=== PATIENT | male | born 1970 | race Caucasian/White ===

== ENCOUNTER 2024-10-14 13:11 | Day surgery (SDC) | payer BC, SELFPAY ==
--- NOTE | 2024-10-11 16:28 | PAT.ANESEVAL ---
Pre-Assessment Diagnosis/Proposed Procedure Planned Operative Procedure(s): RIGHT ORCHIECTOMY RADICAL Anesthesia History Anesthesia History - obstetrician gynecologist: Anesthesia History - obstetrician gynecologist Hx Hospitalization No 10/07/24 13:54 Any Problems With Anesthesia No 10/07/24 13:54 Cholinesterase deficiency No 10/07/24 13:54 You/Your Family Experience No 10/07/24 13:54 fever (hyperthermia) with Relationship Recent Exposure to Contagious Disease Does patient have nerve No 10/07/24 13:54 stimulator Patient instructed to have device shut off --Does patient have Pacemaker or ICD? When Was Last Pacemaker Check QUESTION #4 FULL TEXT: You/Your Family Experience fever (hyperthermia) with Anesthesia Last Oral Intake Last Oral intake: Last Oral Intake NPO since Meds taken in AM with sips of water? Meds patient instructed to take am of surgery PONV PONV - obstetrician gynecologist: PONV - obstetrician gynecologist Female No 10/07/24 13:54 HX of Motion Sickness No 10/07/24 13:54 HX of N/V After Surgery No 10/07/24 13:54 Non-Smoker No 10/07/24 13:54 Duration of Surgery greater Yes 10/07/24 13:54 than 60 minutes Number of Risk Factors 1 10/07/24 13:54 PONV Score Low Risk 10/07/24 13:54 Height & Weight Height & Weight: Anesthesia: Height & Weight Height 5 ft 10 in 11/04/23 10:03 Respiratory Assessment Respiratory Assessment - obstetrician gynecologist: Respiratory Tract Infection Hx - obstetrician gynecologist Hx Respiratory Tract Infection No 10/07/24 13:54 STOP Sleep Apnea STOP Sleep Apnea - obstetrician gynecologist: STOP Sleep Apnea - obstetrician gynecologist Hx Hypertension No 10/07/24 13:54 Hx Sleep Apnea No 10/07/24 13:54 CPAP BIPAP Do you snore loudly (louder Yes 10/07/24 13:54 than talking or can be heard Do you often feel tired/ No 10/07/24 13:54 fatigued/ sleepy during daytime? Has anyone observed you stop No 10/07/24 13:54 breathing during sleep? STOP Results Negative 10/07/24 13:54 QUESTION #5 FULL TEXT : Do you snore loudly (louder than talking or can be heard through closed doors)? 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 Specify any problems Hx of Preganancy in last 3 N/A 10/07/24 13:54 Months Nurse Filling Out Transfusion DSCHRIBER 10/07/24 13:54 & Questions: Date: 10/07/24 10/07/24 13:54 Time: 13:56 10/07/24 13:54 Patient unable to answer at this time (ie. confused, unrespo /Reproduction History /Reproductive History - obstetrician gynecologist: /Reproductive Hx- obstetrician gynecologist Hx Now No 10/07/24 13:54 Gestational Age (in weeks): EDC: Hx Hx Para Hx Section SAB No 10/07/24 13:54 PFSH Medical History (Updated 10/07/24 @ 14:03 by Enedina Angeles) Loss of hearing Wears glasses Cancer Marijuana use Alcohol use Arthritis Back pain Migraine headache Smoker Leg cramps History of pain when walking CINV (chemotherapy-induced nausea and vomiting) Encounter for chemotherapy management Encounter for education Adenocarcinoma, colon Iron deficiency anemia GERD (gastroesophageal reflux disease) Hyperlipidemia Home Medications ?Medication ?Instructions ?Recorded ?Last Taken ?Type acetaminophen 500 mg tablet 1,000 mg PO Q6H PRN pain 10/07/24 Unknown History wevuqqs-kdxtxhukklpjl-ckgwzusx 250 1 tab PO Q6H PRN pain 10/07/24 Unknown History mg-250 mg-65 mg tablet (Excedrin Extra Strength) ibuprofen 800 mg tablet (IBU) 800 mg PO Q8H PRN pain 10/07/24 Unknown History Allergy/AdvReac Type Severity Reaction Status Date / Time No Known Allergies Allergy Verified 10/07/24 13:50 Family History Grandmother No problems noted. Mother Cancer lung Father Myocardial infarction Heart disease Surgical History (Updated 10/07/24 @ 14:03 by Enedina Angeles) Hx of colonoscopy Hx of right hemicolectomy Social History Smoking Status: Current every day smoker tobacco type: cigarettes and smokeless tobacco alcohol intake: current alcohol intake frequency: a few times a month Audit: Pertinent Findings Pertinent Findings EKG Perinent findings: October 09, 2024. Normal sinus rhythm. Left axis deviation. Incomplete right bundle branch block. No significant change compared to EKG of June 30, 2023. Recommendation Anesthesia Recommendation Anesthesia recommendation: OPTIMIZED for anesthesia
[2024-10-14] VITALS (10 sets, daily range): BP systolic 144–163; BP diastolic 85–99; PULSE 79–93; RESP 16–22; TEMP 36.3–37.3; O2SAT 98–100; BMI 32.1
--- NOTE | 2024-10-14 | IMM_PTH ---
PATIENT: RONALD MELO LOC: [facility] [place] U#:[id number] AGE/SX: 54/M ROOM: RE10/14/[address]: Dr. Viet Rea MD : 1970 BED: DIS: 10/14/2024 SPEC #: [id number] RECD: 10/18/24 11:29 STATUS: VIC REQ #: [id number] CL: 10/14/24 00:[address]: Viet Rea DEPT: IMMUNOHISTOCHEMISTRY RECD BY: Venancio Dorado ENTERED: 10/18/24 11:30 SP TYPE: IMMUNO OTHR DR: Dr. Anca Samuel, DO Tissues: A - Testis, NOS Procedures: RCC (add) NAPSIN A (add) CK20 (add) CK5-6 (add) CK7 (add) CK8 (add) HEP PAR (add) KI-67 (add) P53 (add) CT (add) TTF1 (add) Pankeratin (add) P40 (add) CDX2 (add) MOC-31 (add) ER (initial) PHYSICIAN & INSTITUTION [place] [phone] SPECIMEN INFORMATION: Tissue Source: A- Right testicle Clinical Info: Right paratesticular mass Specimen Number: [id number] CPT code: 63392,03200y32 METHODOLOGY: Deparaffinized sections of prefer/formalin-fixed tissue or PAP/DQ stained slides are incubated with monoclonal/polyclonal antibodies/oligonucleotide probes. Localization is made via biotin free immunoperoxidase method. Appropriate controls are performed and reacted as expected. Results on target cell population are indicated in the following table: RESULTS: ANTIBODY / CLONE RESULT Block A 7 AE1-3 (AE1/AE3/PCK26) positive CK7 (OV-TL12/30) negative CK8 (16sxgrG20) positive CK20 (KS20.8) positive CDX2 (JDR7170B) positive MOC-31 (4561) positive TTF-1 (8G7G3/1) positive Napsin A (Rabbit Polyclonal) negative HepPar (OCh1E5) negative RCC (PN-15) negative CK5-6 (D5 & 1684) negative P40 (BC28) negative P53 (DO-7) positive (indeterminate pattern) Ki-67 (30-9) positive, high PSAP (PASE/4LJ) negative These tests were developed and their performance characteristics determined by [facility]. They may not have been cleared or approved by the U.S. Food and Drug Administration. The FDA has determined that such clearance or approval is not necessary. The above immunohistochemical/dualISH markers are ordered and reviewed by the Pathologist. INTERPRETATION: A. Right testicular, radical orchiectomy: Metastatic mucinous adenocarcinoma. See comment. 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 SJ.mr 10/19/2024
[2024-10-14] MEDS: 0.9% Normal Saline (1000mL) 1,000 ML 15 ML IV (14:33)
--- NOTE | 2024-10-14 15:15 | TEST_PTH ---
PATIENT: RONALD MELO LOC: [facility] [place] U#:[id number] AGE/SX: 54/M ROOM: RE10/14/[address]: Dr. Viet Rea MD : 1970 BED: DIS: 10/14/2024 SPEC #: [id number] RECD: 10/17/24 09:55 STATUS: VIC REGeoffrey #: [id number] CL: 10/14/24 15:[address]: Viet Rea DEPT: SURGICAL PATHOLOGY RECD BY: Dania Abraham ENTERED: 10/17/24 11:19 SP TYPE: TESTICLE OTHR DR: Dr. Anca Samuel, DO Tissues: A - Testis, NOS B - Spermatic cord, NOS Procedures: Surgery Specimen Level III Surgery Specimen Level HEADER OPERATION: Orchiectomy PRE-OP DIAGNOSIS: Right paratesticular mass TISSUE SUBMITTED: A- Right testicle, B- Tail of spermatic cord MICROSCOPIC DIAGNOSIS A. Right testicle, radical orchiectomy: Metastatic mucinous adenocarcinoma. See note and comment. NOTE: Immunohistochemistry ([id number]) supports the above diagnosis and consistent with colonic primary. . B. Tail of spermatic cord, biopsy: Negative for carcinoma. 10/18/2024 COMMENT A. The tumor is present in the paratesticular, periepididymal and spermatic cord adiopse tissue. Involvement of the epididymis, testicle or vas deference is not seen. Please make reference to previous specimen from [facility] ([id number]) right colon, hemicolectomy specimen with diagnosis of invasive moderately differentiated adenocarcinoma, colonic type, invading into but not through the muscularis propria, 1 out of 20 regional lymph nodes is positive for metastasis. Margins are free. Immunohistochemistry for microsatellite instability (mismatch repair of protein) can be performed, please notify the laboratory if needed. This case has been reviewed in consultation with Dr. Nunes who concurs with the above diagnosis. IDC:PW MICROSCOPIC DESCRIPTION Slides are reviewed. GROSS DESCRIPTION A. Received in fixative is one container labeled with the patient's name and designated Right testicle. The specimen consists of a radical orchiectomy specimen consisting of testicle with spermatic cord weighing 76.5gm and measuring 10 x 6 x 4cm. Sections reveal a rodriguez solid, mucoidy and focally cystic mass adjacent to the testis and spermatic cord measuring 9 x 3.5 x 2.5cm. Testis measures 4.5 x 3 x 2.5cm. No direct involvement of the testis is noted. Obvious epididymis is identified. Mass does not appear to involve testicular parenchyma. Basin Operator sections are submitted in twelve cassettes as follows: 1- spermatic cord resection margin, 2-6- tumor present in spermatic cord, 7-11- tumor adjacent to testicle, 12- uninvolved portion of testicle parenchyma. B. Received in fixative is one container labeled with the patient's name and designated Tail of spermatic cord. The specimen consists of an irregular piece of adipose tissue measuring 3 x 2 x 1cm. A suture is noted at one edge. The entire specimen is submitted in two cassettes. Cassette 1 contains the area close to the suture. SJIlsa 10/17/2024 TC:[id number] ADDENDUM ADDENDUM ADDENDUM ADDENDUM ADDENDUM ADDENDUM ADDENDUM ADDENDUM ADDENDUM ADDENDUM ADDENDUM ADDENDUM ADDENDUM ADDENDUM ADDENDUM ADDENDUM ADDENDUM ADDENDUM ADDENDUM ADDENDUM ADDENDUM ADDENDUM ADDENDUM ADDENDUM ADDENDUM ADDENDUM ADDENDUM ADDENDUM ADDENDUM ADDENDUM ADDENDUM ADDENDUM ADDENDUM ADDENDUM ADDENDUM ADDENDUM ADDENDUM ADDENDUM ADDENDUM ADDENDUM 12/05/2024 09:53 ADDENDUM 12/07/2024 08:58 ADDENDUM 12/05/2024 09:53 ADDENDUM 12/05/2024 09:53 ADDENDUM 12/05/2024 09:53 ADDENDUM 12/05/2024 09:53 This addendum is added to incorporate an outside pathology consultation report. The case was examined at [facility] by Dr. Klein (#[id number]) and the following diagnosis was rendered. A. Right testicle, radical orchiectomy: - PD-L1 IHC 22C3 pharmDx* expression level: Combined positive score (CPS): 0.9; negative for PD-L1 expression (CPS <1). - Mismatch repair protein (MMR) nuclear expression by IHC: No MMR loss, consistent with microsatellite stable phenotype. - Colon cancer mutation panel: KRAS mutation among other changes consistent with colorectal cancer. - MSI by PCR: Microsatellite stable. - MLH1: Intact - PMS2: Intact - MSH6: Intact - MSH6: Intact - HER2 FISH: negative for amplification. Colon Cancer Mutation Panel: INTERPRETATION: KRAS mutation and dual inactivating APC mutations detected. Comment: Low variant level due to low proportion of tumor cells in sample. HER2 FISH SCORE: Negative INTERPRETATION: Tumor demonstrated no HER2 amplification with HER2/CEP17 ratio less than 2 and HER2 copy number less than 4 by FISH. This case is scored as non-amplified (negative). Internal and external controls show expected signal pattern. HER2/CEP RATIO: 1.1 HER2 COPY NUMBER/CELL: 2.5 MSI BY PCR RESULT: MARY. Tumor is microsatellite stable. Please see complete above mentioned consultation report in EMR MISMATCH REPAIR (MMR) BY IHC WITH INTERPRETATION REPORT FROM [employer] INTERPRETATION: No loss of nuclear expression of MMR proteins: Low probability of MSI-H. Antibody Clone Description Results MLH1 M1 Mismatch repair protein Intact nuclear expression MSH2 [id number] Mismatch repair protein Intact nuclear expression MSH6 44 Mismatch repair protein Intact nuclear expression PMS2 [id number] Mismatch repair protein Intact nuclear expression COMMENT: Background non-neoplastic tissue and/or internal control with intact nuclear expression. Please see complete report in e-chart or EMR
--- NOTE | 2024-10-14 15:54 | PRE.ANES_ITS ---
ASA Classification* ASA Classification ASA Classification: 3 Assessment & Plan Anesthesia* Anesthesia Assessment Anesthesia Assessment: Discussed sedation and/or anesthesia options, risks, benefits, and alternatives with patient/parents/legal guardian/POA. Questions invited. The patient/parents/legal guardian/POA seems to understand and agrees to proceed with anesthesia plan. Reviewed the physical assessment, medical history, allergy history and patient home medications list prior to surgery/procedure/anesthetic and documented any changes. Performed airway and anesthesia risk assessments. Anesthesia Type Anesthesia Type: General History Source History Obtained from:: Patient and Chart Anesthesia Focused Assessment* Temperature: 99.2 F Pulse Rate: 79 Blood Pressure: 163/99 Respiratory Rate: 16 Pulse Ox: 100 Oxygen Delivery Method: Room Air Airway Assessment Mouth opens: >3 cm Mallampati Score: IV Teeth Condition: Intact Neck Range of motion (ROM): Limited ROM (Somewhat decreased extension) Focused Labs Anesthesia Preop lab: CBC WBC 5.8 K/mm3 (4.4-11.0) 11/04/23 09:20 11/04/23 RBC 4.86 M/mm3 (4.6-6.2) 11/04/23 09:20 11/04/23 Hgb 13.2 g/dL (13.0-16.5) 11/04/23 09:20 11/04/23 Hct 39.6 % (40-54) L 11/04/23 09:20 11/04/23 Plt Count 113 K/mm3 (150-450) L 11/04/23 09:20 11/04/23 CHEMISTRY Potassium 4.3 mmol/L (3.5-5.1) 11/04/23 09:20 11/04/23 Sodium 136 mmol/L (136-145) 11/04/23 09:20 11/04/23 Magnesium 2.0 mg/dL (1.6-2.6) 10/21/23 08:15 10/21/23 Phosphorus 2.5 mg/dL (2.5-4.9) 10/21/23 08:15 10/21/23 BUN 11 mg/dL (7-18) 11/04/23 09:20 11/04/23 Creatinine 0.86 mg/dL (0.70-1.30) 11/04/23 09:20 11/04/23 Glucose 204 mg/dL (74-106) H 11/04/23 09:20 11/04/23 COAG Pre-Assessment Diagnosis/Proposed Procedure Planned Operative Procedure(s): RIGHT ORCHIECTOMY RADICAL Anesthesia History Anesthesia History - host/hostess head: Anesthesia History - host/hostess head Hx Hospitalization No 10/07/24 13:54 Any Problems With Anesthesia No 10/07/24 13:54 Cholinesterase deficiency No 10/07/24 13:54 You/Your Family Experience No 10/07/24 13:54 fever (hyperthermia) with Relationship Recent Exposure to Contagious No 10/14/24 14:28 Disease Does patient have nerve No 10/07/24 13:54 stimulator Patient instructed to have device shut off --Does patient have Pacemaker No 10/14/24 14:28 or ICD? When Was Last Pacemaker Check QUESTION #4 FULL TEXT: You/Your Family Experience fever (hyperthermia) with Anesthesia Last Oral Intake Last Oral intake: Last Oral Intake NPO since 00:00 10/14/24 14:28 Meds taken in AM with sips of No 10/14/24 14:28 water? Meds patient instructed to take am of surgery PONV PONV - host/hostess head: PONV - host/hostess head Female No 10/07/24 13:54 HX of Motion Sickness No 10/07/24 13:54 HX of N/V After Surgery No 10/07/24 13:54 Non-Smoker No 10/07/24 13:54 Duration of Surgery greater Yes 10/07/24 13:54 than 60 minutes Number of Risk Factors 1 10/07/24 13:54 PONV Score Low Risk 10/07/24 13:54 Height & Weight Height & Weight: Anesthesia: Height & Weight Height 5 ft 10 in 10/14/24 14:28 Weight: 101.605 kg 10/14/24 14:28 Body Mass Index (BMI) 32.1 10/14/24 14:28 Respiratory Assessment Respiratory Assessment - host/hostess head: Respiratory Tract Infection Hx - host/hostess head Hx Respiratory Tract Infection No 10/07/24 13:54 STOP Sleep Apnea STOP Sleep Apnea - host/hostess head: STOP Sleep Apnea - host/hostess head Hx Hypertension No 10/07/24 13:54 Hx Sleep Apnea No 10/07/24 13:54 CPAP BIPAP Do you snore loudly (louder Yes 10/07/24 13:54 than talking or can be heard Do you often feel tired/ No 10/07/24 13:54 fatigued/ sleepy during daytime? Has anyone observed you stop No 10/07/24 13:54 breathing during sleep? STOP Results Negative 10/07/24 13:54 QUESTION #5 FULL TEXT : Do you snore loudly (louder than talking or can be heard through closed doors)? 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 Specify any problems Hx of Preganancy in last 3 N/A 10/07/24 13:54 Months Nurse Filling Out Transfusion DSCHRIBER 10/07/24 13:54 & Questions: Date: 10/07/24 10/07/24 13:54 Time: 13:56 10/07/24 13:54 Patient unable to answer at this time (ie. confused, unrespo /Reproduction History /Reproductive History - host/hostess head: /Reproductive Hx- host/hostess head Hx Now No 10/07/24 13:54 Gestational Age (in weeks): EDC: Hx Hx Para Hx Section SAB No 10/07/24 13:54 Active Medications Active Medications: Current Medications Generic Name Dose Route Start Last Admin Trade Name Freq PRN Reason Stop Dose Admin Sodium Chloride 1,000 mls @ 15 mls/hr 10/14/24 13:20 10/14/24 14:33 IV 10/20/24 02:39 15 mls/hr .Q48H JUAN ANTONIO Administration Protocol PFSH Medical History Loss of hearing Wears glasses Cancer Marijuana use Alcohol use Arthritis Back pain Migraine headache Smoker Leg cramps History of pain when walking CINV (chemotherapy-induced nausea and vomiting) Encounter for chemotherapy management Encounter for education Adenocarcinoma, colon Iron deficiency anemia GERD (gastroesophageal reflux disease) Hyperlipidemia Home Medications ?Medication ?Instructions ?Recorded ?Last Taken ?Type acetaminophen 500 mg tablet 1,000 mg PO Q6H PRN pain 0 10/07/24 Unknown History mirheyz-zrajfqzzevdom-qnipyfou 250 1 tab PO Q6H PRN pa in 10/07/24 Unknown History mg-250 mg-65 mg tablet (Excedrin Extra Strength) ibuprofen 800 mg tablet (IBU) 800 mg PO Q8H PRN pain 0 10/07/24 Unknown History Allergy/AdvReac Type Severity Reaction Status Date / Time No Known Allergies Allergy Verified 10/14/24 14:28 Family History Grandmother No problems noted. Mother Cancer lung Father Myocardial infarction Heart disease Surgical History Hx of colonoscopy Hx of right hemicolectomy Social History Smoking Status: Current every day smoker tobacco type: cigarettes and smokeless tobacco alcohol intake: current alcohol intake frequency: a few times a month Review of Systems (Anesthesia) ROS Narrative System reviewed and no additional complaints, except as documented.
[2024-10-14] MEDS: Cefazolin 2 GM in Syringe IV (17:36)
[2024-10-14] MEDS: Bupivacaine Mpf 0.5% 30 ML VIAL (17:50)
--- NOTE | 2024-10-14 18:36 | HP.PCM_ITS ---
[facility] - General General Date of Service: 10/14/24 Chief Complaint: Right paratesticular mass HPI Narrative RONALD MELO, is a 54 M who presents to my office with a right paratesticular mass he has a history of colon cancer supposedly this mass was biopsied and came back with adenocarcinoma undergoing procedure removal of this right paratesticular mass that is bothering him he did a PET scan that was negative otherwise and the rest of the body but I think given this fact that he is got a mass here that could be metastatic we can go ahead and remove it he understands it is possible this may not be curative but he also wants to have the testicle removed since it is bothering him. [facility] Medical History Loss of hearing Wears glasses Cancer Marijuana use Alcohol use Arthritis Back pain Migraine headache Smoker Leg cramps History of pain when walking CINV (chemotherapy-induced nausea and vomiting) Encounter for chemotherapy management Encounter for education Adenocarcinoma, colon Iron deficiency anemia GERD (gastroesophageal reflux disease) Hyperlipidemia Home Medications ?Medication ?Instructions ?Recorded ?Last Taken ?Type acetaminophen 500 mg tablet 1,000 mg PO Q6H PRN pain 0 10/07/24 Unknown History fknqray-dtmtdzvfniely-dwmrmosw 250 1 tab PO Q6H PRN pa in 10/07/24 Unknown Histor y mg-250 mg-65 mg tablet (Excedrin Extra Strength) ibuprofen 800 mg tablet (IBU) 800 mg PO Q8H PRN pain 0 10/07/24 Unknown History oxycodone 5 mg tablet 5 mg PO Q6H PRN pain 3 days #14 10/14/24 Unknown Rx tabs Allergy/AdvReac Type Severity Reaction Status Date / Time No Known Allergies Allergy Verified 10/14/24 14:28 Family History Grandmother No problems noted. Mother Cancer lung Father Myocardial infarction Heart disease Surgical History Hx of colonoscopy Hx of right hemicolectomy Social History Smoking Status: Current every day smoker (patient did not smoke today.) tobacco type: cigarettes and smokeless tobacco alcohol intake: current alcohol intake frequency: a few times a month Vital Signs Vital Signs Vital Signs: 10/14/24 14:28 10/14/24 14:28 10/14/24 16:02 Temperature 99.2 F H 99.2 F H Temperature Source Temporal Pulse Rate 79 79 Respiratory Rate 16 16 Respiratory Pattern Normal Blood Pressure 163/99 H 163/99 H Blood Pressure Mean 120 Blood Pressure Source Monitor Blood Pressure Position Semi-Fowlers Blood Pressure Location Right Arm Pulse Ox 100 100 Oxygen Delivery Method Room Air Room Air Weight Weight: 101.605 kg Body Mass Index (BMI) 32.1
--- NOTE | 2024-10-14 18:37 | PCM.DC ---
Discharge Instructions Diet Discharge Diet: No restrictions, Light diet - advance as tolerated and Soft diet DC O2, CPAP, BIPAP needs Home O2 Discharge instructions: No Dressing / Incision Discharge Activity: May Not Drive Return to work on:: 11/04/24 Follow Up Care Please Follow Up With: Viet Rea MD When: next for check up Test Results: Test results from this visit will be discussed in further detail at your follow-up appointment, if applicable. Discharge Plan Admission Primary Reason for Your Visit: Right paratesticular mass Attending Provider: Viet Rea Primary Care Provider: Anca Samuel Instructions Print Language: Romanian Discharge Orders/Prescriptions Prescriptions: New oxycodone 5 mg tablet 5 mg PO Q6H PRN (Reason: pain) 3 Days Qty: 14 0RF Continued acetaminophen 500 mg tablet 1,000 mg PO Q6H PRN (Reason: pain) ibuprofen [IBU] 800 mg tablet 800 mg PO Q8H PRN (Reason: pain) Excedrin Extra Strength 250-250-65 mg tablet 1 tab PO Q6H PRN (Reason: pain) Referrals / Follow Up: Anca Samuel DO [Primary Care Provider] - Viet Rea MD [Med Staff - Active Staff] - Disposition Disposition (needs filled in before D/C Order can be placed): Home, Self Care
--- NOTE | 2024-10-14 18:39 | OP.PCM_ITS ---
Operative Report (Standard) Operative Information Date of Procedure: 10/14/24 Pre-Operative Diagnosis: Right paratesticular mass Post-Operative Diagnosis: The same Surgery/Procedure Performed: Right radical orchiectomy wheel worker: No Type of Anesthesia: General RN Documented Start/Stop Times: Operation Date: 10/14/24 15:15 Case Time Into Pre-Op 10/14/24 13:16 Anesthesia Start 10/14/24 17:36 Into Room 10/14/24 17:36 Procedure Start 10/14/24 17:50 Procedure End 10/14/24 18:33 Procedure Start Time: 17:50 Procedure Stop Time: 18:39 Select all DRAINS/GRAFTS/IMPLANTS that apply: None Estimated Blood Loss: 10cc Specimen collected: Yes Description of specimen(s) removed: Right testicular mass and tail of spermatic cord right Description of surgery: Indication this is a 54-year-old male who does have 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 He was then sent to oncology to get a PET scan the PET scan was negative but he then came to me for second opinion and wishes to have the testicle removed I think it is reasonable to remove this testicle and its masses. Tissues were mass even though it might be metastatic it was bothering him. I did tell the patient it is possible removing this mass may not be curative that he still may have metastatic disease but he wishes to remove the mass. We talked about the risk and benefits of the orchiectomy I plan to do a right radical orchiectomy through an inguinal approach Patient was taken back to the operating room after smooth induction of anesthesia he was placed in dorsolithotomy position and then flat on the table the right inguinal area was shaved prepped and draped in usual sterile fashion I made a fairly large generous incision over the right inguinal area dissected down through Sheeba's fascia above to the cord I then opened up the anterior fascia of the cord and then early high ligation of the spermatic cord was ac complished I then dissected the testicle and the peritesticular mass out from the scrotum up into the field it was fairly fixed to the scrotal wall at the very carefully dissect the mass off the scrotal wall probably from the prior surgery that caused a lot of adhesions after dissecting the mass off the scrotal wall without many taken any violations of the skin then I was able to deliver the entire mass into the field we then suture-ligated the spermatic cord I then palpated the cord I can feel some firmness in the cord so I went a little higher and took a higher off the cord and then suture-ligated the cord again and then sent off the 2 specimens the right testicular mass and then a segment of the distal segment spermatic cord separately. We then irrigated we checked for bleeding and cauterize generously to control bleeding we then closed Sheeba's fascia we then closed the skin layer patient's anesthetic reversed and he is taken back to PACU in good condition and he will follow-up in 1 week for a postop check and that after this I will have him see oncology and will review the tissue report.. Surgical Findings: Right testicle mass and talus Singh cord removed Complications Complications: No Admit VTE Documentation VTE Present on Admission: No VTE Mechan Device Prophylaxis: SCD's VTE Pharm Prophylaxis ordered?: No
--- NOTE | 2024-10-14 18:43 | PCM.POST.ANE ---
Anesthesia: Postop Eval I Current Vital Signs Temperature: 97.3 F Pulse Rate: 90 Blood Pressure: 152/92 Respiratory Rate: 22 Pulse Ox: 98 Assessment Airway patent: Yes Spontaneous unlabored respirations: Yes nausea: No Vomiting: No Anesthesia Complication: No Fluid Hydration Crystalloid volume administer (ml): 1,500 Total IV fluid infused: 1,500 Progress Note Anesthesia document: Postop Eval 1 completed: Yes
[2024-10-14] MEDS: Ketorolac 15 MG/ML Vial IV (18:46)
--- NOTE | 2024-10-14 22:25 | POSTOPAN2_ITS ---
Anesthesia Postop Eval I Sum Postop Eval Completion status Anesthesia document: Postop Eval 1 completed: Yes Anesthesia Postop Eval I Summary Anesthesia Postop Eval I Summary: Anesthesia Postop Eval I: Assessment Summary Airway patent Yes 10/14/24 18:43 NURSE [email or web address] Spontaneous unlabored Yes 10/14/24 18:43 NURSE [email or web address].CSIR respirations Mental status nausea No 10/14/24 18:43 NURSE [email or web address].CSIR Vomiting No 10/14/24 18:43 NURSE [email or web address].CSIR Anesthesia Postop Eval I: Fluid Summary Crystalloid volume administer 1,500 10/14/24 18:43 NURSE [email or web address].CSIR (ml) Colloids volume administered ( ml) Blood Product volume administered (ml) Total IV fluid infused 1,500 10/14/24 18:43 NURSE [email or web address].CSIR Anesthesia Postop Eval I: Summary Notes Anesthesia Complication No 10/14/24 18:43 NURSE [email or web address].CSIR Anesthesia Complication Comment: Post-operative progress note Anesthesia: Postop Eval II Evaluation Mental status: Awake and Calm Pain Level: 1 nausea: No Vomiting: No Complications Anesthesia Complication: No
--- NOTE | 2024-10-14 22:25 | PCM.POSTANE2 ---
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.[email or web address] Spontaneous unlabored Yes 10/14/24 18:43 ROPE COILING MACHINE OPERATOR.CSIR respirations Mental status nausea No 10/14/24 18:43 ROPE COILING MACHINE OPERATOR.CSIR Vomiting No 10/14/24 18:43 ROPE COILING MACHINE OPERATOR.CSIR Anesthesia Postop Eval I: Fluid Summary Crystalloid volume administer 1,500 10/14/24 18:43 ROPE COILING MACHINE OPERATOR.CSIR (ml) Colloids volume administered ( ml) Blood Product volume administered (ml) Total IV fluid infused 1,500 10/14/24 18:43 ROPE COILING MACHINE OPERATOR.CSIR Anesthesia Postop Eval I: Summary Notes Anesthesia Complication No 10/14/24 18:43 ROPE COILING MACHINE OPERATOR.CSIR Anesthesia Complication Comment: Post-operative progress note Anesthesia: Postop Eval II Evaluation Mental status: Awake and Calm Pain Level: 1 nausea: No Vomiting: No Complications Anesthesia Complication: No
== END 2024-10-14 19:38 | disposition home or self-care (01) ==
LOC: SDC 13:13 → AC 13:15
PROVIDERS: PCP Student in an Organized Health Care Education/Training Program; Referring Provider Urology; Visit Provider Urology
PROC: (CPT 54530; principal; 2024-10-14 15:00)
DX: C62.91 Malignant neoplasm of right testis, unspecified whether descended or undescended (principal); F17.210 Nicotine dependence, cigarettes, uncomplicated; F17.290 Nicotine dependence, other tobacco product, uncomplicated; Z90.49 Acquired absence of other specified parts of digestive tract; Z85.038 Personal history of other malignant neoplasm of large intestine
CPT/HCPCS: 54530; 00926; 81002; 88304; 88309; 88341; 88342; J2405

== ENCOUNTER → 2025-03-27 | Outpatient (CLI) | payer BC, SELFPAY ==
--- NOTE | 2025-03-27 15:40 | CT_ITS ---
PROCEDURE: CT CHEST, ABD, PEL W/CONTRAST 03/27/2025 REASON FOR EXAM: COLON [id number] History of partial colon resection and right orchiectomy. TECHNIQUE: Chest, abdomen and pelvis CT with intravenous contrast. Coronal and Sagittal reconstruction series were provided. One or more dose reduction techniques were used (e.g., Automated exposure control, adjustment of the mA and/or kV according to patient size, use of iterative reconstruction technique. PATIENT PREPARATION: Per protocol ORAL CONTRAST TYPE: None. CONTRAST: Isovue-300 VOLUME: 100mL RADIATION DOSE SUMMARY: CTDlvol: 20.2 mGy DLP: 2070.18 mGycm COMPARISON: Prior PET scan dated December 14, 2024. FINDINGS: CT CHEST: Hardware: None Lymph nodes: Small bilateral fat containing axillary lymph nodes. Heart and Vasculature: Minimal coronary artery calcification. Lungs and Airways: The lungs are clear. Pleura: No evidence of pleural effusion. Bones: Degenerative changes of the thoracic spine. CT ABDOMEN/PELVIS: Liver: Diffuse fatty infiltration. There is a 2.1 cm by 1.5 cm by 2.7 cm hypodense nodule in the inferior aspect of the right lobe of the liver. This is not a typical cyst. A focal metastatic deposit should be ruled out. Gallbladder: Unremarkable Spleen: Normal size. Pancreas: Normal size without evidence of mass surrounding inflammation or ductal dilation. Adrenals: Unremarkable Kidneys: Normal renal sizes. No hydronephrosis. Bladder: The urinary bladder is unremarkable although it is not completely distended. Focal calcific plaques are seen in the penis. Bowel: The patient is status post right hemicolectomy. Surgical anastomosis is seen in the proximal aspect of the transverse colon. The sigmoid colon is not completely distended. There appears to be thickening of the wall. Inflammatory process should be ruled out. Multiple tiny linear density are seen within the sigmoid fat. Increased markings are seen in the region of the right groin. This corresponds to the abnormal uptake in the PET scan. This may represent postoperative changes. Clinical correlation is recommended. Lymph nodes: Unremarkable. Vasculature: Unremarkable Peritoneum / Retroperitoneum: No retroperitoneal lymph nodes. Bones: Degenerative changes of the spine. CT/CT Chest, Abd, Pel w/Contrast IMPRESSION: Status post right hemicolectomy. 2.1 cm x 1.5 cm 2.7 cm hypodense nodule in the inferior aspect of the right lob e of the liver. Findings suggestive of mild inflammatory changes in the rectosigmoid colon. Increased markings are seen in the right groin in keeping with the findings on the PET scan. This may represent postoperative changes. Clinical correlation recommended. Reading Location: [id number]
== END | disposition home or self-care (01) ==
LOC: CT 15:23
PROVIDERS: PCP Student in an Organized Health Care Education/Training Program; Referring Provider Internal Medicine Medical Oncology; Visit Provider Internal Medicine Medical Oncology
DX: C18.2 Malignant neoplasm of ascending colon (principal)
CPT/HCPCS: 71260; 74177; Q9967

== ENCOUNTER → 2025-04-08 | Outpatient (CLI) | payer BC, SELFPAY ==
--- OUTSIDE RECORDS SUMMARY | 2025-04-08 10:11 | XMS RPT_ITS | CCD ---
Author Organization [facility] Care Team Providers Care Marker Assembler Name Role Phone ANCA RAMIREZ Primary Care Unavailable SYSTEM, PROVIDER NOT IN Attending Unavaila ble SYSTEM, PROVIDER NOT IN Referring Unavaila ble JAMES, ANCA AMY Primary Care Unavailable SYSTEM, PROVIDER NOT IN Attending Unavaila ble SYSTEM, PROVIDER NOT IN Referring Unavaila ble SYSTEM, PROVIDER NOT IN Attending Unavaila ble SYSTEM, PROVIDER NOT IN Referring Unavaila ble JAMES, ANCA AMY Primary Care Unavailable MELANY QUIJANO Admitting Unavailable MELANY QUIJANO Attending Unavailable [facility], [facility] Primary Care Unavailable RAMIREZ, [facility] Primary Care Unavailable MELANY QUIJANO Attending Unavailable MELANY QUIJANO Admitting Unavailable NAVARRO ORTA Referring Unavailvipin Orta MD, Navarro Loyd Attending Unavailabl e RAMIREZ, ANCA Primary Care Unavailable RAMIREZ, ANCA Primary Care Unavailable Chano Chicas MD Attending Unavailable RAMIREZ, ANCA Referring Unavailable RAMIREZ, ANCA Primary Care Unavailable RAMIREZ, ANCA Attending Unavailable RAMIREZ, ANCA Referring Unavailable RAMIREZ, ANCA Primary Care Unavailable LEYLA BOLAND Attending Unavailable RAMIREZ, ANCA Primary Care Unavailable NAVARRO ORTA Attending Unavailable RAMIREZ, ANCA Primary Care Unavailable RAMIREZ, ANCA Attending Unavailable RAMIREZ, ANCA Referring Unavailable NAVARRO ORTA Attending Unavailable RAMIREZ, ANCA Referring Unavailable RAMIREZ, ANCA Primary Care Unavailable VIGNESH PRUETT Attending Unavailable DAVID RAMIREZ Admitting Unavailable DAVID RAMIREZ Attending Unavailable DAVID RAMIREZ Primary Care Unavailable YOANDY CABRAL MD Consulting Unavailable YOANDY CABRAL MD Referring Unavailable PROVIDER, UNKNOWN Consulting Unavailable PROVIDER, UNKNOWN Consulting Unavailable PROVIDER, UNKNOWN Consulting Unavailable GAYLE MEHTA Admitting Unavailable GAYLE MEHTA Attending Unavailable GAYLE MEHTA Primary Care Unavailable YOANDY CABRAL MD Consulting Unavailable PROVIDER, UNKNOWN Consulting Unavailable PROVIDER, UNKNOWN Consulting Unavailable PROVIDER, UNKNOWN Consulting Unavailable FAVIAN HILTON MD Admitting Unavailable FAVIAN HILTON MD Attending Unavailable FAVIAN HILTON MD Primary Care Unavailable YOANDY CABRAL MD Consulting Unavailable PROVIDER, UNKNOWN Consulting Unavailable PROVIDER, UNKNOWN Consulting Unavailable PROVIDER, UNKNOWN Consulting Unavailable James NOLAND, Dr. Anca Thomson Primary Care Provider James NOLAND, Dr. Anca Thomson Referring Provider [phone] Dr. George Avila MD Attending Provider [phone] Margarita HORN, Dr. Vazquez Referring Provider George Avila Attending Unavailable James, Anca Thomson Primary Care Unavailable James, Anca Thomson Referring Unavailable Prah, George Attending Unavailable James, Anca Thomson Primary Care Unavailable Ramirez, Anca Thomson Referring Unavailable Ramirez, Anca Thomson Primary Care Unavailable James, Anca Thomson Referring Unavailable Prajim, George Attending Unavailable James, Anca Thomson Primary Care Unavailable Anca Ramirez Referring Unavailable PraGeorge fernandez Attending Unavailable Prah, George Attending Unavailable Anca Ramirez Primary Care Unavailable George Avila Referring Unavailable RonaViet Referring Unavailable Rona, Viet Bowles Attending Unavailable James, Anca Thomson Primary Care Unavailable James, Anca Thomson Primary Care Unavailable PraGeorge fernandez Referring Unavailable Margarita, George Attending Unavailable Medications Current Medications Medication Drug Class(es) Dates Sig (Normalized) Sig (Original) acetaminophen 500 mg oral tablet (2 sources) Start: 10-07-2024 take 2 tablets by mouth every six hours as needed for pain Acetaminophen 500 mg tablet Active 1000 mg PO EVERY 6 HOURS as needed for pain October 07, 2024 1:00am acetaminophen 250 mg / aspirin 250 mg / caffeine 65 mg oral tablet (2 sources) Platelet Aggregation Inhibitor, Nonsteroidal Anti-inflammatory Drug, Central Nervous System Stimulant, Methylxanthine Start: 10-07-2024 Aspirin-Acetaminoph en-Caffeine (Excedrin Extra Strength) 250-250-65 mg tablet Active 1 {tbl} PO EVERY 6 HOURS as needed for pain October 07, 2024 1:00am ibuprofen 800 mg oral tablet (2 sources) Nonsteroidal Anti-inflammatory Drug Start: 10-07-2024 take 1 tablet by mouth every eight hours as needed for pain Ibuprofen (Ibu) 800 mg tablet Active 800 mg PO Q8H as needed for pain October 07, 2024 1:00am oxyCODONE hydrochloride 5 mg oral tablet (2 sources) Opioid Agonist Start: 10-14-2024 take 1 tablet by mouth every six hours as needed for pain Oxycodone 5 mg tablet Active 5 mg PO EVERY 6 HOURS as needed for pain 14 3 0 October 14, 2024 Sarcoma of right paratesticular region Turmeric extract (2 sources) Start: 11-21-2024 take 1 mg by mouth once daily Turmeric 400 mg capsule Active mg PO DAILY November 21, 2024 12:00am Completed/Discontinued Medications Medication Drug Class(es) Dates Sig (Normalized) Sig (Original) atorvastatin 20 mg oral tablet (2 sources) HMG-CoA Reductase Inhibitor Start: 07-22-2023 End: 10-07-2024 take 1 tablet by mouth at bedtime Atorvastatin 20 mg tablet Discontinued 20 mg PO AT BEDTIME July 22, 2023 1:00am October 07, 2024 2:51pm cholecalciferol 0.05 mg oral capsule (2 sources) Vitamin D Start: 07-29-2023 End: 10-07-2024 take 1 capsule by mouth once daily Cholecalciferol (Vitamin D3) 50 mcg (2,000 unit) capsule Discontinued 50 ug PO DAILY July 29, 2023 1:00am October 07, 2024 2:51pm Diclofenac (4 sources) Nonsteroidal Anti-inflammatory Drug Start: 09-29-2023 End: 10-07-2024 Diclofenac Sodium (Arthritis Pain (Diclofenac)) 1 % gel Discontinued 0 .ROUTE .COMPLEX 100 0 September 29, 2023 8:56am October 07, 2024 2:51pm Malignant neoplasm of colon Malignant neoplasm of colon, unspecified APPLY ONE INCH TOPICALLY TWICE DAILY TO PALMS OF HANDS AND SOLES OF FEET. Start: 07-30-2023 End: 09-29-2023 Diclofenac Sodium (Arthritis Pain (Diclofenac)) 1 % gel Discontinued 1 [in_us] TOPICAL .COMPLEX 100 1 July 30, 2023 1:00am September 29, 2023 8:56am Malignant neoplasm of colon Malignant neoplasm of colon, unspecified 1 inch topically twice daily to palms of hands and soles of feet ferrous sulfate 325 mg delayed release oral tablet (2 sources) Start: 07-29-2023 End: 10-07-2024 take 1 tablet by mouth once daily Ferrous Sulfate 325 mg (65 mg iron) tablet,delayed release (DR/EC) Discontinued 325 mg PO DAILY July 29, 2023 1:00am October 07, 2024 2:51pm glipiZIDE 10 mg oral tablet (2 sources) Sulfonylurea Start: 07-22-2023 End: 07-29-2023 take 1 tablet by mouth once daily Glipizide 10 mg tablet Discontinued 10 mg PO DAILY July 22, 2023 1:00am July 29, 2023 4:56pm lidocaine 25 mg/ml / prilocaine 25 mg/ml topical cream (4 sources) Antiarrhythmic, Amide Local Anesthetic Start: 11-03-2023 End: 10-07-2024 Lidocaine-Prilocaine 2.5-2.5 % cream Discontinued 0 .ROUTE .COMPLEX 30 0 November 03, 2023 9:51am October 07, 2024 2:51pm Malignant neoplasm of colon Malignant neoplasm of colon, unspecified APPLY TOPICALLY ONCE NEEDED FOR PORT ACCESS FOR 30 DAYS Start: 07-30-2023 End: 11-03-2023 Lidocaine-Prilocaine 2.5-2.5 % cream Discontinued 1 NMA TOPICAL ONCE as needed for port access July 30, 2023 1:00am November 03, 2023 9:51am Malignant neoplasm of colon Malignant neoplasm of colon, unspecified Ik-Zom-Cqsfn-W6-Fqfbkzm-Jrgz in (Centrum Silver Men) [phone] mcg tablet (2 sources) Start: 07-22-2023 End: 10-07-2024 We-Zdw-Niuuz-B1-Vkysobm-Vdgi in (Centrum Silver Men) [phone] mcg tablet Discontinued 1 {tbl} PO DAILY July 22, 2023 1:00am October 07, 2024 2:51pm ondansetron 8 mg disintegrat ing oral tablet (2 sources) Seroto mendez-3 Recept or Antago nist Start: 07-30-2023 End: 10-07-2024 take 1 tablet by mouth every eight hours as needed for nausea and vomiti ng Ondansetron 8 mg tablet,disintegrating Discontinued 8 mg PO Q8H as needed for nausea and vomiting 30 2 July 30, 2023 1:00am October 07, 2024 2:51pm Malignant neoplasm of colon Malignant neoplasm of colon, unspecified pantoprazole 40 mg delayed release oral tablet (2 sources) Proton Pump Inhibi tor Start: 07-22-2023 End: 10-07-2024 take 1 tablet by mouth once daily Pantoprazole 40 mg tablet,delayed release (DR/EC) Discontinued 40 mg PO DAILY July 22, 2023 1:00am October 07, 2024 2:51pm potassium chloride 20 meq extended release oral tablet (2 sources) Start: 07-29-2023 End: 10-07-2024 take 1 tablet by mouth once daily Potassium Chloride 20 mEq tablet extended release Discontinued 20 meq PO DAILY July 29, 2023 1:00am October 07, 2024 2:51pm monobasic potassium phosphat e 0.0408 meq/ml oral solution (2 sources) Start: 09-30-2023 End: 10-07-2024 Potassium Phosphate, Monobas ic 500 mg tablet,soluble Discontinued 1000 mg PO TWICE A DAY 10 September 30, 2023 1:00am October 07, 2024 2:51pm Problems Active Problems Problem Classification Problem Date Documented Date Episodic/Chronic Administrative/social admission (2 sources) Patient encounter status; Translations: [Counseling, unspecified] 07-30-2023 Episodic Cancer of colon (10 sources) Malignant neoplasm of cecum; Translations: [Malignant neoplasm of colon, unspecified] Onset: 02-24-2024 12-20-2024 Chronic Comment on above: Cecal colon cancer, S/P R hemicolectomy, Pathology showed Mucinous adenocarcinoma, tumor invades Muscularis propria, Lymph nodes 09/19 positive. pT2 pN1a.Stage IIIA Colon cancer. Low risk disease.Got adjuvant XELOX x 4 cycles from 08/19/23 to 11/04/2023.Metastatic disease to the right scrotal area paratesticular area status post right radical orchiectomy.Comes for F/u.PET/CT 12/13/2024 showed Hypermetabolic activity in the R groin with no mass. CEA 3.7 on 11/21/2024. ctDNA was 0.23 on 11/21/2024.Discussed findings, treatment with chemotherapy, observation since there is no mass in the groin. Pt wants short term observation with CT scan. Cecal colon cancer, S/P R hemicolectomy, Pathology showed Mucinous adenocarcinoma, tumor invades Muscularis propria, Lymph nodes 1/20 positive. pT2 pN1a.Stage IIIA Colon cancer. Low risk disease.Got adjuvant XELOX x 4 cycles from 08/19/23 to 11/04/2023.Metastatic disease to the right scrotal area paratesticular area status post right radical orchiectomy.PET/CT 12/13/2024 showed Hypermetabolic activity in the R groin with no mass. CEA 3.7 on 11/21/2024. ctDNA was 0.23 on 11/21/2024.Comes for follow up.CT on 03/27/2025 shows new Liver lesion. 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 Malignant neoplasm without specification of site (4 sources) Malignant (primary) neoplasm, unspecified; Translations: [Malignant (primary) neoplasm, unspecified] Onset: 03-22-2024 Chronic Nausea and vomiting (2 sources) Chemotherapy-induced nausea and vomiting; Translations: [Nausea with vomiting, unspecified] 10-07-2024 Episodic Comment on above: 2022 Other aftercare (2 sources) Follow-up status; Translations: [Encounter for follow-up examination after completed treatment for conditions other than malignant neoplasm] 10-14-2023 Episodic Comment on above: Counts OK. Other aftercare (1 source) Other rodent exterminator (current) drug therapy; Translations: [Other rodent exterminator (current) drug therapy] Onset: 04-03-2025 Episodic Other nutritional; endocrine; and metabolic disorders (2 sources) Hypophosphatemia; Translations: [Other disorders of phosphorus metabolism] 09-30-2023 Chronic Secondary malignancies (1 source) Secondary and unspecified malignant neoplasm of lymph node, unspecified; Translations: [SECONDARY AND UNSP MALIGNANT NEOPLASM OF LYMPH NODE, UNSP] Onset: 02-24-2024 Chronic Secondary malignancies (1 source) Secondary malignant neoplasm of genital organs; Translations: [SECONDARY MALIGNANT NEOPLASM OF GENITAL ORGANS] Onset: 02-24-2024 Chronic Secondary malignancies (6 sources) Secondary malignant neoplasm of unspecified site; Translations: [Metastatic adenocarcinoma] Onset: 11-30-2024 12-20-2024 Chronic Comment on above: Involves right para testicular tissue s/p right radical cystectomy orchiectomy.Metastatic colon cancer and treatment with chemotherapy/monoclonal antibodies/immunotherapy depending on molecular markers. Patient agrees to proceed.CEA on 11/21/2024 was 3.7.PT wants observation for now. Involves right para testicular tissue s/p right radical cystectomy orchiectomy.Metastatic colon cancer and treatment with chemotherapy/monoclonal antibodies/immunotherapy depending on molecular markers. Patient agrees to proceed.CEA on 11/21/2024 was 3.7.CEA on 03/27/2025 was 6.1PT wants observation for now.CT shows new Liver lesion. Unclassified (1 source) Cough, unspecified; Translations: [Cough, unspecified] Onset: 04-03-2025 Viral infection (2 sources) Viral disease; Translations: [Viral infection, unspecified] 10-14-2023 Episodic Past or Other Problems Problem Classification Problem Date Documented Da te Episodic/Chronic Other male genital disorders (1 source) Other specified disorders of the male genital organs; Translations: [Other specified disorders of the male genital organs] Onset: 10-26-2024 Episodic Results Test Name Value Interpretation Reference Range Facility Oncology Visit Reporton Oncology Visit Report [facility] [address] [place] [address] OFFICE VISIT Date of Service: 04/03/25 1550 MR#: [id number] Acct: [id number] Name: RONALD MELO Rep #: [id number] : 1970 From: George Avila MD Age/Sex: 55/M Location: [facility] Status: Signed HPI Subjective Date of Service 04/03/25 Chief Complaint F/u for R paratesticular mass-adenocarcinoma/Colon cancer. History of Present Illness 55y.o.man presented with Blood in the stools. Colonoscopy on 06/08/2023 showed large mass filling in his cecal vault. 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 CEA on 06/19/[address] chest abdomen and pelvis on 06/26/2023 showed 4.6 cm mass at the ileocecal valve, no evidence of metastatic disease. He underwent right hemicolectomy on 07/08/2023. Pathology showed mucinous adeno carcinoma, moderately differentiated, grade 2, tumor invades muscularis propria, margins negative, lymph nodes 1 out of 20 positive, pathologic staging pT2 pN1a. Stage IIIA. He was referred for further management. Port was placed on 08/12/2023. Began adjuvant CapeOx on 08/19/23, cycle 2 given 09/09/2023. C3 given on 09/30/2023. Finished C4 Xeloda on 11/04/2023. He developed right testicular swelling , presented to Dr. Rea with right paratesticular mass. Biopsy done at [facility] showed adenocarcinoma. He had a PET CT scan which was reported as negative. He underwent right radical orchiectomy on 10/14/2024, pathology showed metastatic mucinous adenocarcinoma present in the paratesticular, jerry- epididymal and spermatic cord adipose tissue. He had a PET/CT done on 12/13/2024 which showed R groin activity-post op changes with normal CEA. He elected observation. Comes for follow up, had CT done. He feels well. [facility] Medical History Loss of hearing Wears glasses Cancer Marijuana use Alcohol use Arthritis Back pain Migraine headache Smoker Leg cramps History of pain when walking CINV (chemotherapy-induced nausea and vomiting) Encounter for chemotherapy management Encounter for education Adenocarcinoma, colon Iron deficiency anemia GERD (gastroesophageal reflux disease) Hyperlipidemia Surgical History Hx of colonoscopy Hx of right hemicolectomy Family History Grandmother No problems noted. Mother Cancer lung Father Myocardial infarction Heart disease Social History Smoking Status: Current some day smoker (patient did not smoke today.) alcohol intake: current alcohol intake frequency: a few times a month ROS Constitutional Constitutional: Reports systems reviewed and no addt'l complaints, except as documented Eyes Eyes: Reports systems reviewed and no addt'l complaints, except as documented ENT HEENT: Reports systems reviewed and no addt'l complaints, except as documented Cardiovascular Cardiovascular: Reports systems reviewed and no addt'l complaints, except as documented Respiratory/Chest Respiratory/Chest: Reports systems reviewed and no addt'l complaints, except as documented Gastrointestinal Gastrointestinal: Reports systems reviewed and no addt'l complaints, except as documented Genitourinary Genitourinary: Reports systems reviewed and no addt'l complaints, except as documented Musculoskeletal Musculoskeletal: Reports systems reviewed and no addt'l complaints, except as documented Integumentary Integumentary: Reports systems reviewed and no addt'l complaints, except as documented Neurologic Neurologic: Reports systems reviewed and no addt'l complaints, except as documented Psychiatric Psychiatric: Reports systems reviewed and no addt'l complaints, except as documented Endocrine Endocrinology: Reports systems reviewed and no addt'l complaints, except as documented Hematologic/Lymphatic Hematologic/Lymphatic: Reports systems reviewed and no addt'l complaints, except as documented Allergic/Immunologic Allergic/Immunologic: Reports systems reviewed and no addt'l complaints, except as documented Intake Vital Signs 12/20/24 15:55 04/03/25 15:53 Height 5 ft 10 in 5 ft 10 in Weight: 100.442 kg BMI 31.7 BP 131/79 H Blood Pressure Location Rt brachial Position Sitting Respiration 18 Pulse 90 Pulse Source Monitor Temp 97 F L Temperature Source Temporal Artery Pulse Oximetry (%) 97 Oxygen Delivery Method room air Intake Accompanied by: Is patient in pain?: No Allergies No Known Allergies Allergy (Verified 04/03/25 15:53) Medications ???Medication ???Instructions ???Recorded ???Confirmed ???Type (more content not included)... Normal [facility] Carcinoembryonic Antigenon 0 03-29-2025 CEA 6.1 ng/mL High 0.0-4.7 [facility] Comment on above: Result Comment: Nons mokers <3.9 Smokers <5.6 [facility] Electrochemiluminescence Immunoassay (ECLIA) Values obtained with different assay methods or kits cannot be used interchangeably. Results cannot be interpreted as absolute evidence of the presence or absence of malignant disease. Performed at: - [facility] [id number] Wh[address] Attendant: Jonny Aj PhD, Phone: [phone] Performed By: #### L 3100.2300 #### [facility] [address] [place] [address]. [place], [address] CT Chest, Abd, Pel w/Contras ton 03-27-2025 CT Chest, Abd, Pel w/Contrast [facility] [address] [place] [address] [id number] [address] Chest, Abd, Pel w/Contrast MR#: [id number] Acct: [id number] Name: RONALD MELO Rep #: [id number] : 1970 M 55 From: Kenton pulido MD PCP: Dr. nAca Ramirez, DO Status: REG CLI Study: CT Chest, Abd, Pel w/Contrast Date of Exam: Exam# [id number] Ordering Dr: George Avila MD PROCEDURE: CT CHEST, ABD, PEL W/CONTRAST 03/27/2025 REASON FOR EXAM: COLON [id number] History of partial colon resection and right orchiectomy. TECHNIQUE: Chest, abdomen and pelvis CT with intravenous contrast. Coronal and Sagittal reconstruction series were provided. One or more dose reduction techniques were used (e.g., Automated exposure control, adjustment of the mA and/or kV according to patient size, use of iterative reconstruction technique. PATIENT PREPARATION: Per protocol ORAL CONTRAST TYPE: None. CONTRAST: Isovue-300 VOLUME: 100mL RADIATION DOSE SUMMARY: CTDlvol: 20.2 mGy DLP: 2070.18 mGycm COMPARISON: Prior PET scan dated December 14, 2024. FINDINGS: CT CHEST: Hardware: None Lymph nodes: Small bilateral fat containing axillary lymph nodes. Heart and Vasculature: Minimal coronary artery calcification. Lungs and Airways: The lungs are clear. Pleura: No evidence of pleural effusion. Bones: Degenerative changes of the thoracic spine. CT ABDOMEN/PELVIS: Liver: Diffuse fatty infiltration. There is a 2.1 cm by 1.5 cm by 2.7 cm hypodense nodule in the inferior aspect of the right lobe of the liver. This is not a typical cyst. A focal metastatic deposit should be ruled out. Gallbladder: Unremarkable Spleen: Normal size. Pancreas: Normal size without evidence of mass surrounding inflammation or ductal dilation. Adrenals: Unremarkable Kidneys: Normal renal sizes. No hydronephrosis. Bladder: The urinary bladder is unremarkable although it is not completely distended. Focal calcific plaques are seen in the penis. Bowel: The patient is status post right hemicolectomy. Surgical anastomosis is seen in the proximal aspect of the transverse colon. The sigmoid colon is not completely distended. There appears to be thickening of the wall. Inflammatory process should be ruled out. Multiple tiny linear density are seen within the sigmoid fat. Increased markings are seen in the region of the right groin. This corresponds to the abnormal uptake in the PET scan. This may represent postoperative changes. Clinical correlation is recommended. Lymph nodes: Unremarkable. Vasculature: Unremarkable Peritoneum / Retroperitoneum: No retroperitoneal lymph nodes. Bones: Degenerative changes of the spine. CT/CT Chest, Abd, Pel w/Contrast IMPRESSION: Status post right hemicolectomy. 2.1 cm x 1.5 cm 2.7 cm hypodense nodule in the inferior aspect of the right lobe of the liver. Findings suggestive of mild inflammatory changes in the rectosigmoid colon. Increased markings are seen in the right groin in keeping with the findings on the PET scan. This may represent postoperative changes. Clinical correlation recommended. Reading Location: [id number] CC: Dr. Anca Ramirez DO; Dr. George Avila MD Table Games Floor Supervisor: Signed Normal [facility] NATERAon 03-27-2025 SHIRIN SEE SCANNED REPORT Normal [facility] Comment on above: Performed By: #### L 900.0098 #### [facility] [address] [place], [address] Serum or plasma carcinoembry onic antigen measurement (mass/volume)Ordered By: George Avila on 03-27-2025 Carcinoembryonic Ag [Mass/Vol] 6.1 ng/mL High 0.0-4.7 [facility] Comment on above: Nonsmokers <3.9 Smok ers <5.6[facility] Electrochemiluminescence Immunoassay(ECLIA)Values obtained with different assay methods or kitscannot be used interchangeably. Results cannot beinterpreted as absolute evidence of the presence orabsence of malignant disease.Performed at: [facility] [id number] Director: Jonny Aj PhD, Phone: [phone] Oncology Visit Reporton 11-30 Oncology Visit Report [facility] [address] [place] [address] OFFICE VISIT Date of Service: 12/20/24 1553 MR#: [id number] Acct: [id number] Name: RONALD MELO Rep #: [id number] : 1970 From: George Avila MD Age/Sex: 54/M Location: [facility] Status: Signed HPI Subjective Date of Service 12/20/24 Chief Complaint F/u for R paratesticular mass-adenocarcinoma. History of Present Illness 54y.o.man presented with Blood in the stools. Colonoscopy on 06/08/2023 showed large mass filling in his cecal vault. 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 CEA on 06/19/[address] chest abdomen and pelvis on 06/26/2023 showed 4.6 cm mass at the ileocecal valve, no evidence of metastatic disease. He underwent right hemicolectomy on 07/08/2023. Pathology showed mucinous adeno carcinoma, moderately differentiated, grade 2, tumor invades muscularis propria, margins negative, lymph nodes 1 out of 20 positive, pathologic staging pT2 pN1a. Stage IIIA. He was referred for further management. Port was placed on 08/12/2023. Began adjuvant CapeOx on 08/19/23, cycle 2 given 09/09/2023. C3 given on 09/30/2023. Finished C4 Xeloda on 11/04/2023. He developed right testicular swelling , presented to Dr. Rea with right paratesticular mass. Biopsy done at [facility] showed adenocarcinoma. He had a PET CT scan which was reported as negative. 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 He had a PET/CT done with ctDNA. Comes for follow up, to discuss further management. He feels well. [facility] Medical History Loss of hearing Wears glasses Cancer Marijuana use Alcohol use Arthritis Back pain Migraine headache Smoker Leg cramps History of pain when walking CINV (chemotherapy-induced nausea and vomiting) Encounter for chemotherapy management Encounter for education Adenocarcinoma, colon Iron deficiency anemia GERD (gastroesophageal reflux disease) Hyperlipidemia Surgical History Hx of colonoscopy Hx of right hemicolectomy Family History Grandmother No problems noted. Mother Cancer lung Father Myocardial infarction Heart disease Social History Smoking Status: Current some day smoker (patient did not smoke today.) alcohol intake: current alcohol intake frequency: a few times a month Intake Vital Signs 11/30/24 15:59 12/20/24 15:55 Height 5 ft 10 in 5 ft 10 in Weight: 99.535 kg 100.386 kg BMI 31.4 31.7 BP 157/88 H 127/80 H Blood Pressure Location Rt brachial Rt brachial Position Sitting Sitting Respiration 18 18 Pulse 80 70 Pulse Source Monitor Monitor Temp 98.5 F 98.5 F Temperature Source Temporal Artery Temporal Artery Pulse Oximetry (%) 99 99 Oxygen Delivery Method room air room air Intake Is patient in pain?: No Allergies No Known Allergies Allergy (Verified 12/20/24 15:58) Medications ???Medication ???Instructions ???Recorded ???Confirmed ???Type acetaminophen 500 mg tablet 1,000 mg PO Q6H PRN pain 10/07/24 12/20/24 History rlcquru-vseogytljxptu-wgme eine 250 1 tab PO Q6H PRN pain 10/07/24 0 12/20/24 History mg-250 mg-65 mg tablet (Excedrin Extra Strength) ibuprofen 800 mg tablet (IBU) 800 mg PO Q8H PRN pain 10/07/24 History oxycodone 5 mg tablet 5 mg PO Q6H PRN pain 3 days #14 12/20/24 Rx tabs turmeric 400 mg capsule mg PO DAILY 11/21/24 12/20/24 Hist ory Central Venous Access Central Venous Access: No 12/13/2024 PET/CT reviewed. PET/PET/CT Tumor Base -Thigh Subs IMPRESSION: FDG avid- In the right groin area, increased uptake is seen within the subcutaneous tissues, with SUV max of 7.1 This most probably represents postsurgical or posttraumatic change; recommend clinical and historical correlation. Suspicious- No significant suspicious abnormalities are otherwise noted. Other: No additional comments. Please note the low-dose CT scan was performed to facilitate PET image reconstruction and anatomic localization and does not replace a diagnostic CT. Any diagnostic CT requested and performed at the time of the PET will be reported separately. Coding Level of Care Code Off vis,est,level 4 Exam Problem Focused Diagnoses Malignant neoplasm of ascending colon C18.2 Colon location: ascending Metastatic adenocarcinoma C79.9 Assessme (more content not included)... Normal [facility] PET/CT Tumor Base -Thigh Sub son 12-13-2024 PET/CT Tumor Base -Thigh Subs [facility] [address] [place] [address] PET/CT Tumor Base -Thigh Subs MR#: [id number] Acct: [id number] Name: KAMERONRONALD Duncan Rep #: [id number] : 1970 M 54 From: Melany Wooten PCP: Dr. Anca Ramirez, DO Status: REG RCR Study: PET/CT Tumor Base -Thigh Subs Date of Exam: Exam# [id number] Ordering Dr: George Avila MD PROCEDURE: PET/CT TUMOR BASE -THIGH SUBS 12/13/2024 REASON FOR EXAM: 54 y/o M with RESTAGING COLORECTAL CANCER. History of malignant neoplasm of the ascending colon. TECHNIQUE: Following the intravenous administration of radionucleotide, image acquisition on a dedicated PET/CT unit was performed at one hour post injection. A preliminary CT study encompassing the Skull base, neck, chest, abdomen, pelvis, and proximal thighs was performed for purposes of attenuation correction and anatomic localization. The proximal thighs were also included. The patient's blood glucose level was 132 mg/dL (allowable range: 50-180 mg/dL). RADIOPHARMACEUTICAL: 14.537 mCi 18F-FDG (Fluorodeoxyglucose F18) IV was injected into he patient. RADIATION DOSE SUMMARY: Effective Dose: Approximately 7 mSv for a standard whole-body PET scan Organ Doses: Varies by organ, with higher doses typically to the bladder, liver, and brain COMPARISON: COMPARISON FROM CT, PET OR OTHER PERTINENT EXAMS: No priors available. FINDINGS: Physiologic uptake: There may be expected metabolic uptake within the brain, tongue and floor of the mouth and larynx/vocal cords, heart, kriss (many normal individuals have hilar uptake in less than 3 nodes with mildly avid hilar nodes less than 2.7 SUV), liver and spleen, system, and GI tract and symmetric muscle uptake. FDG AVID AND NON-AVID LESIONS. Reported avid SUV values (g/mL*) are maximum SUV. NECK: There are no significant neck abnormalities. CHEST: Chest wall- There are no significant chest wall abnormalities. Axilla- There are no significant axillary abnormalities. Lung parenchyma- There are no significant lung parenchyma abnormalities. Mediastinum- There are no significant hilar or mediastinal adenopathy. Pleura- There are no significant pleural abnormalities. ABDOMEN: Stomach- No significant abnormalities. Liver- No significant abnormalities. Spleen- No significant abnormalities. Pancrease- No significant abnormalities. Kidneys- No significant abnormalities. Bowel- Normal bowel activity. Spine- No significant abnormalities. PELVIS: In the right groin area, increased uptake is seen within the subcutaneous tissues, with SUV max of 7.1 This most probably represents postsurgical or posttraumatic change; recommend clinical and historical correlation. Bowel- Normal physiologic bowel activity is identified. Masses- There are no pelvic masses. LOWER EXTREMITIES: Bones- With the use of bone window settings, there are no osteolytic or osteoblastic lesions. There are no FDG avid lesions within the visualized portion of the axial skeleton. PET/PET/CT Tumor Base -Thigh Subs IMPRESSION: FDG avid- In the right groin area, increased uptake is seen within the subcutaneous tissues, with SUV max of 7.1 This most probably represents postsurgical or posttraumatic change; recommend clinical and historical correlation. Suspicious- No significant suspicious abnormalities are otherwise noted. Other: No additional comments. Please note the low-dose CT scan was performed to facilitate PET image reconstruction and anatomic localization and does not replace a diagnostic CT. Any diagnostic CT requested and performed at the time of the PET will be reported separately. Reading Location: [address] CC: Dr. Anca Ramirez DO; Dr. George Avila MD Table Games Floor Supervisor: Signed Normal [facility] Oncology Visit Reporton Oncology Visit Report [facility] [address] [place] [address] OFFICE VISIT Date of Service: 11/30/24 1557 MR#: [id number] Acct: [id number] Name: RONALD MELO Rep #: [id number] : 1970 From: George Avila MD Age/Sex: 54/M Location: [facility] Status: Signed HPI Subjective Date of Service 11/30/24 Chief Complaint F/u for R paratesticular mass-adenocarcinoma. History of Present Illness 54y.o.man presented with Blood in the stools. Colonoscopy on 06/08/2023 showed large mass filling in his cecal vault. 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 CEA on 06/19/[address] chest abdomen and pelvis on 06/26/2023 showed 4.6 cm mass at the ileocecal valve, no evidence of metastatic disease. He underwent right hemicolectomy on 07/08/2023. Pathology showed mucinous adeno carcinoma, moderately differentiated, grade 2, tumor invades muscularis propria, margins negative, lymph nodes 1 out of 20 positive, pathologic staging pT2 pN1a. Stage IIIA. He was referred for further management. Port was placed on 08/12/2023. Began adjuvant CapeOx on 08/19/23, cycle 2 given 09/09/2023. C3 given on 09/30/2023. Finished C4 Xeloda on 11/04/2023. He developed right testicular swelling , presented to Dr. Rea with right paratesticular mass. Biopsy done at [facility] showed adenocarcinoma. He had a PET CT scan which was reported as negative. 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 Comes for follow up, to discuss further management. He feels well. [facility] Medical History Loss of hearing Wears glasses Cancer Marijuana use Alcohol use Arthritis Back pain Migraine headache Smoker Leg cramps History of pain when walking CINV (chemotherapy-induced nausea and vomiting) Encounter for chemotherapy management Encounter for education Adenocarcinoma, colon Iron deficiency anemia GERD (gastroesophageal reflux disease) Hyperlipidemia Surgical History Hx of colonoscopy Hx of right hemicolectomy Family History Grandmother No problems noted. Mother Cancer lung Father Myocardial infarction Heart disease Social History Smoking Status: Current some day smoker (patient did not smoke today.) alcohol intake: current alcohol intake frequency: a few times a month Intake Vital Signs 11/21/24 14:52 11/30/24 15:59 Height 5 ft 10 in 5 ft 10 in Weight: 99.535 kg BMI 31.4 BP 157/88 H Blood Pressure Location Rt brachial Position Sitting Respiration 18 Pulse 80 Pulse Source Monitor Temp 98.5 F Temperature Source Temporal Artery Pulse Oximetry (%) 99 Oxygen Delivery Method room air Intake Is patient in pain?: No Allergies No Known Allergies Allergy (Verified 11/30/24 16:01) Medications ???Medication ???Instructions ???Recorded ???Confirmed ???Type acetaminophen 500 mg tablet 1,000 mg PO Q6H PRN pain 10/07/24 11/30/24 History bcrndas-fqubpdrffnpck-eoio eine 250 1 tab PO Q6H PRN pain 10/07/24 0 11/30/24 History mg-250 mg-65 mg tablet (Excedrin Extra Strength) ibuprofen 800 mg tablet (IBU) 800 mg PO Q8H PRN pain 10/07/24 History oxycodone 5 mg tablet 5 mg PO Q6H PRN pain 3 days #14 11/30/24 Rx tabs turmeric 400 mg capsule mg PO DAILY 11/21/24 11/30/24 Hist ory Central Venous Access Central Venous Access: No Laboratory Tests 10/21/23 11/21/24 08:15 15:27 WBC 4.3 L Hgb 12.4 L Hct 36.3 L Plt Count 122 L Absolute Neuts (auto) 1.8 L Sodium 137 Potassium 3.5 Chloride 105 Carbon Dioxide 24.0 BUN 5 L Creatinine 1.06 Glucose 219 H Calcium 8.5 Phosphorus 2.5 Magnesium 2.0 Total Bilirubin 0.80 AST 34 ALT 34 Alkaline Phosphatase 70 Lactate Dehydrogenase 284 H Total Protein 7.0 Albumin 3.6 Globulin 3.4 Carcinoembryonic Ag 3.7 Exam Physical Exam Const alert, oriented x3 and no apparent distress Coding Level of Care Code Off vis,est,level 3 Exam Problem Focused Diagnoses Metastatic adenocarcinoma C79.9 Malignant neoplasm of ascending colon C18.2 Colon location: ascending Assessment and Plan Assessment and Plan (1) Metastatic adenocarcinoma: Status: Chronic Comment: Involves right para testicular tissue s/p right radical cystectomy orchiectomy. Metastatic colon cancer and treatment with chemotherapy/monoclonal antibodies/immunoth (more content not included)... Normal [facility] MICROSATELLITE INSTABILITY ( MSI) ANALYSIS, TUMOR, FINALon 11-24-2024 Block/ A1 Normal [facility] Comment on above: Performed By: #### M SI #### [facility] (DEFAULT) [address] [place] [address] Method/Limitations: [facility] Comment on above: Result Comment: The IdExam18 MSI Test, for use on the [employer] System, uses formalin-fixed, paraffin embedded (FFPE) tissue sections of tumor, from which nucleic acids are liberated, then analyzed using PCR amplification of seven monomorphic biomarkers (ACVR2A, BTBD7, DIDO1, MRE11, RYR3, SEC31A and SULF2) and subsequent melt-curve analysis. The Idylla? MSI Test reports results as either microsatellite stable (MARY), or microsatellite instability high (MSI-H) or invalid. Idylla? MSI Test is indicated for the qualitative identification of microsatellite instability (MSI), indicative of mismatch repair deficiency. The clinical performance of this device to guide treatment decision for MSI high patients has not been established. This test was developed and its performance determined by the [facility] of the [facility] at [address] [place] [address] under the medical direction of Fred Hernández MD, PhD. It has not been cleared or approved by the U.S. Food and Drug Administrations. Since FDA (U.S. Food and Drug Administration) is not required for clinical use of this test, this laboratory has established and validated the test's accuracy and precision, pursuant to the requirement of CLIA '88. Performed By: #### M SI #### [facility] (DEFAULT) [address] [address] MSI by PCR result MARY. Tumor is microsatellite stable Normal [facility] Comment on above: Performed By: #### M SI #### [facility] (DEFAULT) [address] [address] MSI Interpretation A microsatellite sta ble (MARY) pattern result is obtained by profiling of 7 monomorphic homopolymer loci on the Idylla platform. This is consistent with a proficient mismatch repair (MMR) phenotype. Run and sample controls meet acceptable criteria. Normal [facility] Comment on above: Performed By: #### M SI #### [facility] (DEFAULT) [address] [place] [id number] Reviewed by Angelito Madsen MD, PhD [facility] Comment on above: Performed By: #### M SI #### [facility] (DEFAULT) [address] [place] [address] Tissue Source Right testicle, radi dimple orchiectomy Normal [facility] Comment on above: Performed By: #### M SI #### [facility] (DEFAULT) [address] [place] [address] SURG PATH REQUESTon 11-25-19 Case Report [facility] Comment on above: Result Comment: Surg ical Pathology Report Case: [id number] Authorizing Provider: George Avila MD Collected: 11/24/2024 02:47 PM Ordering Location[facility] Received: 11/24/2024 02:47 PM GARCIA Pathologist: Polo Klein MD, PhD Specimen: SURG PATH, [place] block; Right testicle; Molecular testing Performed By: #### S URGP #### [facility] (DEFAULT) [address] [place] [address] Clinical History [facility] Comment on above: Result Comment: Rece ived is a request from Dr. George Avila at [facility] [address], [address] [place] [address] for molecular testing on block S25690. Performed By: #### S URGP #### [facility] (DEFAULT) [address] [place] [address] Diagnosis Comments HER2/FISH, PD-L1, MM R IHC, COLMOL and STPNGS were requested by George Avila on 11/24/24. Block K41-616-N3 was submitted to histology laboratory for recutting and staining. [facility] Comment on above: Performed By: #### S URGP #### [facility] (DEFAULT) [address] [place] [address] Gross Description [facility] Comment on above: Result Comment: The following material(s) are received from [facility], [address] [place] [address] with an identifying Surgical Pathology Report: One 1 paraffin block (A7) labeled [id number]. Outside materials are returned in 60 days under separate cover with our number recorded on them. Grosser for this case was: Sol Adams Performed By: #### S URGP #### [facility] (DEFAULT) [address] [place] [address] Microscopic Description Normal [facility] Comment on above: Result Comment: A mi croscopic examination was performed. MLH1: Intact PMS2: Intact MSH2: Intact MSH6: Intact *PD-L1 IHC 22C3 pharmDx is a FDA-approved cvir tech diagnostic for pembrolizumab performed on [employer] Link 48. PD-L1 expression in gastric or GEJ adenocarcinoma is determined by manual quantification using Combined Positive Score (CPS), which is the number of PD-L1 staining cells (tumor cells, lymphocytes, macrophages) divided by the total viable tumor cells, multiplied by 100. Positivity is scored in viable tumor cells (partial or complete linear membrane staining at any intensity) and tumor-associated lymphocytes and macrophages (membrane and/or cytoplasmic staining at any intensity). Certain tissue processing factors such as decalcification, formalin fixation time outside an acceptable range (4 to 168 hrs), and prolonged time to fixation can affect PD-L1 staining/expression levels and results should be interpreted with caution in such instances. Additionally, tissue from older (greater than 5 yrs) formalin-fixed paraffin-embedded blocks may lose PD-L1 immunoreactivity. This assay is not validated for decalcified specimens. NOTE: If PD-L1 expression is not detected in an archival (> 42 days old) gastric or GEJ adenocarcinoma specimen, evaluate the feasibility of obtaining an additional tumor biopsy for PD-L1 testing. In the context of clinical trial KN059, a newly obtained biopsy was defined as a specimen obtained up to 6 weeks (42 days) prior to initiation of treatment on Day 1 (Cycle 1) with KEYTRUDA and with no additional anti-cancer treatment having been given after the specimen was obtained. The mismatch repair proteins are evaluated by immunohistochemistry on formalin-fixed, paraffin-embedded tissue, using clone [id number] for MLH1, clone EP51 for PMS2, clone RED2 for MSH2, and clone EP49 for MSH6, and Tissue Kam Genie? Pro Detection Kit, DAB on the [employer] Tissue Kam Genie Advanced Staining System. Convincing nuclear staining in > 1% of tumor cells that is as strong as internal control is considered present/intact. Complete absence of nuclear staining in tumor cells in the presence of nuclear expression in internal control cells is considered absent/lost. Rarely a discrete area of a tumor can show loss of staining with retained nuclear expression in the adjacent tumor cells and internal control cells, which is regarded as subclonal loss and can also be of clinical significance. All immunohistochemistry, in situ hybridization, and histochemical tests were developed by and are performed at the [facility], Clinical Laboratory, [address], [address], [place] [address].. All tests reported here, except those addressing HER2/hakan overexpression as a predictive marker, have not been cleared by or approved by the US Food and Drug Administration (FDA). The laboratory is regulated under CLIA as qualified to perform high-complexity testing. The tests are used for clinical purposes. They should not be regarded as investigational or for research. Performed By: #### S URGP #### [facility] (DEFAULT) [address] [address] Pathologic Diagnosis [facility] Comment on above: Result Comment: Outs akosua Block S25-690 (10/14/24) A. Right testicle, radical orchiectomy: PD-L1 IHC 22C3 pharmDx* expression level: Combined Positive Score (CPS): 0.9; Negative for PD-L1 expression (CPS < 1) Mismatch Repair Protein (MMR) Nuclear Expression by IHC: No MMR loss, consistent with microsatellite stable phenotype Colon cancer mutation panel: KRAS mutation among other changes consistent with colorectal cancer (see NGS report) MSI by PCR: Microsatellite stable HER2 FISH: negative for amplification at 1103 EDT Performed By: #### S URGP #### [facility] (DEFAULT) [address] [address] Professional Interpretation Performed at: [facility] Comment on above: Result Comment: [facility] For Immediate Release to Patient's [facility]? Yes [address] [facility] [address] [place], [place] [address] Performed By: #### S URGP #### [facility] (DEFAULT) [address] [place] [address] Carcinoembryonic Antigenon 0 11-23-2024 CEA 3.7 ng/mL Normal 0.0-4.7 [facility] Comment on above: Result Comment: Nons mokers <3.9 Smokers <5.6 [employer] [employer] Electrochemiluminescence Immunoassay (ECLIA) Values obtained with different assay methods or kits cannot be used interchangeably. Results cannot be interpreted as absolute evidence of the presence or absence of malignant disease. Performed at: [address] [id number] Wharf Attendant: Jonny Aj PhD, Phone: [phone] Performed By: #### L [id number] #### [facility] [address] [place], [place], [address] NATERAon 11-21-2024 NATURA SEE SCANNED REPORT Normal [facility] Comment on above: Performed By: #### L 900.0098 ####[facility] [address] [place], [place], [address] Oncology Visit Reporton 10-30 Oncology Visit Report [facility] [place] [facility] [address] [facility] [place] [address] OFFICE VISIT Date of Service: 11/21/24 1448 MR#: [id number] Acct: [id number] Name: RONALD MELO Rep #: [id number] : 1970 From: George Avila MD Age/Sex: 54/M Location: [facility] Status: Signed HPI Subjective Date of Service 11/21/24 Chief Complaint F/u for R paratesticular mass,adenocarcinoma. History of Present Illness 54y.o.man presented with Blood in the stools. Colonoscopy on 06/08/2023 showed large mass filling in his cecal vault. 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 CEA on 06/19/[address] chest abdomen and pelvis on 06/26/2023 showed 4.6 cm mass at the ileocecal valve, no evidence of metastatic disease. He underwent right hemicolectomy on 07/08/2023. Pathology showed mucinous adeno carcinoma, moderately differentiated, grade 2, tumor invades muscularis propria, margins negative, lymph nodes 1 out of 20 positive, pathologic staging pT2 pN1a. Stage IIIA. He was referred for further management. Port was placed on 08/12/2023. Began adjuvant CapeOx on 08/19/23, cycle 2 given 09/09/2023. C3 given on 09/30/2023. Finished C4 Xeloda on 11/04/2023. He developed right testicular swelling , presented to Dr. Rea with right paratesticular mass. Biopsy done at [facility] showed adenocarcinoma. He had a PET CT scan which was reported as negative. 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 Comes for follow up, to discuss further management. He feels well. [facility] Medical History Loss of hearing Wears glasses Cancer Marijuana use Alcohol use Arthritis Back pain Migraine headache Smoker Leg cramps History of pain when walking CINV (chemotherapy-induced nausea and vomiting) Encounter for chemotherapy management Encounter for education Adenocarcinoma, colon Iron deficiency anemia GERD (gastroesophageal reflux disease) Hyperlipidemia Surgical History Hx of colonoscopy Hx of right hemicolectomy Family History Grandmother No problems noted. Mother Cancer lung Father Myocardial infarction Heart disease Social History Smoking Status: Current some day smoker (patient did not smoke today.) alcohol intake: current alcohol intake frequency: a few times a month Intake Vital Signs 10/14/24 14:28 11/21/24 14:50 11/21/24 14:52 Height 5 ft 10 in 5 ft 10 in 5 ft 10 in Weight: 100.386 kg BMI 31.7 BP 154/85 H Blood Pressure Location Rt brachial Position Sitting Respiration 18 Pulse 73 Pulse Source Monitor Temp 98.6 F Temperature Source Temporal Artery Pulse Oximetry (%) 99 Oxygen Delivery Method room air Intake Is patient in pain?: No Allergies No Known Allergies Allergy (Verified 11/21/24 14:48) Medications ???Medication ???Instructions ???Recorded ???Confirmed ???Type acetaminophen 500 mg tablet 1,000 mg PO Q6H PRN pain 10/07/24 11/21/24 History grqaaes-xeemkegjazmhx-pzhe eine 250 1 tab PO Q6H PRN pain 10/07/24 0 11/21/24 History mg-250 mg-65 mg tablet (Excedrin Extra Strength) ibuprofen 800 mg tablet (IBU) 800 mg PO Q8H PRN pain 10/07/24 History oxycodone 5 mg tablet 5 mg PO Q6H PRN pain 3 days #14 11/21/24 Rx tabs turmeric 400 mg capsule mg PO DAILY 11/21/24 11/21/24 Hist ory Central Venous Access Central Venous Access: No Exam Physical Exam Const alert, oriented x3 and no apparent distress HEENT normocephalic Eyes conjunctivae normal and no scleral icterus Neck supple Lymph Lymphatic: no lymphadenopathy noted Resp normal respiratory effort and clear to auscultation bilaterally Cardio regular rate, regular rhythm, S1 normal heart sound, S2 normal heart sound and no murmurs GI soft to palpation Extremity no clubbing, cyanosis or edema Skin no rashes or lesions noted Neuro oriented x3, CN's II-XII intact bilaterally and moves all extremities Psych mental status grossly normal Coding Level of Care Code Off vis,est,level 4 Exam Problem Focused Diagnoses Metastatic adenocarcinoma C79.9 Malignant neoplasm of ascending colon C18.2 Colon location: ascending Assessment and Plan Assessment and Plan (1) Metastatic adenocarcinoma: Status: Chronic Comment: Involves right para testicular tissue s/p right radical cystectomy orchiectomy. Metastatic colon cancer and treatment with chemother (more content not included)... Normal [facility] Discharge Instructionon 10-01 Discharge Instruction [facility] Medical Records Department [address] [place] [address] Instructions for Home/Discharge Instructions 10/14/24 1837 MR#: [id number] Acct: [id number] Name: RONALD MELO Duncan Rep #: [id number] : 1970 54 From: Viet Rea MD PCP: Dr. Anca Ramirez, DO Status:REG SDC Discharge Instructions Diet Discharge Diet: No restrictions, Light diet - advance as tolerated and Soft diet DC O2, CPAP, BIPAP needs Home O2 Discharge instructions: No Dressing / Incision Discharge Activity: May Not Drive Return to work on:: 11/04/24 Follow Up Care Please Follow Up With: Viet Rea MD When: next for check up Test Results: Test results from this visit will be discussed in further detail at your follow-up appointment, if applicable. Discharge Plan Admission Primary Reason for Your Visit: Right paratesticular mass Attending Provider: iVet Rea Primary Care Provider: Anca Ramirez Instructions Print Language: Faroese Discharge Orders/Prescriptions Prescriptions: New oxycodone 5 mg tablet 5 mg PO Q6H PRN (Reason: pain) 3 Days Qty: 14 0RF Continued acetaminophen 500 mg tablet 1,000 mg PO Q6H PRN (Reason: pain) ibuprofen [IBU] 800 mg tablet 800 mg PO Q8H PRN (Reason: pain) Excedrin Extra Strength 250-250-65 mg tablet 1 tab PO Q6H PRN (Reason: pain) Referrals / Follow Up: Anca Ramirez DO [Primary Care Provider] - Viet Rea MD [Med Staff - Active Staff] - Disposition Disposition (needs filled in before D/C Order can be placed): Home, Self Care 10/14/241837 Viet Rea MD CC: Dr. Anca Ramirez DO Signed Normal [facility] ER (initial)on 10-14-2024 ER (initial) ------ Patient Age/Sex Location Account Attending Physician RONALD MELO 54/M [facility] [place] [id number] Dr. Viet Rea MD Specimen: [id number] Received: 10/18/24 Status: VIC [place] Num: [id number] Spec Type: IMMUNO Subm Dr: Dr. Viet Rea MD PHYSICIAN INSTITUTION [place] [address] SPECIMEN INFORMATION: Tissue Source: A- Right testicle Clinical Info: Right paratesticular mass Specimen Number: [id number] CPT code: 07998,17068o35 METHODOLOGY: Deparaffinized sections of prefer/formalin-fixed tissue or PAP/DQ stained slides are incubated with monoclonal/polyclonal antibodies/oligonucleotide probes. Localization is made via biotin free immunoperoxidase method. Appropriate controls are performed and reacted as expected. Results on target cell population are indicated in the following table: RESULTS: ANTIBODY / CLONE RESULT Block A 7 AE1-3 (AE1/AE3/PCK26) positive CK7 (OV-TL12/30) negative CK8 (49fqwdW06) positive CK20 (KS20.8) positive CDX2 (KAZ7800Z) positive MOC-31 (4561) positive TTF-1 (8G7G3/1) positive Napsin A (Rabbit Polyclonal) negative HepPar (OCh1E5) negative RCC (PN-15) negative CK5-6 (D5 1684) negative P40 (BC28) negative P53 (DO-7) positive (indeterminate pattern) Ki-67 (30-9) positive, high PSAP (PASE/4LJ) negative These tests were developed and their performance characteristics determined by [facility]. They may not have been cleared or approved by the U.S. Food and Drug Administration. The FDA has determined that such clearance or approval is not necessary. The above immunohistochemical/dualIS H markers are ordered and reviewed by the Pathologist. Patient Age/Sex Location Account Attending Physician RONALD MELO 54/M [facility] [place] [id number] Dr. Viet Rea MD INTERPRETATION: A. Right testicular, radical orchiectomy: Metastatic mucinous adenocarcinoma. See comment. 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 ELIDA. 10/19/2024 Signed (signature on file) Dr. Stephon Chacon MD 10/19/24 1450 [facility] Comment on above: Performed By: #### P ER #### [facility] [address] [facility] [place], [address] MR/POSTOP.ANEon 10-14-2024 MR/POSTOP.ANE [facility] Medical Records Department [address] [place] [address] Anesthesia Postop Eval I 10/14/24 1843 MR#: [id number] Acct: [id number] Name: KAMERONRONALD PEÑA Duncan Rep #: [id number] : 1970 54 From: Andreina Meléndez PCP: Dr. Anca Ramirez, DO Status:REG [facility] Y Race: C Location: [place] [address] Anesthesia: Postop Eval I Current Vital Signs Temperature: 97.3 F Pulse Rate: 90 Blood Pressure: 152/92 Respiratory Rate: 22 Pulse Ox: 98 Assessment Airway patent: Yes Spontaneous unlabored respirations: Yes nausea: No Vomiting: No Anesthesia Complication: No Fluid Hydration Crystalloid volume administer (ml): 1,500 Total IV fluid infused: 1,500 Progress Note Anesthesia document: Postop Eval 1 completed: Yes 10/14/241842 Date Andreina Liriano Signature: Date CC: Signed Normal [facility] MR/[id number] 10-14-2024 MR/POSTOPAN2 [facility] Medical Records Department [address] [place] [address] Anesthesia Postop Eval II 10/14/245 MR#: [id number] Acct: [id number] Name: RONALD MELO Rep #: [id number] : 1970 54 From: Cj Martinez MD PCP: Dr. Anca Ramirez, DO Status:DEP SDC Y Race: C Location: [facility] Anesthesia Postop Eval I Sum Postop Eval Completion status Anesthesia document: Postop Eval 1 completed: Yes Anesthesia Postop Eval I Summary Anesthesia Postop Eval I Summary: Anesthesia Postop Eval I: Assessment Summary Airway patent Yes 10/14/24 18:43 MENTAL HEALTH CASE MANAGER.CSIR Spontaneous unlabored Yes 10/14/24 18:43 MENTAL HEALTH CASE MANAGER.CSIR respirations Mental status nausea No 10/14/24 18:43 MENTAL HEALTH CASE MANAGER.CSIR Vomiting No 10/14/24 18:43 MENTAL HEALTH CASE MANAGER.CSIR Anesthesia Postop Eval I: Fluid Summary Crystalloid volume administer 1,500 10/14/24 18:43 MENTAL HEALTH CASE MANAGER.CSIR (ml) Colloids volume administered ( ml) Blood Product volume administered (ml) Total IV fluid infused 1,500 10/14/24 18:43 MENTAL HEALTH CASE MANAGER.CSIR Anesthesia Postop Eval I: Summary Notes Anesthesia Complication No 10/14/24 18:43 MENTAL HEALTH CASE MANAGER.CSIR Anesthesia Complication Comment: Post-operative progress note Anesthesia: Postop Eval II Evaluation Mental status: Awake and Calm Pain Level: 1 nausea: No Vomiting: No Complications Anesthesia Complication: No 10/14/246 Date Cj Martinez MD Cosigner Signature: Date CC: Signed Normal [facility] Operative Reporton 5 Operative Report [facility] Medical Records Department [address] [place] [address] Operative Report 10/14/24 1839 MR#: [id number] Acct: [id number] Name: RONALD MELO Duncan Rep #: [id number] : 1970 54 From: Viet Rea MD PCP: Dr. Anca Ramirez, DO Status:REG [facility] Location: [place] [address] Operative Report (Standard) Operative Information Date of Procedure: 10/14/24 Pre-Operative Diagnosis: Right paratesticular mass Post-Operative Diagnosis: The same Surgery/Procedure Performed: Right radical orchiectomy cleaning professional: No Type of Anesthesia: General RN Documented Start/Stop Times: Operation Date: 10/14/24 15:15 Case Time Into Pre-Op 10/14/24 13:16 Anesthesia Start 10/14/24 17:36 Into Room 10/14/24 17:36 Procedure Start 10/14/24 17:50 Procedure End 10/14/24 18:33 Procedure Start Time: 17:50 Procedure Stop Time: 18:39 Select all DRAINS/GRAFTS/IMPLANTS that apply: None Estimated Blood Loss: 10cc Specimen collected: Yes Description of specimen(s) removed: Right testicular mass and tail of spermatic cord right Description of surgery: Indication this is a 54-year-old male who does have 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 He was then sent to oncology to get a PET scan the PET scan was negative but he then came to me for second opinion and wishes to have the testicle removed I think it is reasonable to remove this testicle and its masses. Tissues were mass even though it might be metastatic it was bothering him. I did tell the patient it is possible removing this mass may not be curative that he still may have metastatic disease but he wishes to remove the mass. We talked about the risk and benefits of the orchiectomy I plan to do a right radical orchiectomy through an inguinal approach Patient was taken back to the operating room after smooth induction of anesthesia he was placed in dorsolithotomy position and then flat on the table the right inguinal area was shaved prepped and draped in usual sterile fashion I made a fairly large generous incision over the right inguinal area dissected down through Sheeba's fascia above to the cord I then opened up the anterior fascia of the cord and then early high ligation of the spermatic cord was accomplished I then dissected the testicle and the peritesticular mass out from the scrotum up into the field it was fairly fixed to the scrotal wall at the very carefully dissect the mass off the scrotal wall probably from the prior surgery that caused a lot of adhesions after dissecting the mass off the scrotal wall without many taken any violations of the skin then I was able to deliver the entire mass into the field we then suture-ligated the spermatic cord I then palpated the cord I can feel some firmness in the cord so I went a little higher and took a higher off the cord and then suture-ligated the cord again and then sent off the 2 specimens the right testicular mass and then a segment of the distal segment spermatic cord separately. We then irrigated we checked for bleeding and cauterize generously to control bleeding we then closed Sheeba's fascia we then closed the skin layer patient's anesthetic reversed and he is taken back to PACU in good condition and he will follow-up in 1 week for a postop check and that after this I will have him see oncology and will review the tissue report.. Surgical Findings: Right testicle mass and talus Singh cord removed Complications Complications: No Admit VTE Documentation VTE Present on Admission: No VTE Mechan Device Prophylaxis: SCD's VTE Pharm Prophylaxis ordered?: No 10/14/241842 Cosigner Signature (if applicable): CC: Dr. Anca Ramirez, ; Dr. Viet Rea MD Signed Normal [facility] Surgery Specimen Level IIIon 10-14-2024 Surgery Specimen Level III Patient Age/Sex Location Account Attending Physician RONALD MELO 54/M [facility] [id number] Dr. Viet Rea MD Specimen: [id number] Received: 10/17/24 Status: VIC [place] Num: [id number] Spec Type: TESTICLE Subm Dr: Dr. Viet Rea MD HEADER OPERATION: Orchiectomy PRE-OP DIAGNOSIS: Right paratesticular mass TISSUE SUBMITTED: A- Right testicle, B- Tail of spermatic cord MICROSCOPIC DIAGNOSIS A. Right testicle, radical orchiectomy: Metastatic mucinous adenocarcinoma. See note and comment. NOTE: Immunohistochemistry ([id number]) supports the above diagnosis and consistent with colonic primary. . B. Tail of spermatic cord, biopsy: Negative for carcinoma. SJ.mr 10/18/2024 COMMENT A. The tumor is present in the paratesticular, periepididymal and spermatic cord adiopse tissue. Involvement of the epididymis, testicle or vas deference is not seen. Please make reference to previous specimen from [facility] ([id number]) right colon, hemicolectomy specimen with diagnosis of invasive moderately differentiated adenocarcinoma, colonic type, invading into but not through the muscularis propria, 1 out of 20 regional lymph nodes is positive for metastasis. Margins are free. Immunohistochemistry for microsatellite instability (mismatch repair of protein) can be performed, please notify the laboratory if needed. This case has been reviewed in consultation with Dr. Nunes who concurs with the above diagnosis. IDC:PW MICROSCOPIC DESCRIPTION Slides are reviewed. Patient Age/Sex Location Account Attending Physician RONALD MELO 54/M [facility] [place] [id number] Dr. Viet Rea MD GROSS DESCRIPTION A. Received in fixative is one container labeled with the patient's name and designated Right testicle. The specimen consists of a radical orchiectomy specimen consisting of testicle with spermatic cord weighing 76.5gm and measuring 10 x 6 x 4cm. Sections reveal a rodriguez solid, mucoidy and focally cystic mass adjacent to the testis and spermatic cord measuring 9 x 3.5 x 2.5cm. Testis measures 4.5 x 3 x 2.5cm. No direct involvement of the testis is noted. Obvious epididymis is identified. Mass does not appear to involve testicular parenchyma. Oracle Solutions Architect sections are submitted in twelve cassettes as follows: 1- spermatic cord resection margin, 2-6- tumor present in spermatic cord, 7-11- tumor adjacent to testicle, 12- uninvolved portion of testicle parenchyma. B. Received in fixative is one container labeled with the patient's name and designated Tail of spermatic cord. The specimen consists of an irregular piece of adipose tissue measuring 3 x 2 x 1cm. A suture is noted at one edge. The entire specimen is submitted in two cassettes. Cassette 1 contains the area close to the suture. 10/17/2024 [id number] ADDENDUM Addendum 2 Entered: 12/07/24-0858 MISMATCH REPAIR (MMR) BY IHC WITH INTERPRETATION REPORT FROM [facility]. INTERPRETATION: No loss of nuclear expression of MMR proteins: Low probability of MSI-H. Antibody Clone Description Results MLH1 M1 Mismatch repair protein Intact nuclear expression MSH2 [id number] Mismatch repair protein Intact nuclear expression MSH6 44 Mismatch repair protein Intact nuclear expression PMS2 [id number] Mismatch repair protein Intact nuclear expression COMMENT: Background non-neoplastic tissue and/or internal control with intact nuclear expression. Please see complete report in e-chart or EMR Addendum Signed (signature on file) Dr. Letty Roach MD 12/08/24 0848 Patient Age/Sex Location Account Attending Physician RONALD MELO 54/M [facility] [id number] Dr. Viet Rea MD ADDENDUM (Continued) Addendum 1 Entered: 12/05/24- (more content not included)... Normal [facility] Comment on above: Performed By: #### P SUIII ####[facility] [address] [place], [address] MR/Erinn 10-11-2024 MR/CAROL [facility] Medical Records Department [address] [place] [address] PAT - Anesthesia 10/11/24 1628 MR#: [id number] Acct: [id number] Name: RONALD MELO Rep #: [id number] : 1970 54 From: Cj Martinez MD PCP: Status:PRE [facility] Y Race: C Location: [facility] Pre-Assessment Diagnosis/Proposed Procedure Planned Operative Procedure(s): RIGHT ORCHIECTOMY RADICAL Anesthesia History 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 When Was Last Pacemaker Check QUESTION #4 FULL TEXT: You/Your Family Experience fever (hyperthermia) with Anesthesia Last Oral Intake Last Oral intake: Last Oral Intake NPO since Meds taken in AM with sips of water? Meds patient instructed to take am of surgery PONV PONV - iron caster: PONV - iron caster Female No 10/07/24 13:54 HX of Motion Sickness No 10/07/24 13:54 HX of N/V After Surgery No 10/07/24 13:54 Non-Smoker No 10/07/24 13:54 Duration of Surgery greater Yes 10/07/24 13:54 than 60 minutes Number of Risk Factors 1 10/07/24 13:54 PONV Score Low Risk 10/07/24 13:54 Height Weight Height Weight: Anesthesia: Height Weight Height 5 ft 10 in 11/04/23 10:03 Respiratory Assessment Respiratory Assessment - iron caster: Respiratory Tract Infection Hx - iron caster Hx Respiratory Tract Infection No 10/07/24 13:54 STOP Sleep Apnea STOP Sleep Apnea - iron caster: STOP Sleep Apnea - iron caster Hx Hypertension No 10/07/24 13:54 Hx Sleep Apnea No 10/07/24 13:54 CPAP BIPAP Do you snore loudly (louder Yes 10/07/24 13:54 than talking or can be heard Do you often feel tired/ No 10/07/24 13:54 fatigued/ sleepy during daytime? Has anyone observed you stop No 10/07/24 13:54 breathing during sleep? STOP Results Negative 10/07/24 13:54 QUESTION #5 FULL TEXT : Do you snore loudly (louder than talking or can be heard through closed doors)? 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 Specify any problems Hx of Preganancy in last 3 N/A 10/07/24 13:54 Months Nurse Filling Out Transfusion DSCHRIBER 10/07/24 13:54 Questions: Date: 10/07/24 10/07/24 13:54 Time: 13:56 10/07/24 13:54 Patient unable to answer at this time (ie. confused, unrespo /Reproduction History /Reproductive History - iron caster: /Reproductive Hx- iron caster Hx Now No 10/07/24 13:54 Gestational Age (in weeks): EDC: Hx Hx Para Hx Section SAB No 10/07/24 13:54 PFS Medical History (Updated 10/07/24 @ 14:03 by Enedina Angeles) Loss of hearing Wears glasses Cancer Marijuana use Alcohol use Arthritis Back pain Migraine headache Smoker Leg cramps History of pain when walking CINV (chemotherapy-induced nausea and vomiting) Encounter for chemotherapy management Encounter for education Adenocarcinoma, colon Iron deficiency anemia GERD (gastroesophageal reflux disease) Hyperlipidemia Home Medications ???Medication ???Instructions ???Recorded ???Last Taken ???Type acetaminophen 500 mg tablet 1,000 mg PO Q6H PRN pain 10/07/24 Unknown History ekwvdab-lkxxnfphwhwza-coli eine 250 1 tab PO Q6H PRN pain 10/07/24 U nknown History mg-250 mg-65 mg tablet (Excedrin Extra Strength) ibuprofen 800 mg tablet (IBU) 800 mg PO Q8H PRN pain 10/07/24 Un known History Allergy/AdvReac Type Severity Reaction Status Date / Time No Known Allergies Allergy Verified 10/07/24 13:50 Family History (Reviewed 11/03/ (more content not included)... Normal [facility] CBC + DIFFon 10-09-2024 Baso # 0.03 x10EE3/UL Normal 0.00 - 0.10 [facility] Comment on above: Performed By: #### 2 [id number] #### [facility],[address] [place] [address] Basophils/100 WBC (Bld) 0.5 % Normal 0.0 - 2.0 [facility] Comment on above: Performed By: #### 2 70250 #### [facility],[address] [place] [address] CBC + DIFF Normal [facility] Comment on above: Result Comment: CBC- COMPLETE BLOOD COUNT Performed By: #### 2 72261 #### [facility],[address] [place] [address] EO # 0.10 x10EE3/UL Normal 0.00 - 0.50 [facility] Comment on above: Performed By: #### 2 88268 #### [facility],[address] [place] [address]368 Eosinophils/100 WBC (Bld) 1.3 % Normal 0.0 - 7.0 [facility] Comment on above: Performed By: #### 2 87144 #### [facility],[address] [place] [address] Erythrocyte distribution width (RBC) [Ratio] 14.0 % Normal 12.0 - 15.6 [facility] Comment on above: Performed By: #### 2 15509 #### [facility],[address] [place], [place] [id number] Hematocrit (Bld) [Volume fraction] 48.9 % Normal 40.0 - 52.0 [facility] Comment on above: Performed By: #### 2 50832 #### [facility],[address] [place] [address]687 Hemoglobin (Bld) [Mass/Vol] 16.7 g/dL Normal 13.0 - 17.5 [facility] Comment on above: Performed By: #### 2 25953 #### [facility],[address] [place] [address] 38427 Lymph # 2.91 x10EE3/UL High 0.80 - 2.80 [facility] Comment on above: Performed By: #### 2 08058 #### [facility],[address] [place] [address] 41203 Lymphocytes/100 WBC (Bld) 39.6 % Normal 20.0 - 45.0 [facility] Comment on above: Performed By: #### 2 50687 #### [facility],[address] [place] [address] MANUAL DIFF N/A Normal [facility] Comment on above: Performed By: #### 2 76166 #### [facility],[address] [place] [address] MCH (RBC) [Entitic mass] 28 pg Normal 27 - 33 [facility] Comment on above: Performed By: #### 2 19375 #### [facility],[address] [place] [address] MCHC 34 X10 3 Normal 32 - 36 [facility] Comment on above: Performed By: #### 2 79967 #### [place] [address] MCV (RBC) [Entitic vol] 82 fL Normal 81 - 98 [facility] Comment on above: Performed By: #### 2 57932 #### [facility],[address] [place] [address] Citrus # 0.85 x10EE3/UL Normal 0.20 - 1.00 [facility] Comment on above: Performed By: #### 2 86651 #### [facility],[address] [place] [address] MONOS % 11.5 % High 0.0 - 10.0 [facility] Comment on above: Performed By: #### 2 76869 #### [place] [id number] Morphology Kirill (Bld) [Interp] REVIEWED Normal [facility] Comment on above: Performed By: #### 2 98696 #### [facility],[address] [place] [address] Neut # 3.46 x10EE3/UL Normal 1.50 - 7.10 [facility] Comment on above: Performed By: #### 2 14672 #### [facility],[address] [place] [address] Neutrophils/100 WBC (Bld) 47.1 % Normal 46.0 - 76.0 [facility] Comment on above: Performed By: #### 2 52908 #### [facility],[address] [place] [address] 21666 PLATELET 241 x10EE3/UL Normal 150 - 450 [facility] Comment on above: Performed By: #### 2 [id number] #### [facility],[address] [place] [address] 63679 Platelet mean volume (Bld) [Entitic vol] 6.1 fL Low 6.4 - 10.5 [facility] Comment on above: Result Comment: AUTO MATED DIFFERENTIAL Performed By: #### 2 [id number] #### [facility],[address] [place] [address] 46659 RBC 5.94 x 10EE6/UL Normal 4.50 - 6.00 [facility] Comment on above: Performed By: #### 2 [id number] #### [facility],[address] [place] [address] 24826 WBC 7.3 x 10EE3/UL Normal 4.5 - 10.8 [facility] Comment on above: Performed By: #### 2 [id number] #### [facility],[address] [place] [address] 07919 ONC.NOTEon 02-26-2024 [place] [address] MedOn: Brief Note Signed:[id number] Name: RONALD MELO Duncan MRUN: [id number] : 1970 Loc: ONCMED Age / Sex: 53/ M Adm Status: REG RCR Adm Date:02/24/24 Room/Bed: Oncology Brief Note - Brief Note Previously reviewed PET scan with radiologist, see amended report. Discussed case with Dr. Orta by phone. 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 May be a candidate for surgical excision. Will arrange referral to surgical oncologist at [place] for further evaluation. May need consultation also with urologic surgeon at that facility. Will see him back after consult in [place]. Patient contacted by phone, who agreed with this plan. 02/26/24 1341 CC: You HORN, Navarro R. Normal [facility] CBC WITH AUTO DIFFon 024 BASO, ABSOLUTE (AUTO) 0.0 10 3/uL Normal 0.0-0.2 [facility] Comment on above: Performed By: #### C MP CEA 1, CBC #### [facility] [address] [place] [address] 60921 Basophils/100 WBC (Bld) 0.3 % Normal 0.0-1.0 [facility] Comment on above: Performed By: #### C CHINO CEA 1, CBC #### [facility] [address] [place] [address] 35612 EOSINOPHILS, ABSOLUTE (AUTO) 0.1 10 3/uL Normal 0.0-0.7 [facility] Comment on above: Performed By: #### C HCINO CEA 1, CBC #### [facility] [address] [place] [address] 83620 Eosinophils/100 WBC (Bld) 1.1 % Normal 0.0-5.0 [facility] Comment on above: Performed By: #### C MP CEA 1, CBC #### [facility] [address] [place] [address] 56335 Erythrocyte distribution width (RBC) [Ratio] 13.7 % Normal 11.5-14.0 [facility] Comment on above: Performed By: #### C MP CEA 1, CBC #### [facility] [place], [place] [address] Hematocrit (Bld) [Volume fraction] 43.9 % Normal 38.7-49.8 [facility] Comment on above: Performed By: #### C MP CEA 1, CBC #### [facility] [address] [place] [address] 22672 Hemoglobin (Bld) [Mass/Vol] 15.2 g/dL Normal 12.9-16.6 [facility] Comment on above: Performed By: #### C CHINO CEA 1, CBC #### [facility] [address] [place] [address] 15224 LYMPHOCYTES, ABSOLUTE (AUTO) 2.2 10 3/uL Normal 1.0-3.5 [facility] Comment on above: Performed By: #### C CHINO CEA 1, CBC #### [facility] [address] [place] [address] 25721 Lymphocytes/100 WBC (Bld) 33.7 % Normal 24.0-44.0 [facility] Comment on above: Performed By: #### C CHINO CEA 1, CBC #### [facility] [address] [place] [address] 73242 MCH (RBC) [Entitic mass] 28.4 pg Normal 27.0-31.0 [facility] Comment on above: Performed By: #### C CHINO CEA 1, CBC #### [facility] [address] [place] [address]2011 MCHC (RBC) [Mass/Vol] 34.6 g/dL Normal 32.0-36.0 [facility] Comment on above: Performed By: #### C CHINO CEA 1, CBC #### [facility] [address] [place] [address] 13521 MCV (RBC) [Entitic vol] 82.2 fL Normal 78.0-100.0 [facility] Comment on above: Performed By: #### C CHINO CEA 1, CBC #### [facility] [address] [place] [address] 37740 MONOCYTES, ABSOLUTE (AUTO) 0.7 10 3/uL Normal 0.2-0.8 [facility] Comment on above: Performed By: #### C CHINO CEA 1, CBC #### [facility] [address] [place] [address] 87486 Monocytes/100 WBC (Bld) 10.5 % High 1.7-9.3 [facility] Comment on above: Performed By: #### C CHINO CEA 1, CBC #### [facility] [address] NEUTROPHILS, ABSOLUTE (AUTO) 3.5 10 3/uL Normal 1.5-6.7 [facility] Comment on above: Performed By: #### C MP CEA 1, CBC #### [facility] [address] [place] [address] 37884 Neutrophils/100 WBC (Bld) 54.4 % Normal 36.0-66.0 [facility] Comment on above: Performed By: #### C MP CEA 1, CBC #### [facility] [address] [place] [address] 46566 PLATELET COUNT 218 10 3/uL Normal 150-450 [facility] Comment on above: Performed By: #### C MP CEA 1, CBC #### [facility] [address] [place] [address] 36908 Platelet mean volume (Bld) [Entitic vol] 5.6 fL Low 6.0-9.5 [facility] Comment on above: Performed By: #### C MP CEA 1, CBC #### [facility] [address] [place] [address] 60526 RED BLOOD COUNT 5.34 x10 6/uL Normal 4.38-5.71 [facility] Comment on above: Performed By: #### C MP CEA 1, CBC #### [facility] [address] [place] [address] 13369 WHITE BLOOD COUNT 6.4 10 3/uL Normal 4.0-10.5 [facility] Comment on above: Performed By: #### C MP CEA 1, CBC #### [facility] [address] [place] [address] 10511 COMPREHENSIVE METABOLIC PANE Hany 02-24-2024 Albumin [Mass/Vol] 4.6 g/dL Normal 3.9-5.0 [facility] Comment on above: Performed By: #### C MP, CEA 1, CBC #### [facility] [address] [place] [address] 80490 Albumin/Globulin [Mass ratio] 1.4 {ratio} Normal 1.1-1.8 [facility] Comment on above: Performed By: #### C MP CEA 1, CBC #### [facility] [address] [place] [address] 57193 ALP [Catalytic activity/Vol] 56 U/L Normal 43-122 [facility] Comment on above: Performed By: #### C CHINO CEA 1, CBC #### [facility] [address] [place], [place] [address] ALT [Catalytic activity/Vol] 63 U/L High 7-56 [facility] Comment on above: Performed By: #### C CHINO CEA 1, CBC #### [facility] [address] [place] [address] 32495 Anion gap [Moles/Vol] 16 mmol/L Normal 9-18 [facility] Comment on above: Performed By: #### C CHINO CEA 1, CBC #### [facility] [address] [place] [address] 62532 AST [Catalytic activity/Vol] 46 U/L Normal 14-50 [facility] Comment on above: Performed By: #### C CHINO CEA 1, CBC #### [facility] [address] [place] [address] 87145 Bilirubin [Mass/Vol] 1.0 mg/dL Normal 0.2-1.3 [facility] Comment on above: Performed By: #### C CHINO CEA 1, CBC #### [facility] [address] [place] [address] 74957 BUN/CREATININE RATIO 8.8 Ratio Normal 5.0-42.0 [facility] Comment on above: Performed By: #### C CHINO CEA 1, CBC #### [facility] [address] [place] [address] 29544 Calcium [Mass/Vol] 9.0 mg/dL Normal 8.4-10.2 [facility] Comment on above: Performed By: #### C CHINO CEA 1, CBC #### [facility] [address] [place] [address] 03684 Chloride [Moles/Vol] 98 mmol/L Normal 98-107 [facility] Comment on above: Performed By: #### C CHINO CEA 1, CBC #### [facility] [address] [place] [address] 91378 CO2 [Moles/Vol] 23 mmol/L Normal 22-31 [facility] Comment on above: Performed By: #### C CHINO CEA 1, CBC #### [facility] [address] [place], [place] [address] Creatinine [Mass/Vol] 0.80 mg/dL Normal 0.80-1.30 [facility] Comment on above: Performed By: #### C CHINO CEA 1, CBC #### [facility] [address] [place], [place] [address] ESTIMATED CREAT CLEARANCE 108.99 Normal [facility] Comment on above: Result Comment: COCK CROFT-GAULT FORMULA 1973 Performed By: #### C CHINO CEA 1, CBC #### [facility] [address] [place], [place] [address] ESTIMATED GLOMERULAR FILT RATE 105 mL/min Normal [facility] Comment on above: Performed By: #### C CHINO CEA 1, CBC #### [facility] [address] [place] [address] 86588 Globulin (S) [Mass/Vol] 3.4 g/dL Normal [facility] Comment on above: Performed By: #### C CHINO CEA 1, CBC #### [facility] [address] [place], [place] [address] Glucose [Mass/Vol] 128 mg/dL High 70-99 [facility] Comment on above: Result Comment: The glucose range is based on recommendations from the [place] for fasting blood glucose range. Performed By: #### C CHINO CEA 1, CBC #### [facility] [address] [place], [place] [address] Potassium [Moles/Vol] 3.5 mmol/L Low 3.6-5.0 [facility] Comment on above: Performed By: #### C CHINO CEA 1, CBC #### [facility] [address] [place], [place] [address] Protein [Mass/Vol] 8.0 g/dL Normal 6.3-8.2 [facility] Comment on above: Performed By: #### C CHINO CEA 1, CBC #### [facility] [address] [place], [place] [address] Sodium [Moles/Vol] 133 mmol/L Low 137-145 [facility] Comment on above: Performed By: #### C MP, CEA 1, CBC #### [facility] [address] [place], [place] [address] Urea nitrogen [Mass/Vol] 7 mg/dL Normal 7-21 [facility] Comment on above: Performed By: #### C MP, CEA 1, CBC #### [facility] [address] [place], [place] [address] AGE,PATIENT 53 Years Normal [facility] Comment on above: Performed By: #### C MP, CEA 1, CBC #### [facility] [address] [place], [place] [address] MedOnc/Hematology Consult H& Krish 02-24-2024 MedOnc/Hematology Consult H&P [address] [id number] MedOnc/Hematology Consult H P Signed with Addenda:[id number] Name: RONALD MELO MRUN: [id number] : 1970 Loc: ONCMED Age / Sex: 53/ M Adm Status: REG RCR Adm Date:02/24/24 Room/Bed: ADDENDUM-------- -- Baseline labs obtained today - CBC and CMP normal. CEA 3.8. 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 He presented with rectal bleeding. Colonoscopy showed large mass filling cecal vault, biopsy positive for tubulovillous adenoma with intramucosal carcinoma and suspicion for invasive adenocarcinoma. Preoperative imaging showed 4.6 cm mass at ileocecal valve but no metastatic disease. CEA 3.3. Underwent right hemicolectomy on 07/08/2023 at [facility] in [place]. Final pathology showed mucinous adenocarcinoma, moderately differentiated (grade 2), tumor invading muscularis propria. Margins were negative. 1 out of 22 positive lymph nodes. Pathologic stage T2 N1a, stage IIIa. He was subsequently seen by medical oncologist in [place], and started adjuvant chemotherapy with Cape ox regimen starting 08/19/2023. He completed 4 cycles of chemotherapy, last seen there on 11/04/2023. He subsequently presented to urologist with swelling in his right scrotum/testicle. He was thought to have a hydrocele, for which he underwent surgical excis ion. However, was found to have an intrascrotal mass, biopsy performed showing mucinous adenocarcinoma, consistent with history of colon cancer. He did undergo a PET scan, and was referred here for further evaluation. He has continued to have discomfort in his right inguinal region and scrotum, affecting ability to perform work-related activities. He denied any severe pain. Has been taking frequent doses of ibuprofen, without significant improvement, and has developed abdominal discomfort from this. Denied any cough, shortness of breath, chest or abdominal pain, or change in bowel habits. No urinary difficulties. No rectal bleeding black tarry stools. Past Medical History - Available ancillary/Nurse notes reviewed History reviewed and agreed with:: Yes Past EENT history: Negative Past EENT surgeries/treatments: Negative Past neurological history: Negative Past neurological surgeries/treatments: Negative Past cardiovascular history: Negative Past cardiovascular surgeries/treatments:: Negative Past respiratory history: Negative Past respiratory surgeries/treatments:: Pneumonectomy Past gastrointestinal history: Cancer Type of GI cancer:: Colorectal Past gastrointestinal surgeries/treatments: Colon Resection Additional surgical history details: 08/22 diagnosed with stage 3 colon ca, treated with 4 cycles of Cape/Ox. not has mets to testicle Past musculoskeletal history: Negative Past musculoskeletal surgeries/treatments: Negative Past endocrine history: Negative Past endocrine surgeries/treatments: Negative General Reproductive History: Negative Past male reproductive surgeries/treatments:: Negative Hemotologic: Negative Psychiatric: Negative Psychiatric Treatments: Negative Other medical history:: Negative Other surgeries/treatments: Chemotherapy Other surgeries/treatments details: 11/21 completed 4 cycles of Cape/Ox for colon CA Past Anesthesia Complications: Denies - Social History Alcohol use- current or past use: No Substance use - current or past: No Allergies and Home Medications Allergies Allergy/AdvReac Type Severity Reaction Status Date / Time No Known Allergies Allergy Verified 02/24/24 10:57 Home Medications Medication Instructions Recorded Confirmed Last Taken Azelastine HCl 137 mcg NS BID 02/23/24 02/24/24 Unknown Pantoprazole Sodium [Protonix] 20 mg PO DAILY 02/24/24 02/24/24 Unknown Radiographs PET/CT scan performed on 02/20/2024. Indication for exam was labeled as testicular cancer, and radiologist presumed that he had undergone left orchiectomy. No evidence of metastatic disease to lungs, liver, or retroperitoneal nodes. Reviewed scan with radiologist, and corrected history about cancer. He does have abnormal uptake and mass in right inguinal canal, unable to visualize right testis. This is consistent with palpable mass on physical exam. No evidence of other metastatic disease. Review of Systems Comment: All 10 Systems Reviewed Negative Unless Otherwise Stated in the HPI Constitutional: denies: Fever, Unexpected Weight Loss, Night Sweats Respiratory: (more content not included)... Normal [facility] PET, SKULL BASE TO MID THIGH on 02-22-2024 PET, SKULL BASE TO MID THIGH [facility] [address] [place], [place] [id number] Diagnostic Imaging Report : [id number] Signed with Addenda Name: RONALD MELO MRUN: [id number] : 1970 Loc: PET Age / Sex: 53 / M ADM Status: DEP CLI ADM Date: 02/20/24 Room/Bed: Ordering Physician: Navarro Orta MD Procedure: PET, SKULL BASE TO MID THIGH Order Number(s): [id number] Ordered Date: 02/20/24 Ordered Time: ADDENDUM-------- -- ADDENDUM: Oncologist review this case with me with further clinical information. The patient has biopsy proven malignancy at the right testicle and has not undergone surgery. Therefore, the soft tissue asymmetry at the right scrotum measuring 5.0 x 3.7 cm which extends into the spermatic cord is felt to represent malignancy and likely engulfs the right testicle. There is increased uptake with maximum SUV of 3.7. However there is no evidence for distant metastasis. There is soft tissue density inferiorly left scrotum likely left testicle measuring 2.7 x 1.9 cm. Addendum Dictated By: Antonio Mccullough MD Addendum Signed By:Antonio Mccullough MD Signed Date/Time: 02/25/24 0823 Dictated Date/Time: 02/25/24 0816 Transcribed Date/Time: 02/25/24 0820 EXAMINATION: WHOLE BODY PET/CT 02/20/2024 TECHNIQUE: Following IV injection of 14.38 mCi of F-18 FDG, PET tumor imaging was acquired from the base of the skull to the mid thighs. Computed tomography was used for purposes of attenuation correction and anatomic localization. Fusion imaging was utilized for interpretation. Uptake time 60 to 90 min. Glucose level 177 mg/dl. COMPARISON: None HISTORY: Malignant neoplasm of unspecified testis FINDINGS: HEAD/NECK: No suspicious uptake in the visualized head neck. CHEST: Expected uptake is seen in heart mediastinum. No suspicious uptake in the chest. ABDOMEN/PELVIS: Expected uptake liver, spleen, kidneys and collecting system and bowel. Patient status post left orchiectomy. No suspicious inguinal retroperitoneal adenopathy evident. Foci of uptake in the retroperitoneum relate to the ureters. BONES/SOFT TISSUE: No suspicious skeletal uptake evident. INCIDENTAL CT FINDINGS: Anastomotic suture seen right abdomen. IMPRESSION: Status post left orchiectomy. No evidence of residual, recurrent or metastatic disease on this exam. Dictated By: Antonio Mccullough MD Dictated Date/Time: 02/22/24 1230 Signed By: Antonio Mccullough MD Signed Date/Time: 02/22/24 1241 Transcribed Date/Time: 02/22/24 1238 Normal [facility] Basic Metabolic Panelon 05- Anion gap [Moles/Vol] 15.7 mmol/L Normal 8.0-16.0 [facility] Comment on above: Performed By: #### B MP #### [facility] [address] [place] [address] Calcium [Mass/Vol] 8.5 mg/dL Normal 8.2-10.[address] [facility] Comment on above: Performed By: #### B MP #### [facility] [address] [place] [address] Chloride [Moles/Vol] 100 mmol/L Normal 94-110 [facility] Comment on above: Performed By: #### B MP #### [facility] [address] [place] [address] CO2 [Moles/Vol] 26 mmol/L Normal 21-34 [facility] Comment on above: Performed By: #### B MP #### [facility] [address] [place] [address] Creatinine [Mass/Vol] 0.71 mg/dL Normal 0.50-1.17 [facility] Comment on above: Performed By: #### B MP #### [facility] [address] [place] [address] EGFR Other Races >60 Normal >60 [facility] Comment on above: Performed By: #### B MP #### [facility] [address] [place] [address] GFR/1.73 sq M.predicted among blacks MDRD (S/P/Bld) [Vol rate/Area] mL/min/{1.73_m2} Normal >60 [facility] Comment on above: Result Comment: Information Technology Project Manager samia Kidney Disease less than 60 mL/min/1.73 m2 Kidney Failure less than 15 mL/min/1.73 m2 Average estimated GFR by age: 50-59 years 93 mL/min/1.73 m2 Performed By: #### B MP #### [facility] [address] [place] [address] Glucose [Mass/Vol] 215 mg/dL High 65-[address] [facility] Comment on above: Performed By: #### B MP #### [facility] [address] [place] [address] Potassium [Moles/Vol] 3.7 mmol/L Normal 3.3-5.1 [facility] Comment on above: Performed By: #### B MP #### [address] [place] [place] [address] Sodium [Moles/Vol] 138 mmol/L Normal 132-[address] [facility] Comment on above: Performed By: #### B MP #### [address] [address] Urea nitrogen [Mass/Vol] 7.0 mg/dL Normal 3.2-26.9 [facility] Comment on above: Performed By: #### B MP #### [address] [address] Urea nitrogen/Creatinine [Mass ratio] 10 mg/mg Normal 6-20 [facility] Comment on above: Performed By: #### B MP #### [place] [id number] CBC w/Auto Differentialon Basophils Abs. # 0.03 K/uL Normal 0.00-0.10 [facility] Comment on above: Performed By: #### C BCS #### [address] [place] [address] Basophils/100 WBC (Bld) 0.6 % Normal 0.2-1.0 [facility] Comment on above: Performed By: #### C BCS #### [address] [place] [address] Eosinophils (Bld) [#/Vol] 0.10 10*3/uL Normal 0.00-0.20 [facility] Comment on above: Performed By: #### C BCS #### [address] [address] Eosinophils/100 WBC (Bld) 2.4 % Normal 0.9-2.9 [facility] Comment on above: Performed By: #### C BCS #### [address] [place] [address] Erythrocyte distribution width (RBC) [Ratio] 13.0 % Normal 11.5-14.5 [facility] Comment on above: Performed By: #### C BCS #### [address] [address] Hematocrit (Bld) [Volume fraction] 44.3 % Normal 36.7-50.6 [facility] Comment on above: Performed By: #### C BCS #### [address] [address] Hemoglobin (Bld) [Mass/Vol] 15.0 g/dL Normal 12.4-17.3 [facility] Comment on above: Performed By: #### C BCS #### [address] [place] [address] Imm Grans % 0.20 % Normal 0.00-1.00 [facility] Comment on above: Performed By: #### C BCS #### [address] [address] Imm Grans Absolute # 0.01 K/uL Normal 0.00-0.10 [facility] Comment on above: Performed By: #### C BCS #### [address] [address] Lymphocytes (Bld) [#/Vol] 1.80 10*3/uL Normal 1.30-2.90 [facility] Comment on above: Performed By: #### C BCS #### [address] [address] Lymphocytes/100 WBC (Bld) 34.2 % Normal 17.0-45.5 [facility] Comment on above: Performed By: #### C BCS #### [address] [place] [address] MCH (RBC) [Entitic mass] 28.3 pg Normal 27.0-31.0 [facility] Comment on above: Performed By: #### C BCS #### [address] [place] [address] MCHC (RBC) [Mass/Vol] 33.9 g/dL Normal 33.0-37.0 [facility] Comment on above: Performed By: #### C BCS #### [address] [place] [address] MCV (RBC) [Entitic vol] 83.6 fL Normal 80.0-94.0 [facility] Comment on above: Performed By: #### C BCS #### [address] [place] [address] Monocytes (Bld) [#/Vol] 0.60 10*3/uL Normal 0.30-0.80 [facility] Comment on above: Performed By: #### C BCS #### [address] [place] [address] Monocytes/100 WBC (Bld) 12.0 % High 5.5-11.7 [facility] Comment on above: Performed By: #### C BCS #### [address] [place] [address] Neutrophils Abs. # 2.69 K/uL Normal 2.20-4.[address] [facility] Comment on above: Performed By: #### C BCS #### [address] [place] [address] Neutrophils/100 WBC (Bld) 50.6 % Normal 43.0-65.0 [facility] Comment on above: Performed By: #### C BCS #### [address] [place] [address] Platelet mean volume (Bld) [Entitic vol] 7.7 fL Normal 7.4-10.4 [facility] Comment on above: Performed By: #### C BCS #### [address] [place] [address] Platelets (Bld) [#/Vol] 173 10*3/uL Normal 148-402 [facility] Comment on above: Performed By: #### C BCS #### [address] [place] [address] RBC (Bld) [#/Vol] 5.30 10*6/uL Normal 4.13-5.69 [facility] Comment on above: Performed By: #### C BCS #### [address] [place] [address] WBC (Bld) [#/Vol] 5.3 10*3/uL Normal 3.6-10.[address] [facility] Comment on above: Performed By: #### C BCS #### [address] [address] CHEST APon 12-23-2023 CHEST AP EXAMINATION: ONE XRAY VIEW OF THE CHEST 12/23/2023 10:38 am COMPARISON: None. HISTORY: ORDERING SYSTEM PROVIDED HISTORY: POST MEDIPORT REMOVAL FINDINGS: The lungs are without acute focal process. There is no effusion or pneumothorax. The cardiomediastinal silhouette is without acute process. The osseous structures are without acute process. IMPRESSION: No acute process. Normal [facility] Prostate Specific Agon 12-10 Prostate specific Ag [Mass/Vol] 0.5 ng/mL Normal 0.0-4.0 [facility] Comment on above: Result Comment: Trent GOMEZ methodology. According to the [employer], Serum PSA should decrease and remain at undetectable levels after radical prostatectomy. The AUA defines biochemical recurrence as an initial PSA value 0.2 ng/mL or greater followed by a subsequent confirmatory PSA value 0.2 ng/mL or greater. Values obtained with different assay methods or kits cannot be used interchangeably. Results cannot be interpreted as absolute evidence of the presence or absence of malignant disease. Performed at: [id number] [id number] Wharf Attendant: Jonny Aj PhD, Phone: [phone] Performed By: #### P SA #### [address] [address] EMERGENCY REPORTon 4 EMERGENCY REPORT [facility] EMERGENCY ROOM REPORT NAME ACCOUNT SEX AGE ADMIT DISCHARGE PT MED. RECORD# NUMBER DATE DATE TYPE KAMERON [id number] Alie 53 11/30/23 11/30/23 3 RONALD Duncan [id number] ROOM: ER DATE OF : 1970 DICTATING PHYSICIAN: David Ramirez CHIEF COMPLAINT: Scrotal swelling. HISTORY OF PRESENT ILLNESS: The patient states on October, he noticed a little bit of right scrotal swelling. He has developed more swelling over the past couple of days. He is not really complaining of any pain. No urinary symptoms, frequency or urgency. No warmth. No injury to that area. He has not had anything like this in the past. PAST MEDICAL HISTORY: Significant for colon cancer. He is being treated for this with chemotherapy, which he just completed recently. He does have a history of anemia. PAST SURGICAL HISTORY: Previous surgeries include colon mass and resection in July of last year. SOCIAL HISTORY: The patient is and lives at home, accompanied here with his . He does not smoke. He does use oral tobacco. He does not drink alcohol. REVIEW OF SYSTEMS: No problems in the past. PHYSICAL EXAMINATION: GENERAL: This is a 53-year-old, pleasant male who is alert and appropriate. He does not appear toxic. SKIN: His skin is warm and dry and slightly pale-appearing. HEENT: Examination is normal. NECK: Neck is supple. LUNGS: Lungs are clear. ABDOMEN: Abdomen is generally mildly obese but soft and nontender. : Scrotal examination does reveal right scrotal swelling diffusely which looks and feels as though this is probably a hydrocele. I did not feel any other lumps or masses. EXTREMITIES: He moves his extremities appropriately with good peripheral pulses and good capillary refill. VITAL SIGNS: Temperature is 98.9, pulse 91, respirations 16, and blood pressure 129/81. DIAGNOSTIC DATA: I proceeded to get a scrotal ultrasound, and this was read by Radiology as showing multiple masses which appear to be arising from the right scrotal wall. The cause of this is not clear, but with known colon cancer he would need evaluation to rule out metastasis. He does have a moderate right-sided hydrocele consistent with his examination. Page 1 of 2 RONALD MELO Emergency Room Report RONALD MELO : 1970 EMERGENCY DEPARTMENT COURSE AND TREATMENT: I did explain this to him and told him that he would need urology evaluation for this. He was given Dr. Rea and Dr. Woodward numbers to follow up with them or follow up with Dr. Cabral for a referral. DIAGNOSIS: Hydrocele with scrotal nodules or masses. Dictated By: David Ramirez MD 11/30/23 15:13 JOB #: [id number] Transcribed By: dane 11/30/23 16:50 Electronically signed by: HINE Ramirez M.D. 12/05/23 07:03 Page 2 of 2 RONALD MELO Emergency Room Report Normal [facility] SCROTALon 11-30-2023 [place] [address] Patient: KAMERON RONALD Song. Phone#: : 1970 Age: 53 Gender: M Pt. Type: ER Account: [id number] Location: [facility] Ordering: DAVID RAMIREZ Exam Date: 11/30/2023/13:04 Family Phys: YOANDY CABRAL Charge Code: 608571 Physician: Traill Order #: [id number] Dose#: PROCEDURE: SCROTAL ULTRASOUND COMPARISON: [facility], CT, CHEST/ABDOMEN/PELVIS W CON, 06/26/2023, 9:19. INDICATIONS: Swelling. TECHNIQUE: The scrotum was evaluated with elise scale and color duplex Doppler sonography. FINDINGS: TESTES: Normal echotexture, size, and flow. Right testicle measures 4.1 x 2.5 x 2.4 cm. Left testicle measures 3.9 x 1.5 x 2.5 cm. EPIDIDYMIS: Right epididymis measures 1.3 x 1.0 x 1.0 cm and contains a small cyst. Left epididymis measures 0.7 x 0.5 x 1.1 cm. OTHER: Right scrotal wall are multiple polypoid masses. The masses are outlined by a moderate-sized hydrocele. One of the masses appears to have a exophytic cystic component. The masses measure 1.4 x 1.1 x 1.2 cm, 0.9 x 1.0 x 0.8 cm, 1.2 x 0.9 x 1.7 cm, 0.9 x 0.6 x 1.1 cm and 1.5 x 0.9 x 1.6 cm. Blood flow is seen within several of the masses. CONCLUSION: 1. Multiple masses which appear to be arising from the right scrotal wall. Given the provided history of colon cancer this is concerning for metastatic disease however metastasis to the scrotum are very rare. Recommend urology evaluation. 2. Right moderate-sized hydrocele 3. Unremarkable appearance of the testicles. Dictated by: Paula Cary MD on 11/30/2023 at 14:12 Approved by: Paula Cary MD on 11/30/2023 at 14:22 Normal [facility] Absolute lymphocyte countOrd ered By: George Avila on 11-04-2023 Lymphocytes Auto (Unsp spec) [#/Vol] 1.80 10*3/uL 0.83-4.51 [facility] Automated lymphocyte count a s percentage of total leukocytesOrdered By: George Avila on 11-04-2023 Lymphocytes/100 WBC Auto (Unsp spec) 31.1 % 19-41 [facility] Determination of erythrocyte mean corpuscular volume (MCV)Ordered By: George Avila on 11-04-2023 MCV (RBC) [Entitic vol] 81.5 fL 80-94 [facility] Erythrocyte distribution wid th standard deviationOrdered By: George Avila on 11-04-2023 Erythrocyte distribution width (RBC) [Ratio] 24.4 % High 11.6-14.6 [facility] [employer] mix RAST testO rdered By: George Avila on 11-04-2023 Albumin [Mass/Vol] 3.8 g/dL 3.2-5.[address] [facility] Anion gap [Moles/Vol] 5 mmol/L 5-15 [facility] AST [Catalytic activity/Vol] 42 U/L High 15-37 [facility] Hematocrit Auto (Bld) [Volum e fraction]Ordered By: George Avila on 11-04-2023 Hematocrit (Bld) [Volume fraction] 39.6 % Low 40-54 [facility] Immature granulocytes/100 WB C Auto (Bld)Ordered By: George Avila on 11-04-2023 Immature granulocytes/100 WBC (Bld) 0.300 % 0.0-0.9 [facility] Comment on above: IG% - Immature Granu locytes (promyelocytes, myelocytes and metamyelocytes) > 1% indicates that a LEFT SHIFT is Present. Laboratory - Chemistry and C hemistry - challengeOrdered By: George Avila on 11-04-2023 Albumin/Globulin [Mass ratio] 1.1 {ratio} 0.9-2.4 [facility] ALP [Catalytic activity/Vol] 77 U/L 45-117 [facility] ALT [Catalytic activity/Vol] 49 U/L 16-61 [facility] CO2 [Moles/Vol] 27.0 mmol/L 21.0-32.0 [facility] Globulin (S) [Mass/Vol] 3.6 g/dL 2.2-4.2 [facility] Urea nitrogen/Creatinine [Mass ratio] 12.7 mg/mg 10-20 [facility] Laboratory - Hematology and Cell countsOrdered By: George Avila on 11-04-2023 Erythrocyte distribution width (RBC) [Entitic vol] 70.4 fL High 35.1-43.9 [facility] MCH (RBC) [Entitic mass] 27.2 pg 27.0-32.0 [facility] MCHC (RBC) [Mass/Vol] 33.3 g/dL 32-36 [facility] Nucleated RBC/100 WBC (Bld) [Ratio] 0 % 0-5 [facility] Platelet mean volume (Bld) [Entitic vol] 7.9 fL 6.2-12.0 [facility] Platelets (Bld) [#/Vol] 113 10*3/uL Low 150-450 [facility] No Panel InformationOrdered By: George Avila on 11-04-2023 Estimated Creatinine Clearance Calc 116.02 ml/min [facility] Estimated GFR (MDRD) Amer 118 mL/min >60 [facility] Comment on above: GFR Calc Estimated GFR (MDRD) Non-Af Amer 98 mL/min >60 [facility] Comment on above: Non- GFR Calc RBC Auto (Bld) [#/Vol]Ordere d By: George Avila on 11-04-2023 RBC (Bld) [#/Vol] 4.86 10*6/uL 4.6-6.2 [facility] Serum creatinine measurement (mass/volume)Ordered By: George Avila on 11-04-2023 Creatinine [Mass/Vol] 0.86 mg/dL 0.70-1.30 [facility] Comment on above: The validity of the calculated GFR & GFRAA in patients over 70 years has not been determined. Clinical correlation is essential. Serum or plasma calcium annie urement (mass/volume)Ordered By: George Avila on 11-04-2023 Calcium [Mass/Vol] 9.3 mg/dL 8.5-10.[address] [facility] Serum or plasma urea nitroge n measurement (mass/volume)Ordered By: George Avila on 11-04-2023 Urea nitrogen [Mass/Vol] 11 mg/dL 7-18 [facility] Trichomonas screening testOr dered By: George Avila on 11-04-2023 Basophils/100 WBC (Bld) 0.5 % 0-1 [facility] Bilirubin [Mass/Vol] 0.70 mg/dL 0.20-1.00 [facility] Comment on above: For patients on eltr ombopag therapy, use of Dimension Wildrose TBIL is not recommended. Chloride [Moles/Vol] 104 mmol/L 98-107 [facility] Eosinophils/100 WBC (Bld) 0.9 % 0-5 [facility] Glucose [Mass/Vol] 204 mg/dL High 74-[address] [facility] Comment on above: Glucose result great er than or equal to 200 mg/dLsuggests DIABETES MELLITUS per A.D.A. criteria. Hemoglobin (Bld) [Mass/Vol] 13.2 g/dL 13.0-16.5 [facility] LDH [Catalytic activity/Vol] 266 U/L High 87-241 [facility] Monocytes/100 WBC (Bld) 20.6 % High 0-10 [facility] Neutrophils (Bld) [#/Vol] 2.7 10*3/uL 2.0-7.7 [facility] Neutrophils/100 WBC (Bld) 46.6 % Low 47-70 [facility] Potassium [Moles/Vol] 4.3 mmol/L 3.5-5.1 [facility] Protein [Mass/Vol] 7.4 g/dL 6.4-8.[address] [facility] Sodium [Moles/Vol] 136 mmol/L 136-[address] [facility] WBC (Bld) [#/Vol] 5.8 10*3/uL 4.4-11.[address] [facility] Laboratory - Chemistry and C hemistry - challengeOrdered By: George Avila on 10-21-2023 Magnesium [Mass/Vol] 2.0 mg/dL 1.6-2.6 [facility] Laboratory - Hematology and Cell countsOrdered By: George Avila on 10-21-2023 Anisocytosis Ql (Bld) 2+ [facility] Ovalocyte detectionOrdered B y: George Avila on 10-21-2023 Ovalocytes LM Ql (Bld) 1+ [facility] COVID-19 virus antigen assay Ordered By: George Avila on 10-14-2023 SARS-CoV-2 (COVID-19) Ag IA.rapid Ql (Resp) [facility] Blood manual differential co mment interpretation (narrative result)Ordered By: George Avila on 09-30-2023 Manual differential comment Kirill (Bld) [Interp] SCANNED [facility] Folate [Mass/volume] in Seru m or PlasmaOrdered By: George Avila on 08-19-2023 Folate [Mass/Vol] 16.60 ng/mL 3.1-55.[address] [facility] Iron measurement (mass/mass) Ordered By: George Avila on 08-19-2023 Iron (Unsp spec) [Mass/Mass] 16 ug/dL Low 65-175 [facility] Laboratory - Chemistry and C hemistry - challengeOrdered By: George Avila on 08-19-2023 Cobalamin (Vitamin B12) [Mass/Vol] 360 pg/mL 211-911 [facility] No Panel InformationOrdered By: George Avila on 08-19-2023 Total Iron Binding Capacity 362 ug/dL 250-450 [facility] Serum or plasma ferritin raad surement (mass/volume)Ordered By: George Avila on 08-19-2023 Ferritin [Mass/Vol] 24 ng/mL Low 26-388 [facility] Serum or plasma iron saturat ion measurement (mass fraction)Ordered By: George Avila on 08-19-2023 Iron saturation [Mass fraction] 4.4 % Low 15.0-55.0 [facility] Vital Signs Date Time Vital Sign Value Performing Clinician Faci lity 04-03-2025 15:53-0400 Body height 177.[address] Anca Ramirez DO Work Phone: [facility] 04-03-2025 15:53-0400 Body mass index (BMI) [Ratio] 31.7 kg/m2 Dr. Anca Ramirez DO Work Phone: [facility] 04-03-2025 15:53-0400 Body temperature 97 [degF] Dr. Anca Ramirez DO Work Phone: [facility] 04-03-2025 15:53-0400 Body weight 100.[address] Anca Ramirez DO Work Phone: [facility] 04-03-2025 15:53-0400 Diastolic blood pressure 79 mm[Hg] Dr. Anca Ramirez DO Work Phone: [facility] 04-03-2025 15:53-0400 Heart rate 90 /min Dr. Anca Ramirez DO Work Phone: [facility] 04-03-2025 15:53-0400 Respiratory rate 18 /min Dr. Anca Ramirez DO Work Phone: [facility] 04-03-2025 15:53-0400 SaO2% (BldA) [Mass fraction] 97 % Dr. Anca Ramirez DO Work Phone: [facility] 04-03-2025 15:53-0400 Systolic blood pressure 131 mm[Hg] Dr. Anca Ramirez DO Work Phone: [facility] 12-20-2024 15:55-0400 Body height 177.[address] Anca Ramirez DO Work Phone: [facility] 12-20-2024 15:55-0400 Body mass index (BMI) [Ratio] 31.7 kg/m2 Dr. Anca Ramirez DO Work Phone: [facility] 12-20-2024 15:55-0400 Body temperature 98.5 [degF] Dr. Anca Ramirez DO Work Phone: [facility] 12-20-2024 15:55-0400 Body weight 100.[address] Anca Ramirez DO Work Phone: [facility] 12-20-2024 15:55-0400 Diastolic blood pressure 80 mm[Hg] Dr. Anca Ramirez DO Work Phone: [facility] 12-20-2024 15:55-0400 Heart rate 70 /min Dr. Anca Ramirez DO Work Phone: [facility] 12-20-2024 15:55-0400 Respiratory rate 18 /min Dr. Anca Ramirez DO Work Phone: [facility] 12-20-2024 15:55-0400 SaO2% (BldA) [Mass fraction] 99 % Dr. Anca Ramirez DO Work Phone: [facility] 12-20-2024 15:55-0400 Systolic blood pressure 127 mm[Hg] Dr. Anca Ramirez DO Work Phone: [facility] Encounters Encounter Date Encounter Type Care Provider Facility Start: 04-03-2025 End: 04-03-[address] George Avila MD -[facility] Work Phone: Start: 04-03-2025 End: 04-03-[address] Anca Ramirez DO Work Phone: -[facility] Start: 03-27-2025 End: 03-27-[address] George Avila MD -Cat Scan [facility] Work Phone: Start: 03-27-[address] George Avila MD -[facility] Start: 03-27-2025 End: 03-27-[address] Anca Ramirez DO Work Phone: -Cat Scan [facility] Start: 03-27-2025 End: 03-27-2025 ambulatory [facility] Facility:[facility] Start: 12-20-2024 End: 12-20-[address] George Avila MD -[facility] Work Phone: Start: 12-20-2024 End: 12-20-2024 ambulatory George Avila Facility:[facility] Start: 11-30-2024 End: 11-30-2024 ambulatory [facility] Start: 11-21-2024 End: 11-21-2024 ambulatory Anca Ramirez Facility:[facility] Start: 10-14-2024 End: 10-14-2024 ambulatory Viet Rea Facility:[facility] Start: 10-09-2024 End: 10-09-2024 [address] [facility] Start: 06-22-2024 ambulatory GAYLE Fernandez [facility] Start: 03-22-2024 End: 03-22-2024 ambulatory ANCA RAMIREZ [facility] Start: 03-21-2024 End: 03-21-2024 ambulatory MELANY MONARodrigo [facility] Start: 03-11-2024 End: 03-11-2024 ambulatory PROVIDER NOT IN SYSTEM [facility] Start: 03-01-2024 End: 03-01-2024 ambulatory ANCA RAMIREZ [facility] Start: 02-24-2024 End: 05-24-2024 ambulatory ANCA RAMIREZ [facility] Start: 02-20-2024 End: 02-20-2024 ambulatory Navarro Orta MD Facility:[facility] Start: 01-08-2024 End: 01-08-2024 ambulatory ANCA RAMIREZ Facility: Start: 12-23-2023 End: 12-23-2023 ambulatory ANCA RAMIREZ Facility: Start: 12-21-2023 End: 12-21-2023 ambulatory ANCA RAMIREZ Facility: Start: 12-21-2023 End: 12-21-2023 ambulatory ANCA RAMIREZ Facility: Start: 12-11-2023 End: 12-11-2023 ambulatory NAVARRO ORTA Facility:[facility] Start: 11-30-2023 End: 11-30-2023 Emergency department patient visit DAVID RAMIREZ [facility] Procedures Date Procedure Procedure Detail Performing Clinician Start: 03-27-2025 CT of thorax, abdome n and pelvis with contrast Dr. Anca Ramirez DO Work Phone: Start: 03-27-[address] Makeda Ramirez DO Work Phone: Start: 12-13-2024 PET study for locali zation of tumor Dr. Anca Ramirez DO Work Phone: Start: 02-24-2024 Carcinoembryonic antigen cea Navarro Orta MD Comment on above: Result Comment: Expe cted Values: Non-Smokers and healthy smokers: < 3.0 ng/mL Performed By: #### C MP, CEA 1, CBC #### Main Lab - [facility] [address] [place] [address] Start: 10-21-[address] Anca Ramirez DO Work Phone: Start: 10-14-[address] Anca Ramirez DO Work Phone: Plan of Treatment Date Care Activity Detail Author Start: 09-02-2023 Venous catheter care management [facility] Payers Date Payer Category Payer Medicaid [id number] 2023 Self-pay 2023 Unknown [id number] 1970 Unknown [id number] 2.16. [id number] 1970 Unknown [id number] 2.16. [id number] 1970 Unknown [id number] 2.16.8 40.1.036726.3.579.2.651 1970 Unknown [id number] 2.16.8 40.1.557589.3.579.2.651 1970 Unknown [id number] 2.16.8 40.1.303986.3.579.2.651 Unknown [id number] 2.16.8 40.1.984440.3.579.2.443 Unknown [id number] 2.16.8 40.1.724935.3.579.2.443 Unknown [id number] 2.16.8 40.1.258409.3.579.2.528 Unknown [id number] 2.16.8 40.1.752778.3.579.2.528 Unknown [id number] 2.16.8 40.1.541596.3.579.2.528 Unknown [id number] 2.16.8 40.1.946414.3.579.2.528 Unknown [id number] 2.16.8 40.1.969719.3.579.2.528 Unknown [id number] Unknown [id number] 2.16.8 40.1.434905.3.579.2.462 Unknown [id number] 2.16.8 40.1.455405.3.579.2.462 Unknown [id number] 2.16.8 40.1.716728.3.579.2.462 Unknown [id number] 2.16.8 40.1.513747.3.579.2.462 Unknown [id number] 2.16.8 40.1.415235.3.579.2.462 Unknown [id number] 2.16.8 40.1.357697.3.579.2.462 Unknown [id number] 2.16.8 40.1.008312.3.579.2.462 Social History Date Type Detail Facility Start: 11-21-2024 Tobacco smoking stat [facility] Current some day smoker [facility] Start: 1970 Sex Assigned At Male [facility] Radiology Diagnostic study note 03-29-2025 Note Date & Type Note Facility 03-29-2025 Radiology Diagnostic study note [facility] Imaging Services [address] [place] [address] CT Chest, Abd, Pel w/Contrast MR#: [id number] Acct: [id number] Name: RONALD MELO Rep #: [id number] : 1970 M 55 From: Adilson Rivera MD PCP: Dr. Anca Ramirez, DO Status: RE G CLI Study:CT Chest, Abd, Pel w/Contrast Date of E xam: 03/27/25 Exam# [id number] Ordering Dr: Panda Avila MD PROCEDURE: CT CHEST, ABD, PEL W/CONTRAST 03/27/2025 REASON FOR EXAM: COLON [id number] History of partial colon resection and right orchiectomy. TECHNIQUE: Chest, abdomen and pelvis CT with intravenous contrast. Coronal and Sagittal reconstruction series were provided. One or more dose reduction techniques were used (e.g., Automated exposure control, adjustment of the mA and/or kV according to patient size, use of iterative reconstruction technique. PATIENT PREPARATION: Per protocol ORAL CONTRAST TYPE: None. CONTRAST: Isovue-300 VOLUME: 100mL RADIATION DOSE SUMMARY: CTDlvol: 20.2 mGy DLP: 2070.18 mGycm COMPARISON: Prior PET scan dated December 14, 2024. FINDINGS: CT CHEST: Hardware: None Lymph nodes: Small bilateral fat containing axillary lymph nodes. Heart and Vasculature: Minimal coronary artery calcification. Lungs and Airways: The lungs are clear. Pleura: No evidence of pleural effusion. Bones: Degenerative changes of the thoracic spine. CT ABDOMEN/PELVIS: Liver: Diffuse fatty infiltration. There is a 2.1 cm by 1.5 cm by 2.7 cm hypodense nodule in the inferior aspect of the right lobe of the liver. This is not a typical cyst. A focal metastatic deposit should be ruled out. Gallbladder: Unremarkable Spleen: Normal size. Pancreas: Normal size without evidence of mass surrounding inflammation or ductal dilation. Adrenals: Unremarkable Kidneys: Normal renal sizes. No hydronephrosis. Bladder: The urinary bladder is unremarkable although it is not completely distended. Focal calcific plaques are seen in the penis. Bowel: The patient is status post right hemicolectomy. Surgical anastomosis is seen in the proximal aspect of the transverse colon. The sigmoid colon is not completely distended. There appears to be thickening of the wall. Inflammatory process should be ruled out. Multiple tiny linear density are seen within the sigmoid fat. Increased markings are seen in the region of the right groin. This corresponds to the abnormal uptake in the PET scan. This may represent postoperative changes. Clinical correlation is recommended. Lymph nodes: Unremarkable. Vasculature: Unremarkable Peritoneum / Retroperitoneum: No retroperitoneal lymph nodes. Bones: Degenerative changes of the spine. CT/CT Chest, Abd, Pel w/Contrast IMPRESSION: Status post right hemicolectomy. 2.1 cm x 1.5 cm 2.7 cm hypodense nodule in the inferior aspect of the right lobeof the liver. Findings suggestive of mild inflammatory changes in the rectosigmoid colon. Increased markings are seen in the right groin in keeping with the findings on the PET scan. This may represent postoperative changes. Clinical correlation recommended. Reading Location: [id number] CC: Dr. Anca Ramirez DO; Dr. George Avila MD ~ [employer] Floor Supervisor: Signed [facility] Evaluation note 12-20-2024 Note Date & Type Note Facility 12-20-2024 Evaluation note Diagnosis Onset Date Resolution Colon cancer chronic December 20, 2024 3:50pm Metastatic adenocarcinoma chronic December 20, 2024 3:50pm [facility] Work Phone: Evaluation note 12-20-2024 Note Date & Type Note Facility 12-20-2024 Evaluation note Diagnosis Onset Date Resolution Colon cancer chronic December 20, 2024 3:50pm Metastatic adenocarcinoma chronic December 20, 2024 3:50pm Colon cancer chronic April 03, 2025 3:29pm Metastatic adenocarcinoma chronic April 03, 2025 3:29pm [facility] Work Phone: Clinical Note 10-14-2024 Note Date & Type Note Facility 10-14-2024 Note [facility] Medical Records Department [address] [place] [address] History Physical Exam 10/14/24 1836 MR#: [id number] Acct: [id number] Name: RONALD MELO Rep #: [id number] : 1970 54 From: Viet Rea MD PCP: Dr. Anca Ramirez, DO Status:[facility] Location: [place] [address] HPI - General General Date of Service: 10/14/24 Chief Complaint: Right paratesticular mass HPI Narrative RONALD MELO, is a 54 M who presents to my office with a right paratesticular mass he has a history of colon cancer supposedly this mass was biopsied and came back with adenocarcinoma undergoing procedure removal of this right paratesticular mass that is bothering him he did a PET scan that was negative otherwise and the rest of the body but I think given this fact that he is got a mass here that could be metastatic we can go ahead and remove it he understands it is possible this may not be curative but he also wants to have the testicle removed since it is bothering him. [facility] Medical History Loss of hearing Wears glasses Cancer Marijuana use Alcohol use Arthritis Back pain Migraine headache Smoker Leg cramps History of pain when walking CINV (chemotherapy-induced nausea and vomiting) Encounter for chemotherapy management Encounter for education Adenocarcinoma, colon Iron deficiency anemia GERD (gastroesophageal reflux disease) Hyperlipidemia Home Medications ???Medication ???Instructions ???Recorded ???Last Taken ???Type acetaminophen 500 mg tablet 1,000 mg PO Q6H PRN pain 10/07/24 Unknown History oaxxnpm-uipfrfvpcomxm-arxreyev 250 1 tab PO Q6H PRN pain 10/07/24 U nknown History mg-250 mg-65 mg tablet (Excedrin Extra Strength) ibuprofen 800 mg tablet (IBU) 800 mg PO Q8H PRN pain 10/07/24 Un known History oxycodone 5 mg tablet 5 mg PO Q6H PRN pain 3 days #14 Unknown Rx tabs Allergy/AdvReac Type Severity Reaction Status Date / Time No Known Allergies Allergy Verified 10/14/24 14:28 Family History Grandmother No problems noted. Mother Cancer lung Father Myocardial infarction Heart disease Surgical History Hx of colonoscopy Hx of right hemicolectomy Social History Smoking Status: Current every day smoker (patient did not smoke today.) tobacco type: cigarettes and smokeless tobacco alcohol intake: current alcohol intake frequency: a few times a month Vital Signs Vital Signs Vital Signs: 10/14/24 14:28 10/14/24 14:28 10/14/24 16:02 Temperature 99.2 F H 99.2 F H Temperature Source Temporal Pulse Rate 79 79 Respiratory Rate 16 16 Respiratory Pattern Normal Blood Pressure 163/99 H 163/99 H Blood Pressure Mean 120 Blood Pressure Source Monitor Blood Pressure Position [employer]owlers Blood Pressure Location Right Arm Pulse Ox 100 100 Oxygen Delivery Method Room Air Room Air Weight Weight: 101.605 kg Body Mass Index (BMI) 32.1 10/14/24 1837 Cosigner Signature (if applicable): CC: Dr. Anca Ramirez DO; Dr. Viet Rea MD Signed [facility] Progress note 03-22-2024 Note Date & Type Note Facility 03-22-2024 Note Subjective Patient ID: Ronald Melo is a 54 y.o. male. HPI 54-year-old male status post right hemicolectomy back in May 2023 for colon cancer. His final staging was T3 N1 so he received 6 months of adjuvant chemotherapy. He started complaining of right inguinal pain. He was seen by urologist with aspiration of what appeared to be a hydrocele. He was found to have adenocarcinoma in the fluid in the right testicle. He had a PET/CT that I personally seen and reviewed. The only area of enhancement is in the right testicle. He presents today for further discussion and. His accompanies him today. The following portions of the patient's history were reviewed and updated as appropriate: allergies, current medications, past family history, past medical history, past social history, past surgical history, and problem list. History reviewed. No pertinent past medical history. Past Surgical History: Procedure Laterality Date colon cancer COLON SURGERY PORT REMOVAL Current Outpatient Medications: acetaminophen (TYLENOL) 325 MG tablet, Take 2 (two) tablets (650 mg total) by mouth every 6 (six) hours as needed for pain ., Disp: , Rfl: azelastine (ASTELIN) 137 mcg (0.1 %) nasal spray, USE 1 SPRAY(S) IN EACH NOSTRIL TWICE DAILY DIRECTED, Disp: , Rfl: pantoprazole (PROTONIX) 40 MG tablet, Take 1 (one) tablet (40 mg total) by mouth daily ., Disp: , Rfl: Review of Systems Constitutional: Negative for chills, diaphoresis, fatigue and fever. HENT: Negative. Eyes: Negative. Respiratory: Negative for cough, choking, chest tightness, shortness of breath, wheezing and stridor. Cardiovascular: Negative for chest pain, palpitations and leg swelling. Gastrointestinal: Negative for abdominal distention, abdominal pain and diarrhea. Endocrine: Negative. Genitourinary: Negative. Musculoskeletal: Negative for joint swelling and myalgias. Skin: Negative. Allergic/Immunologic: Negative. Neurological: Negative. Hematological: Negative. Psychiatric/Behavioral: Negative. Objective Physical Exam Vitals reviewed. Constitutional: General: He is not in acute distress. Appearance: He is well-developed. He is not diaphoretic. HENT: Mouth/Throat: Pharynx: No oropharyngeal exudate. Eyes: General: No scleral icterus. Conjunctiva/sclera: Conjunctivae normal. Pupils: Pupils are equal, round, and reactive to light. Neck: Thyroid: No thyromegaly. Vascular: No JVD. Trachea: No tracheal deviation. Cardiovascular: Rate and Rhythm: Normal rate and regular rhythm. Heart sounds: No murmur heard. No friction rub. No gallop. Pulmonary: Effort: Pulmonary effort is normal. No respiratory distress. Breath sounds: Normal breath sounds. No wheezing or rales. Abdominal: General: Bowel sounds are normal. There is no distension. Palpations: Abdomen is soft. There is no mass. Tenderness: There is no abdominal tenderness. There is no guarding or rebound. Musculoskeletal: General: No tenderness. Normal range of motion. Cervical back: Normal range of motion and neck supple. Lymphadenopathy: Cervical: No cervical adenopathy. Skin: General: Skin is warm and dry. Findings: No rash. Neurological: Mental Status: He is alert and oriented to person, place, and time. Psychiatric: Behavior: Behavior normal. Judgment: Judgment normal. 242:16 PM No results found for: FINALDX US Comparison Import This order has been auto-finalized and does not contain a result. No results found for this or any previous visit (from the past 336 hour(s)). No results found for: CA199, CEA, AFP Assessment/Plan: 54-year-old male with recurrent cancer in the right inguinal and testicular area. I recommended a diagnostic laparoscopy to rule out other disease. Assuming he does not have any other disease I would recommend his urologist perform an orchiectomy and remove the inguinal canal contents. I am glad to do it but a urologist does this procedure more often than myself. He if he does have further disease then we would have a discussion about cytoreductive surgery and hyperthermic intraperitoneal chemotherapy. All the above been discussed with the patient and his . All questions answered to his satisfaction. We will proceed with diagnostic laparoscopy on Thursday. 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 Ambulatory Clinical Note 01-14-2024 Note Date & Type Note Facility 01-14-2024 [place] [address] HEALTH INFORMATION MANAGEMENT OPERATIVE REPORT : [id number] Signed Patient: RONALD MELO Acct:[id number] MRUN : [id number] : 1970 Sex: M Loc: SDS ADM Date: Room/Bed: DISC Date: 01/08/24 __ Procedure DATE OF SERVICE: 01/08/24 SURGEON: NAVARRO ORTA ATTENDING PHYSICIAN: NAVARRO ORTA PROGRAMMER ANALYST HEALTH IT: sheri TYPE OF ANESTHESIA: General Preoperative Diagnosis: right hydrocele Postoperative Diagnosis: right hydroecle and right hematocele Allergies/Adverse Reactions: No Known Allergies Allergy (Unverified 01/08/24 06:23) Condition: Good Impression: Pt Condition Improving IMPRESSION: right hydrocele The patient was taken back to the operating room and laid in the supine position. He underwent smooth induction of general anesthesia. He received perioperative antibiosis. There was noted to be redundant scrotal tissue associated with a very large hydrocele which has been treated (dictated separately). The excess tissue was excised upon the intact vascular pedicles of the dartos muscle and scrotal skin. The tissue was then reapproximated using a running subcuticular absorbable stitch and the skin was closed with a running absorbable suture. The patient was seen for a large right hydrocele for which is discussed with him hydrocelectomy. The risks and benefits of the procedure were explained to the patient who agreed to proceed, a consent was signed and placed in the chart. The patient was taken back to the OR. He underwent smooth induction of general anesthesia. He was prepped and draped in sterile fashion. Next a transverse incision was made in the right hemiscrotum. The testicle and hydrocele was delivered from the incision. the tunica was then incised and drained and the rest of the tunica was excised and closed as described by rosa maria with 3-0 dexon. the wound was copiously irrigated. Hemostasis was achieved with electrocautery. The dartos was closed with a running dexon suture and the skin was closed with suture and surgical glue. The patient tolerated the procedure well. He was transferred to the PACU in stable condition. He will follow up in 2 weeks Continue Current Course of Treatment PLAN: follow up in 3 months FOLLOW-UP: Next Scheduled Office Appointment NEW ORDERS: New Orders-Lab 01/08/24 06:48 BMP [Basic Metabolic Panel] [CHM] Stat CBC w/Auto Differential [HEM] Stat New Orders-Radiology 01/08/24 Tissue Specimen [PATH] Routine Medications 01/08/24 07:22 Normal Saline 0.9% 1000 ml [Sodium Chloride 0.9 % 1000 ml] 1,000 ml IV 50 mls/hr 01/08/24 07:30 Cefazolin Sodium [Cefazolin Sodium 2 gm] 2 gm Normal Saline [Sodium Chloride 0.9 % 100 ml] 100 ml IVPB ONE d/c home Brief Surgical History EBL (mls): 10 Dressing: Dermabond Specimen Sent to Lab: Yes (peratesticular mass) Electronically Generated By: NAVARRO ORTA MD Generated Date/Time: 01/08/24 0749 Electronically Signed By: 01/14/24 0243 Co Signed Electronically By: Co Signed Date/Time: CC: ANCA RAMIREZ MD; NAVARRO ORTA MD [facility] History and physical note 01-07-2024 Note Date & Type Note Facility 01-07-2024 [place] [address] HEALTH INFORMATION MANAGEMENT HISTORY AND PHYSICAL : [id number] Signed with Mariaelena Patient: RONALD MELO Acct:[id number] MRUN : [id number] : 1970 Sex: M Loc: SDS ADM Date: Room/Bed: DISC Date: __ ADDENDUM a 10 point review of systems is otherwise negative except as mentions in the HPI Addendum: Signed Date/Time: 01/07/24 0604 Co-Signed: Co-signed Date/Time History of Present Illness Date Of Admission: 01/08/24 Chief Complaint: right hydrocele History of Present Illness: Visit History RONALD MELO is a 53 year old M patient of ANCA RAMIREZ MD. Patient was admitted from to room , bed on . Pt was evaluated for complaints of , then admitted to [facility] for N43.3. RONALD was admitted as a PRE to [facility] for further evaluation and treatment. Pt was seen and evaluated on 01/06/24 0723, by this provider, NAVARRO ORTA MD. Patient has right hydrocele Physical Exam General: Yes: Alert, Oriented (X3), Cooperative/Pleasant, No acute distress HEENT: Yes: Atraumatic, PERRLA, EOMI, Mucous membr. moist/pink Lungs: Yes: Clear to auscultation, Normal air movement, Unlabored. No: Shortness Of Breath Scale Cardiovascular: Yes: Regular rate, Normal S2, Normal S1. No: No murmurs, Gallops, Rubs Abdomen: Yes: Bowel Sounds X4, Soft, No Tenderness, Flatus (Present), Bowel Pattern. No: Hepatospenomegaly, Masses, Nausea/Vomiting, Emesis Present, Constipation, Diarrhea Extremities: Yes: Normal pulses. No: Clubbing, Cyanosis, Edema, No tenderness/swelling, Mottling noted Skin: No: Rashes, Skin Breakdown, Significant lesions, Open Wound Present, Skin Tear Neurological: Yes: Normal Gait, Speech Clear, Strength Normal X4 ext, Normal tone, Sensation intact, Cranial nerves 3-12 NL, Reflexes 2+, Cognitive Ability Intact Psych/Mental Status: Yes: Mental status NL, Mood Appropriate. No: Depressed/Withdrawn, Hallucinations Genitourinary/Rectal: Yes: Genitalia (Normal For Gender), Voiding (Sufficiently), Normal Rectal Tone. No: Genital Discharge, Bladder Distention, Rectal Masses Breast Exam: No: Lump, Skin Changes, Ulcers, Nipple Drainage, Pain Impressions - Problems (1) Right hydrocele Status: Acute Plan/Treatment Plan: To OR for RIGHT hydrocelectomy New Orders: Medications 01/08/24 07:30 Cefazolin Sodium [Cefazolin Sodium 2 gm] 2 gm Normal Saline [Sodium Chloride 0.9 % 100 ml] 100 ml IVPB ONE Electronically Generated By: NAVARRO ORTA MD Generated Date/Time: 01/06/24722 Electronically Signed By: 01/06/24724 Co Signed Electronically By: Co Signed Date/Time: CC: ANCA RAMIREZ MD [facility] Reason for referral (narrative) Note Date & Type Note Facility Reason for referral (narrative) No reason for referral information available [facility] Work Phone: Summary Purpose Family History No Family History Records Found Relationship Condition Age at Onset Recorded Date/T majo mother Malignant neoplasm Unknown father Myocardial infarction Unknown Cardiac disease Unknown Advance Directives No Advanced Directives Records Found Advance Directive Response Recorded Date/ Time Advance Directives on File Yes 2023 11:51am Living Will Yes October 21 11:51am Do you have a Healthcare Power of Information Coder? Yes October 21, 2023 11:51am Name of Medical Power of Information Coder Swapna Melo October 21, 2023 11:51am Advance Directives Yes October 11:51am Chief Complaint and Reason for Visit Chief Complaint Admit Date NO LABS REVIEW PET December 20, 2024 3:5 0pm COLORECTAL March 27, 2025 2:55 pm C18.2 Malignant neoplasm of ascending co hany March 27, 2025 3:22pm Reason for Visit Admit Date Colon cancer December 20, 2024 3:5 0pm Metastatic adenocarcinoma December 20 3:50pm Chief Complaint Admit Date NO LABS REVIEW PET December 20, 2024 3:5 0pm COLORECTAL March 27, 2025 2:55 pm C18.2 Malignant neoplasm of ascending co hany March 27, 2025 3:22pm 3MO LABS PRIOR REVIEW CT April 03 3:29pm Reason for Visit Admit Date Colon cancer December 20, 2024 3:5 0pm Metastatic adenocarcinoma December 20 3:50pm Colon cancer April 03, 2025 3:2 9pm Metastatic adenocarcinoma April 03 3:29pm Additional Source Comments (unrecognized sect ion and content) No Status Records FoundNo Status Records FoundNo Status Records FoundNo Status Records FoundNo Status Records FoundNo Status Records FoundNo Status Records Found INFORMATION SOURCE (unrecogn ized section and content) DATE CREATED AUTHOR 03/25/2024 [facility] DATE CREATED AUTHOR AUTHOR'S ORGANIZ ATION 03/25/2024 [facility] DATE CREATED AUTHOR AUTHOR'S ORGANIZ ATION 05/27/2024 [facility] DATE CREATED AUTHOR AUTHOR'S ORGANIZ ATION 07/08/2024 [facility] DATE CREATED AUTHOR AUTHOR'S ORGANIZ ATION 10/10/2024 [facility] DATE CREATED AUTHOR AUTHOR'S ORGANIZ ATION 12/05/2024 [facility] DATE CREATED AUTHOR AUTHOR'S ORGANIZ ATION 04/05/2025 [facility] Care Teams (unrecognized sec tion and content) Team Status: Active Member Role/Relationship Status Dates Dr. Anca Ramirez DO Primary Care Provider Active Team Status: Inactive Member Role/Relationship Status Dates Dr. Anca Ramirez DO Primary Care Provider Active Start: December 20, 2024 End: December 20, 2024 Dr. Anca Ramirez DO Referring Provider Active Start: December 20, 2024 End: December 20, 2024 Dr. George Avila MD Attending Provider Active S tart: December 20, 2024 End: December 20, 2024 Team Status: Active Member Role/Relationship Status Dates Dr. George Avila MD Attending Provider Active S tart: March 27, 2025 Dr. George Avila MD Referring Provider Active S tart: March 27, 2025 Dr. Anca Ramirez DO Primary Care Provider Active Start: March 27, 2025 Team Status: Inactive Member Role/Relationship Status Dates Dr. Anca Ramirez DO Primary Care Provider Active Start: March 27, 2025 End: March 27, 2025 Dr. George Avila MD Attending Provider Active S tart: March 27, 2025 End: March 27, 2025 Dr. George Avila MD Referring Provider Active S tart: March 27, 2025 End: March 27, 2025 Team Status: Inactive Member Role/Relationship Status Dates Dr. Anca Ramirez DO Primary Care Provider Active Start: April 03, 2025 End: April 03, 2025 Dr. Anca Ramirez , DO Referring Provider Active Start: April 03, 2025 End: April 03, 2025 Dr. George Avila MD Attending Provider Active S tart: April 03, 2025 End: April 03, 2025 Goals (unrecognized section and content) Goals may be documented in a n alternate sectionGoals may be documented in an alternate section FOR RECORDS PERTAINING TO PATIENTS WHO ARE OR HAVE BEEN ENROLLED IN A CHEMICAL DEPENDENCY/SUBSTANCEABUSE PROGRAM, SOME INFORMATION MAY BE OMITTED. This clinical summary was aggregated from multiple sources. Caution should be exercised in using it in the provision of clinical care. This summary normalizes information from multiple sources, and as a consequence, information in this document may materially change the coding, format and clinical context of patient data. In addition, data may be omitted in some cases. CLINICAL DECISIONS SHOULD BE BASED ON THE PRIMARY CLINICAL RECORDS. [facility]. provides no warranty or guarantee of the accuracy or completeness of information in this document.
--- OUTSIDE RECORDS SUMMARY | 2025-04-08 10:11 | XMS RPT_ITS | CCD ---
Author Organization [facility] Care Team Providers Care Guidance Services Coordinator Name Role Phone ANCA RAMIREZ Primary Care [...] Admitting Unavailable MELANY QUIJANO Attending Unavailable [facility], [facility] Primary Care Unavailable RAMIREZ, [facility] Primary Care Unavailable MELANY QUIJANO Attending [...] James NOLAND, Dr. Anca Thomson Referring Provider Dr. George Avila MD Attending Provider Margarita HORN, Dr. Vazquez Referring Provider [phone] George Avila Attending Unavailable James, Anca Thomson Primary Care Unavailable James, Anca Thomson Referring Unavailable Prah, George Attending Unavailable James, Anca Thomson Primary Care Unavailable Ramirez, Anca Thomson Referring Unavailable Armirez, Anca Thomson Primary Care Unavailable James, Anca [...] of colon Malignant neoplasm of colon, unspecified Xq-Dne-Zutcu-E2-Xhhofto-Pygt in (Centrum Silver Men) 935-21-213-300 mcg tablet (2 sources) Start: 07-22-2023 End: 10-07-2024 Fh-Dkn-Yzkod-R1-Rqkipfn-Gpql in (Centrum Silver Men) 503-00-213-300 mcg tablet Discontinued 1 {tbl} PO DAILY [...] Counts [place]. 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 [address] OFFICE VISIT Date of Service: 04/03/25 1550 MR#: [id number] Acct: [id number] Name: RONALD MELO Rep #: [id number] : 1970 From: George Avila MD Age/Sex: 55/M Location[place] [facility] Status: Signed HPI Subjective Date of Service [...] with right paratesticular mass. Biopsy done at [facility] showed adenocarcinoma. He had a PET CT [...] ???Confirmed ???Type (more content not included)... Normal [facility] Carcinoembryonic Antigenon 0 03-29-2025 CEA 6.1 ng/mL High 0.0-4.7 [facility] Comment on above: Result Comment: Nons mokers <3.9 Smokers <5.6 [facility] Electrochemiluminescence Immunoassay (ECLIA) Values obtained with different assay methods or kits cannot be used interchangeably. Results cannot be interpreted as absolute evidence of the presence or absence of malignant disease. Performed at: - [address] [id number] Manager Educational: Jonny Aj PhD, Phone: [phone] Performed By: #### L 3100.2300 #### [facility] Laboratory [address] [place] [address]. [place], [address] CT Chest, Abd, Pel w/Contras ton 03-27-2025 CT Chest, Abd, Pel w/Contrast [facility] Imaging Services [address] [place] [address] [address] [address] Chest, Abd, Pel w/Contrast MR#: [id number] Acct: [id number] Name: RONALD MELO Rep #: [id number] : 1970 M 55 From: Kenton pulido MD PCP: Dr. Anca Ramirez, DO Status: REG CLI Study: CT Chest, Abd, Pel w/Contrast Date of Exam: Exam# [id number] Ordering Dr: George Avila MD PROCEDURE: CT CHEST, ABD, PEL W/CONTRAST 03/27/2025 REASON FOR EXAM: COLON JXIMSK-L-RHFVZDTAB History of partial colon resection and right [...] postoperative changes. Clinical correlation recommended. Reading Location: [id number] CC: Dr. Anca Ramirez DO; Dr. George Avila MD Bilingual Case Manager: Signed Normal [facility] NATERAon 03-27-2025 SHIRIN SEE SCANNED REPORT Normal [facility] Comment on above: Performed By: #### L 900.0098 #### [facility] Laboratory [address] [place], [address] Serum or plasma carcinoembry onic antigen measurement (mass/volume)Ordered By: George vAila on 03-27-2025 Carcinoembryonic Ag [Mass/Vol] 6.1 ng/mL High 0.0-4.7 [facility] Comment on above: Nonsmokers <3.9 Smok ers <5.6[facility] Electrochemiluminescence Immunoassay(ECLIA)Values obtained with different assay methods or kitscannot be used interchangeably. Results cannot beinterpreted as absolute evidence of the presence orabsence of malignant disease.Performed at: [facility] [id number] Director: Jonny Aj PhD, Phone: [phone] Oncology Visit Reporton 11-30 Oncology Visit Report [facility] [address] [place] [address] OFFICE VISIT Date of Service: 12/20/24 1553 MR#: [id number] Acct: [id number] Name: RONALD MELO Rep #: [id number] : 1970 From: George Avila MD Age/Sex: 54/M Location: [facility] Status: Signed HPI Subjective Date of Service [...] with right paratesticular mass. Biopsy done at [facility] showed adenocarcinoma. He had a PET CT [...] PO Q6H PRN pain 10/07/24 12/20/24 History xgqahwp-abjismvruksjm-uszo eine 250 1 tab PO Q6H PRN [...] C79.9 Assessme (more content not included)... Normal [facility] PET/CT Tumor Base -Thigh Sub son 12-13-2024 PET/CT Tumor Base -Thigh Subs [facility] Imaging Services [address] [place] [address] PET/CT Tumor Base -Thigh Subs MR#: [id number] Acct: [id number] Name: KAMERONRONALD Duncan Rep #: [id number] : 1970 M 54 From: Melany Wooten PCP: Dr. Anca Ramirez, DO Status: REG RCR Study: PET/CT Tumor Base -Thigh Subs Date of Exam: Exam# [id number] Ordering Dr: George Avila MD PROCEDURE: PET/CT [...] PET will be reported separately. Reading Location: [address] CC: Dr. Anca Ramirez DO; Dr. George Avila MD Bilingual Case Manager: Signed Normal [facility] Oncology Visit Reporton Oncology Visit Report [facility] [address] [place] [address] OFFICE VISIT Date of Service: 11/30/24 1557 MR#: [id number] Acct: [id number] Name: RONALD MELO Rep #: [id number] : 1970 From: George Avila MD Age/Sex: 54/M Location: [facility] Status: Signed HPI Subjective Date of Service [...] with right paratesticular mass. Biopsy done at [facility] showed adenocarcinoma. He had a PET CT [...] PO Q6H PRN pain 10/07/24 11/30/24 History bwnjqzx-mavzehwhbedai-usrx eine 250 1 tab PO Q6H PRN [...] chemotherapy/monoclonal antibodies/immunoth (more content not included)... Normal [facility] MICROSATELLITE INSTABILITY ( MSI) ANALYSIS, TUMOR, FINALon 11-24-2024 Block/ A1 Normal [facility] Comment on above: Performed By: #### M SI #### [facility] (DEFAULT) [address] [place] [address] Method/Limitations: [facility] Comment on above: Result Comment: The [employer] Hearing Aids MSI Test, for use on the [employer] System, uses formalin-fixed, paraffin embedded (FFPE) tissue [...] by the [facility] of the [facility] at [address] [place] [address] under the medical direction of Fred Hernández MD, PhD. It has not been cleared or approved by the U.S. Food and Drug Administrations. Since FDA (U.S. Food and Drug Administration) is not required for clinical use of this test, this laboratory has established and validated the test's accuracy and precision, pursuant to the requirement of CLIA '88. Performed By: #### M SI #### [facility] (DEFAULT) [address] [address] MSI by PCR result MARY. Tumor is microsatellite stable Normal [facility] Comment on above: Performed By: #### M SI #### [facility] (DEFAULT) [address] [address] MSI Interpretation A microsatellite sta ble (MARY) pattern result is obtained by profiling of 7 monomorphic homopolymer loci on the [employer] platform. This is consistent with a proficient mismatch repair (MMR) phenotype. Run and sample controls meet acceptable criteria. Normal [facility] Comment on above: Performed By: #### M SI #### [facility] (DEFAULT) [address] [place] [address] Reviewed by Angelito Madsen MD, PhD [facility] Comment on above: Performed By: #### M SI #### [facility] (DEFAULT) [address] [place] [address] Tissue Source Right testicle, radi dimple orchiectomy Normal [facility] Comment on above: Performed By: #### M SI #### [facility] (DEFAULT) [address] [place] [address] SURG PATH REQUESTon 11-25-[address] [facility] Comment on above: Result Comment: Surg ical Pathology Report Case: [id number] Authorizing Provider: George Avila MD Collected: 11/24/2024 02:47 PM Ordering Location[facility] Received: 11/24/2024 02:47 PM GARCIA Pathologist: Polo Klein MD, PhD Specimen: SURG PATH, [facility] block; Right testicle; Molecular testing Performed By: #### S URGP #### [facility] (DEFAULT) [address] [place] [address] Clinical History [facility] Comment on above: Result Comment: Rece ived is a request from Dr. George Avila at [facility], [address] [place] [address] for molecular testing on block S25690. Performed By: #### S URGP #### [facility] (DEFAULT) [address] [place] [address] Diagnosis Comments HER2/FISH, PD-L1, MM R IHC, COLMOL and STPNGS were requested by George Avila on 11/24/24. Block C62-501-L8 was submitted to histology laboratory for recutting and staining. [facility] Comment on above: Performed By: #### S URGP #### [facility] (DEFAULT) [address] [place] [address] Gross Description [facility] Comment on above: Result Comment: The following material(s) are received from [facility], [address] [place] [address] with an identifying Surgical Pathology Report: One 1 paraffin block (A7) labeled S25690. Outside materials are returned in 60 days under separate cover with our number recorded on them. Grosser for this case was: Sol Adams Performed By: #### S URGP #### [facility] (DEFAULT) [address] [place] [address] Microscopic Description Normal [facility] Comment on above: Result Comment: A mi croscopic examination was performed. MLH1: Intact PMS2: Intact MSH2: Intact MSH6: Intact *PD-L1 IHC 22C3 pharmDx is a FDA-approved inside sales advisor diagnostic for pembrolizumab performed on [employer] [...] Genie? Pro Detection Kit, DAB on the [employer] Tissue Kam Genie Advanced Staining System. Convincing [...] developed by and are performed at the [facility], Clinical Laboratory, [address], [address], [place] [address].. All tests reported here, except those addressing HER2/hakan overexpression as a predictive marker, have not been cleared by or approved by the US Food and Drug Administration (FDA). The laboratory is regulated under CLIA as qualified to perform high-complexity testing. The tests are used for clinical purposes. They should not be regarded as investigational or for research. Performed By: #### S URGP #### [facility] (DEFAULT) [address] [address] Pathologic [address] [facility] Comment on above: Result Comment: Outs [...] EDT Performed By: #### S URGP #### [facility] (DEFAULT) [address] [address] Professional Interpretation Performed at: [facility] Comment on above: Result Comment: [facility] For Immediate Release to Patient's [facility]? Yes [address] [facility] [address] [place], [place] [address] Performed By: #### S URGP #### [facility] (DEFAULT) [address] [place] [address] Carcinoembryonic Antigenon 0 11-23-2024 CEA 3.7 ng/mL Normal 0.0-4.7 [facility] Comment on above: Result Comment: Nons mokers <3.9 Smokers <5.6 [facility] Electrochemiluminescence Immunoassay (ECLIA) Values obtained with different assay methods or kits cannot be used interchangeably. Results cannot be interpreted as absolute evidence of the presence or absence of malignant disease. Performed at: [address] [id number] Manager Educational: Jonny Aj PhD, Phone: [phone] Performed By: #### L 3100.2300 #### [facility] Laboratory [address] [place], [place], [address] NATERAon 11-21-2024 NATURA SEE SCANNED REPORT Normal [facility] Comment on above: Performed By: #### L 900.0098 ####[facility] [address] [place], [place], [address] Oncology Visit Reporton 10-30 Oncology Visit Report [facility] [address] [facility] [place] [address] OFFICE VISIT Date of Service: 11/21/24 1448 MR#: [id number] Acct: [id number] Name: RONALD MELO Rep #: [id number] : 1970 From: George Avila MD Age/Sex: 54/M Location: [facility] Status: Signed HPI Subjective Date of Service [...] with right paratesticular mass. Biopsy done at [facility] showed adenocarcinoma. He had a PET CT [...] PO Q6H PRN pain 10/07/24 11/21/24 History fvvmjbu-orwwavjgdzhpl-akkm eine 250 1 tab PO Q6H PRN [...] with chemother (more content not included)... Normal [facility] Discharge Instructionon 10-01 Discharge Instruction [facility] Medical Records Department [address] [place] [address] Instructions for Home/Discharge Instructions 10/14/24 1837 MR#: [id number] Acct: [id number] Name: RONALD MELO Duncan Rep #: [id number] : 1970 54 From: Viet Rea MD [...] Your Visit: Right paratesticular mass Attending Provider: Viet Rea Primary Care Provider: Anca Ramirez Instructions Print Language: Jordanian Discharge Orders/Prescriptions Prescriptions: New oxycodone 5 mg [...] CC: Dr. Anca Ramirez DO Signed Normal [facility] ER (initial)on 10-14-2024 ER (initial) ------ Patient Age/Sex Location Account Attending Physician RONALD MELO 54/M [facility] [id number] Dr. Viet Rea MD Specimen: [id number] Received: 10/18/24 Status: VIC [place] Num: [id number] Spec Type: IMMUNO Subm Dr: Dr. Viet Rea MD PHYSICIAN INSTITUTION [place] [address] SPECIMEN INFORMATION: Tissue Source: A- Right testicle Clinical Info: Right paratesticular mass Specimen Number: [id number] CPT code: 16784,21951m66 METHODOLOGY: Deparaffinized sections of prefer/formalin-fixed tissue or PAP/DQ stained slides are incubated with monoclonal/polyclonal antibodies/oligonucleotide probes. Localization is made via biotin free immunoperoxidase method. Appropriate controls are performed and reacted as expected. Results on target cell population are indicated in the following table: RESULTS: ANTIBODY / CLONE RESULT Block A 7 AE1-3 (AE1/AE3/PCK26) positive CK7 (OV-TL12/30) negative CK8 (12dccqK56) positive CK20 (KS20.8) positive CDX2 (CMW7491E) positive MOC-31 (4561) positive TTF-1 (8G7G3/1) positive Napsin A (Rabbit Polyclonal) negative HepPar (OCh1E5) negative RCC (PN-15) negative CK5-6 (D5 1684) negative P40 (BC28) negative P53 (DO-7) positive (indeterminate pattern) Ki-67 (30-9) positive, high PSAP (PASE/4LJ) negative These tests were developed and their performance characteristics determined by [facility] Laboratory. They may not have been cleared or approved by the U.S. Food and Drug Administration. The FDA has determined that such clearance or approval is not necessary. The above immunohistochemical/dualIS H markers are ordered and reviewed by the Pathologist. Patient Age/Sex Location Account Attending Physician RONALD MELO 54/M [facility] [id number] Dr. Viet Rea MD INTERPRETATION: A. Right testicular, radical orchiectomy: Metastatic mucinous adenocarcinoma. See comment. 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 ELIDA. 10/19/2024 Signed (signature on file) Dr. Stephon Chacon MD 10/19/24 1450 [facility] Comment on above: Performed By: #### P ER #### [facility] Laboratory [address] [facility] [place], [address] MR/POSTOP.ANEon 10-14-2024 MR/POSTOP.ANE [facility] Medical Records Department [address] [place] [address] Anesthesia Postop Eval I 10/14/24 1843 MR#: [id number] Acct: [id number] Name: KAMERONRONALD PEÑA Dunacn Rep #: [id number] : 1970 54 From: Andreina Meléndez PCP: Dr. Anca Ramirez, DO Status:REG [facility] Y Race: C Location: [place] [address] Anesthesia: Postop Eval I Current Vital Signs [...] Andreina Liriano Signature: Date CC: Signed Normal [facility] MR/SESGHIHA0oi 10-14-2024 MR/POSTOPAN2 [facility] Medical Records Department [address] [place] [address] Anesthesia Postop Eval II 10/14/245 MR#: [id number] Acct: [id number] Name: RONALD MELO Rep #: [id number] : 1970 54 From: Cj Martinez MD PCP: Dr. Anca Ramirez, DO Status:DEP SDC Y Race: C Location: [facility] Anesthesia Postop Eval I Sum Postop Eval Completion status Anesthesia document: Postop Eval 1 completed: Yes Anesthesia Postop Eval I Summary Anesthesia Postop Eval I Summary: Anesthesia Postop Eval I: Assessment Summary Airway patent Yes 10/14/24 18:43 CHEMISTRY ASSOCIATE.CSIR Spontaneous unlabored Yes 10/14/24 18:43 CHEMISTRY ASSOCIATE.CSIR respirations Mental status nausea No 10/14/24 18:43 CHEMISTRY ASSOCIATE.CSIR Vomiting No 10/14/24 18:43 CHEMISTRY ASSOCIATE.CSIR Anesthesia Postop Eval I: Fluid Summary Crystalloid volume administer 1,500 10/14/24 18:43 CHEMISTRY ASSOCIATE.CSIR (ml) Colloids volume administered ( ml) Blood Product volume administered (ml) Total IV fluid infused 1,500 10/14/24 18:43 CHEMISTRY ASSOCIATE.CSIR Anesthesia Postop Eval I: Summary Notes Anesthesia Complication No 10/14/24 18:43 CHEMISTRY ASSOCIATE.CSIR Anesthesia Complication Comment: Post-operative progress note Anesthesia: Postop Eval II Evaluation Mental status: Awake and Calm Pain Level: 1 nausea: No Vomiting: No Complications Anesthesia Complication: No 10/14/246 Date Cj Martinez MD Cosigner Signature: Date CC: Signed Normal [facility] Operative Reporton 5 Operative Report [facility] Medical Records Department [address] [place] [address] Operative Report 10/14/24 1839 MR#: [id number] Acct: [id number] Name: RONALD MELO Duncan Rep #: [id number] : 1970 54 From: Viet Rea MD PCP: Dr. Anca Ramirez, DO Status:REG [facility] Location: [place] [address] Operative Report (Standard) Operative Information Date of Procedure: 10/14/24 Pre-Operative Diagnosis: Right paratesticular mass Post-Operative Diagnosis: The same Surgery/Procedure Performed: Right radical orchiectomy regulatory submissions specialist: No Type of Anesthesia: General RN Documented [...] ; Dr. Viet Rea MD Signed Normal [facility] Surgery Specimen Level IIIon 10-14-2024 Surgery Specimen Level III Patient Age/Sex Location Account Attending Physician RONALD MEOL 54/M [facility] [id number] Dr. Viet Rea MD Specimen: [id number] Received: 10/17/24 Status: VIC [place] Num: [id number] Spec Type: TESTICLE Subm Dr: Dr. Viet Rea MD HEADER OPERATION: Orchiectomy PRE-OP DIAGNOSIS: Right paratesticular mass TISSUE SUBMITTED: A- Right testicle, B- Tail of spermatic cord MICROSCOPIC DIAGNOSIS A. Right testicle, radical orchiectomy: Metastatic mucinous adenocarcinoma. See note and comment. NOTE: Immunohistochemistry ([id number]) supports the above diagnosis and consistent with colonic primary. . B. Tail of spermatic cord, biopsy: Negative for carcinoma. SJ.mr 10/18/2024 COMMENT A. The tumor is present in the paratesticular, periepididymal and spermatic cord adiopse tissue. Involvement of the epididymis, testicle or vas deference is not seen. Please make reference to previous specimen from [facility] ([id number]) right colon, hemicolectomy specimen with diagnosis of [...] Location Account Attending Physician RONALD MELO 54/M [facility] [id number] Dr. Viet Rea MD GROSS DESCRIPTION A. [...] does not appear to involve testicular parenchyma. Chipper sections are submitted in twelve cassettes as [...] the area close to the suture. 10/17/2024 TC:0CPT:[id number] ADDENDUM Addendum 2 Entered: 12/07/24-0858 MISMATCH REPAIR (MMR) BY IHC WITH INTERPRETATION REPORT FROM [employer] INTERPRETATION: No loss of nuclear expression of MMR proteins: Low probability of MSI-H. Antibody Clone Description Results MLH1 M1 Mismatch repair protein Intact nuclear expression MSH2 U997-9011 Mismatch repair protein Intact nuclear expression MSH6 44 Mismatch repair protein Intact nuclear expression PMS2 IAZ0679 Mismatch repair protein Intact nuclear expression COMMENT: Background non-neoplastic tissue and/or internal control with intact nuclear expression. Please see complete report in e-chart or EMR Addendum Signed (signature on file) Dr. Letty Roach MD 12/08/24 0848 Patient Age/Sex Location Account Attending Physician RONALD MELO 54/M [facility] [id number] Dr. Viet Rea MD ADDENDUM (Continued) Addendum 1 Entered: 12/05/24- (more content not included)... Normal [facility] Comment on above: Performed By: #### P SUIII ####[facility] [id number] [place], [address] MR/Erinn 10-11-2024 MR/[facility] Medical Records Department [address] [place] [address] PAT - Anesthesia 10/11/24 1628 MR#: [id number] Acct: [id number] Name: RONALD MELO Rep #: [id number] : 1970 54 From: Cj Martinez MD PCP: Status:PRE [facility] Y Race: C Location: [facility] Pre-Assessment Diagnosis/Proposed Procedure Planned Operative Procedure(s): RIGHT ORCHIECTOMY RADICAL Anesthesia History 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 Hx Hospitalization No 10/07/24 13:54 Any Problems [...] take am of surgery PONV 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: 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 Female No 10/07/24 13:54 HX of Motion [...] 11/04/23 10:03 Respiratory Assessment Respiratory Assessment - 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: Respiratory Tract Infection Hx - 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 Hx Respiratory Tract Infection No 10/07/24 13:54 STOP Sleep Apnea STOP Sleep Apnea - 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: STOP Sleep Apnea - 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 Hx Hypertension No 10/07/24 13:54 Hx Sleep [...] Tobacco Use History Tobacco Use History - 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: Tobacco Use History - 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 Tobacco Use Smoking Status Current every day smoker 10/07/24 13:54 Hx Tobacco Use Yes 10/07/24 13:54 Years Smoking Packs Smoked per Day Smoking Cessation Date was within the last 15 years Hx Smoking Cessation Date Hx Smoking Cessation Counseling Hematologic Medial History Hematologic Hx - 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 Hx of Blood Transfusion No 10/07/24 13:54 [...] confused, unrespo /Reproduction History /Reproductive History - 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: /Reproductive Hx- 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 Hx Now No 10/07/24 13:54 Gestational Age [...] PO Q6H PRN pain 10/07/24 Unknown History mvmymer-tygxaycnacvss-gdpr eine 250 1 tab PO Q6H PRN pain 10/07/24 U nknown History mg-250 mg-65 mg tablet (Excedrin Extra Strength) ibuprofen 800 mg tablet (IBU) 800 mg PO Q8H PRN pain 10/07/24 Un known History Allergy/AdvReac Type Severity Reaction Status Date / Time No Known Allergies Allergy Verified 10/07/24 13:50 Family History (Reviewed 11/03/ (more content not included)... Normal [facility] CBC + DIFFon 10-09-2024 Baso # 0.03 x10EE3/UL Normal 0.00 - 0.10 [facility] Comment on above: Performed By: #### 2 95551 #### [facility],[address] [place] [address] Basophils/100 WBC (Bld) 0.5 % Normal 0.0 - 2.0 [facility] Comment on above: Performed By: #### 2 45870 #### [facility],[address] [place] [address] CBC + DIFF Normal [facility] Comment on above: Result Comment: CBC- COMPLETE BLOOD COUNT Performed By: #### 2 16128 #### [facility],[address] [place] [address] 27265 EO # 0.10 x10EE3/UL Normal 0.00 - 0.50 [facility] Comment on above: Performed By: #### 2 60121 #### [facility],[address] [place] [address] 18637 Eosinophils/100 WBC (Bld) 1.3 % Normal 0.0 - 7.0 [facility] Comment on above: Performed By: #### 2 19752 #### [facility],[address] [place] [address] Erythrocyte distribution width (RBC) [Ratio] 14.0 % Normal 12.0 - 15.6 [facility] Comment on above: Performed By: #### 2 39451 #### [facility],[address] [place], [place] [id number] Hematocrit (Bld) [Volume fraction] 48.9 % Normal 40.0 - 52.0 [facility] Comment on above: Performed By: #### 2 49616 #### [facility],[address] [place] [address] Hemoglobin (Bld) [Mass/Vol] 16.7 g/dL Normal 13.0 - 17.5 [facility] Comment on above: Performed By: #### 2 51557 #### [facility],[address] [place] [address] 36704 Lymph # 2.91 x10EE3/UL High 0.80 - 2.80 [facility] Comment on above: Performed By: #### 2 10637 #### [facility],[address] [place] [address] 83130 Lymphocytes/100 WBC (Bld) 39.6 % Normal 20.0 - 45.0 [facility] Comment on above: Performed By: #### 2 32692 #### [facility],[address] [place] [address] MANUAL DIFF N/A Normal [facility] Comment on above: Performed By: #### 2 57747 #### [facility],[address] [place] [address] MCH (RBC) [Entitic mass] 28 pg Normal 27 - 33 [facility] Comment on above: Performed By: #### 2 52429 #### [facility],[address] [place] [address] MCHC 34 X10 3 Normal 32 - 36 [facility] Comment on above: Performed By: #### 2 84188 #### [place] [address] MCV (RBC) [Entitic vol] 82 fL Normal 81 - 98 [facility] Comment on above: Performed By: #### 2 13082 #### [facility],[address] [place] [address] Lyon # 0.85 x10EE3/UL Normal 0.20 - 1.00 [facility] Comment on above: Performed By: #### 2 13282 #### [facility],[address] [place] [address] MONOS % 11.5 % High 0.0 - 10.0 [facility] Comment on above: Performed By: #### 2 33038 #### [place] [id number] Morphology Kirill (Bld) [Interp] REVIEWED Normal [facility] Comment on above: Performed By: #### 2 92126 #### [facility],[address] [place] [address] Neut # 3.46 x10EE3/UL Normal 1.50 - 7.10 [facility] Comment on above: Performed By: #### 2 92461 #### [facility],[address] [place] [address] 86768 Neutrophils/100 WBC (Bld) 47.1 % Normal 46.0 - 76.0 [facility] Comment on above: Performed By: #### 2 92921 #### [facility],[address] [place] [address] 98067 PLATELET 241 x10EE3/UL Normal 150 - 450 [facility] Comment on above: Performed By: #### 2 29700 #### [facility],[address] [place] [address] 51020 Platelet mean volume (Bld) [Entitic vol] 6.1 fL Low 6.4 - 10.5 [facility] Comment on above: Result Comment: AUTO MATED DIFFERENTIAL Performed By: #### 2 33097 #### [facility],[address] [place] [address] 75531 RBC 5.94 x 10EE6/UL Normal 4.50 - 6.00 [facility] Comment on above: Performed By: #### 2 13638 #### [facility],[address] [place] [address]0158 WBC 7.3 x 10EE3/UL Normal 4.5 - 10.8 [facility] Comment on above: Performed By: #### 2 02182 #### [facility],[address] [place] [address] 45933 ONC.NOTEon 02-26-2024 [place] [address] MedOn: Brief Note Signed:[id number] Name: RONALD MELO Duncan MRUN: [id number] : 1970 Loc: ONCMED Age / Sex: [...] Will arrange referral to surgical oncologist at [place] for further evaluation. May need consultation also with urologic surgeon at that facility. Will see him back after consult in [place]. Patient contacted by phone, who agreed with this plan. 02/26/24 1341 CC: You HORN, Navarro R. Normal [facility] CBC WITH AUTO DIFFon 024 BASO, ABSOLUTE (AUTO) 0.0 10 3/uL Normal 0.0-0.2 [facility] Comment on above: Performed By: #### C MP CEA 1, CBC #### [facility] [address] [place] [address] Basophils/100 WBC (Bld) 0.3 % Normal 0.0-1.0 [facility] Comment on above: Performed By: #### C CHINO CEA 1, CBC #### [facility] [address] [place] [address] 38463 EOSINOPHILS, ABSOLUTE (AUTO) 0.1 10 3/uL Normal 0.0-0.7 [facility] Comment on above: Performed By: #### C CHINO CEA 1, CBC #### [facility] [address] [place] [address]259 Eosinophils/100 WBC (Bld) 1.1 % Normal 0.0-5.0 [facility] Comment on above: Performed By: #### C MP CEA 1, CBC #### [facility] [address] [place] [address] 67649 Erythrocyte distribution width (RBC) [Ratio] 13.7 % Normal 11.5-14.0 [facility] Comment on above: Performed By: #### C MP CEA 1, CBC #### [facility] [place], [place] [address] Hematocrit (Bld) [Volume fraction] 43.9 % Normal 38.7-49.8 [facility] Comment on above: Performed By: #### C MP CEA 1, CBC #### [facility] [address] [place] [address] 50320 Hemoglobin (Bld) [Mass/Vol] 15.2 g/dL Normal 12.9-16.6 [facility] Comment on above: Performed By: #### C CHINO CEA 1, CBC #### [facility] [address] [place] [address] 59923 LYMPHOCYTES, ABSOLUTE (AUTO) 2.2 10 3/uL Normal 1.0-3.5 [facility] Comment on above: Performed By: #### C CHINO CEA 1, CBC #### [facility] [address] [place] [address] 07834 Lymphocytes/100 WBC (Bld) 33.7 % Normal 24.0-44.0 [facility] Comment on above: Performed By: #### C CHINO CEA 1, CBC #### [facility] [address] [place] [address] 13675 MCH (RBC) [Entitic mass] 28.4 pg Normal 27.0-31.0 [facility] Comment on above: Performed By: #### C CHINO CEA 1, CBC #### [facility] [address] [place] [address] 25954 MCHC (RBC) [Mass/Vol] 34.6 g/dL Normal 32.0-36.0 [facility] Comment on above: Performed By: #### C CHINO CEA 1, CBC #### [facility] [address] [place] [address] 80720 MCV (RBC) [Entitic vol] 82.2 fL Normal 78.0-100.0 [facility] Comment on above: Performed By: #### C CHINO CEA 1, CBC #### [facility] [address] [place] [address] 17891 MONOCYTES, ABSOLUTE (AUTO) 0.7 10 3/uL Normal 0.2-0.8 [facility] Comment on above: Performed By: #### C CHINO CEA 1, CBC #### [facility] [address] [place] [address] 82169 Monocytes/100 WBC (Bld) 10.5 % High 1.7-9.3 [facility] Comment on above: Performed By: #### C CHINO CEA 1, CBC #### [facility] [address] NEUTROPHILS, ABSOLUTE (AUTO) 3.5 10 3/uL Normal 1.5-6.7 [facility] Comment on above: Performed By: #### C MP CEA 1, CBC #### [facility] [address] [place] [address] 68387 Neutrophils/100 WBC (Bld) 54.4 % Normal 36.0-66.0 [facility] Comment on above: Performed By: #### C MP CEA 1, CBC #### [facility] [address] [place] [address] 51309 PLATELET COUNT 218 10 3/uL Normal 150-450 [facility] Comment on above: Performed By: #### C MP CEA 1, CBC #### [facility] [address] [place] [address] 38247 Platelet mean volume (Bld) [Entitic vol] 5.6 fL Low 6.0-9.5 [facility] Comment on above: Performed By: #### C MP CEA 1, CBC #### [facility] [address] [place] [address] 45283 RED BLOOD COUNT 5.34 x10 6/uL Normal 4.38-5.71 [facility] Comment on above: Performed By: #### C MP CEA 1, CBC #### [facility] [address] [place] [address] 61582 WHITE BLOOD COUNT 6.4 10 3/uL Normal 4.0-10.5 [facility] Comment on above: Performed By: #### C MP CEA 1, CBC #### [facility] [address] [place] [address] 11871 COMPREHENSIVE METABOLIC PANE Hany 02-24-2024 Albumin [Mass/Vol] 4.6 g/dL Normal 3.9-5.0 [facility] Comment on above: Performed By: #### C MP, CEA 1, CBC #### [facility] [address] [place] [address] 18564 Albumin/Globulin [Mass ratio] 1.4 {ratio} Normal 1.1-1.8 [facility] Comment on above: Performed By: #### C MP CEA 1, CBC #### [facility] [address] [place] [address] ALP [Catalytic activity/Vol] 56 U/L Normal 43-122 [facility] Comment on above: Performed By: #### C CHINO CEA 1, CBC #### [facility] [address] [place], [place] [address] ALT [Catalytic activity/Vol] 63 U/L High 7-56 [facility] Comment on above: Performed By: #### C CHINO CEA 1, CBC #### [facility] [address] [place] [address] 61884 Anion gap [Moles/Vol] 16 mmol/L Normal 9-18 [facility] Comment on above: Performed By: #### C CHINO CEA 1, CBC #### [facility] [address] [place] [address] 97473 AST [Catalytic activity/Vol] 46 U/L Normal 14-50 [facility] Comment on above: Performed By: #### C CHINO CEA 1, CBC #### [facility] [address] [place] [address] 58447 Bilirubin [Mass/Vol] 1.0 mg/dL Normal 0.2-1.3 [facility] Comment on above: Performed By: #### C CHINO CEA 1, CBC #### [facility] [address] [place] [address] 49100 BUN/CREATININE RATIO 8.8 Ratio Normal 5.0-42.0 [facility] Comment on above: Performed By: #### C CHINO CEA 1, CBC #### [facility] [address] [place] [address] 19954 Calcium [Mass/Vol] 9.0 mg/dL Normal 8.4-10.2 [facility] Comment on above: Performed By: #### C CHINO CEA 1, CBC #### [facility] [address] [place] [address] 99365 Chloride [Moles/Vol] 98 mmol/L Normal 98-107 [facility] Comment on above: Performed By: #### C CHINO CEA 1, CBC #### [facility] [address] [place] [address] 37789 CO2 [Moles/Vol] 23 mmol/L Normal 22-31 [facility] Comment on above: Performed By: #### C CHINO CEA 1, CBC #### [facility] [address] [place], [place] [address] Creatinine [Mass/Vol] 0.80 mg/dL Normal 0.80-1.30 [facility] Comment on above: Performed By: #### C CHINO CEA 1, CBC #### [facility] [address] [place], [place] [address] ESTIMATED CREAT CLEARANCE 108.99 Normal [facility] Comment on above: Result Comment: COCK CROFT-GAULT FORMULA 1973 Performed By: #### C CHINO CEA 1, CBC #### [facility] [address] [place], [place] [address] ESTIMATED GLOMERULAR FILT RATE 105 mL/min Normal [facility] Comment on above: Performed By: #### C CHINO CEA 1, CBC #### [facility] [address] [place] [address] 98168 Globulin (S) [Mass/Vol] 3.4 g/dL Normal [facility] Comment on above: Performed By: #### C CHINO CEA 1, CBC #### [facility] [address] [place], [place] [address] Glucose [Mass/Vol] 128 mg/dL High 70-99 [facility] Comment on above: Result Comment: The glucose range is based on recommendations from the [place] [employer] for fasting blood glucose range. Performed By: #### C CHINO CEA 1, CBC #### [facility] [address] [place], [place] [address] Potassium [Moles/Vol] 3.5 mmol/L Low 3.6-5.0 [facility] Comment on above: Performed By: #### C CHINO CEA 1, CBC #### [facility] [address] [place], [place] [address] Protein [Mass/Vol] 8.0 g/dL Normal 6.3-8.2 [facility] Comment on above: Performed By: #### C CHINO CEA 1, CBC #### [facility] [address] [place], [place] [address] Sodium [Moles/Vol] 133 mmol/L Low 137-145 [facility] Comment on above: Performed By: #### C MP, CEA 1, CBC #### [facility] [address] [place], [place] [address] Urea nitrogen [Mass/Vol] 7 mg/dL Normal 7-21 [facility] Comment on above: Performed By: #### C MP, CEA 1, CBC #### [facility] [address] [place], [place] [address] AGE,PATIENT 53 Years Normal [facility] Comment on above: Performed By: #### C MP, CEA 1, CBC #### [facility] [address] [place], [place] [address] MedOnc/Hematology Consult H& Krish 02-24-2024 MedOnc/Hematology Consult H&P [address] [id number] MedOnc/Hematology Consult H P Signed with Addenda:[id number] Name: RONALD MELO MRUN: [id number] : 1970 Loc: ONCMED Age / Sex: 53/ M Adm Status: REG RCR Adm Date:02/24/24 Room/Bed: ADDENDUM-------- -- Baseline labs obtained today - CBC and CMP normal. CEA 3.8. 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 Underwent right hemicolectomy on 07/08/2023 at [facility] in [place]. Final pathology showed mucinous adenocarcinoma, moderately differentiated (grade 2), tumor invading muscularis propria. Margins were negative. 1 out of 22 positive lymph nodes. Pathologic stage T2 N1a, stage IIIa. He was subsequently seen by medical oncologist in [place], and started adjuvant chemotherapy with [place] ox [...] Sweats Respiratory: (more content not included)... Normal [facility] PET, SKULL BASE TO MID THIGH on 02-22-2024 PET, SKULL BASE TO MID THIGH [facility] [address] [place], [place] [id number] Diagnostic Imaging Report : [id number] Signed with Addenda Name: RONALD MELO MRUN: [id number] : 1970 Loc: PET Age / Sex: 53 / M ADM Status: DEP CLI ADM Date: 02/20/24 Room/Bed: Ordering Physician: Navarro Orta MD Procedure: PET, SKULL BASE TO MID THIGH Order Number(s): [id number] Ordered Date: 02/20/24 Ordered Time: ADDENDUM-------- -- [...] 02/22/24 1241 Transcribed Date/Time: 02/22/24 1238 Normal [facility] Basic Metabolic Panelon 05- Anion gap [Moles/Vol] 15.7 mmol/L Normal 8.0-16.0 [facility] Comment on above: Performed By: #### B MP #### [facility] [address] [place] [address] Calcium [Mass/Vol] 8.5 mg/dL Normal 8.2-10.0 [facility] Comment on above: Performed By: #### B MP #### [facility] [address] [place] [address] Chloride [Moles/Vol] 100 mmol/L Normal 94-110 [facility] Comment on above: Performed By: #### B MP #### [facility] [address] [place] [address] CO2 [Moles/Vol] 26 mmol/L Normal 21-34 [facility] Comment on above: Performed By: #### B MP #### [facility] [address] [place] [address] Creatinine [Mass/Vol] 0.71 mg/dL Normal 0.50-1.17 [facility] Comment on above: Performed By: #### B MP #### [facility] [address] [place] [address] EGFR Other Races >60 Normal >60 [facility] Comment on above: Performed By: #### B MP #### [facility] [address] [place] [address] GFR/1.73 sq M.predicted among blacks MDRD (S/P/Bld) [Vol rate/Area] mL/min/{1.73_m2} Normal >60 [facility] Comment on above: Result Comment: Net Programmer samia Kidney Disease less than 60 mL/min/1.73 m2 Kidney Failure less than 15 mL/min/1.73 m2 Average estimated GFR by age: 50-59 years 93 mL/min/1.73 m2 Performed By: #### B MP #### [facility] [address] [place] [address] Glucose [Mass/Vol] 215 mg/dL High 65-100 [facility] Comment on above: Performed By: #### B MP #### [facility] [address] [place] [address] Potassium [Moles/Vol] 3.7 mmol/L Normal 3.3-5.1 [facility] Comment on above: Performed By: #### B MP #### [place] [address] [place] [address] Sodium [Moles/Vol] 138 mmol/L Normal 132-145 [facility] Comment on above: Performed By: #### B MP #### [address] [address] Urea nitrogen [Mass/Vol] 7.0 mg/dL Normal 3.2-26.9 [facility] Comment on above: Performed By: #### B MP #### [address] [address] Urea nitrogen/Creatinine [Mass ratio] 10 mg/mg Normal 6-20 [facility] Comment on above: Performed By: #### B MP #### [place] [id number] CBC w/Auto Differentialon Basophils Abs. # 0.03 K/uL Normal 0.00-0.10 [facility] Comment on above: Performed By: #### C BCS #### [place] [address] [place] [address] Basophils/100 WBC (Bld) 0.6 % Normal 0.2-1.0 [facility] Comment on above: Performed By: #### C BCS #### [place] [address] [place] [address] Eosinophils (Bld) [#/Vol] 0.10 10*3/uL Normal 0.00-0.20 [facility] Comment on above: Performed By: #### C BCS #### [address] [address] Eosinophils/100 WBC (Bld) 2.4 % Normal 0.9-2.9 [facility] Comment on above: Performed By: #### C BCS #### [place] [address] [place] [address] Erythrocyte distribution width (RBC) [Ratio] 13.0 % Normal 11.5-14.5 [facility] Comment on above: Performed By: #### C BCS #### [address] [address] Hematocrit (Bld) [Volume fraction] 44.3 % Normal 36.7-50.6 [facility] Comment on above: Performed By: #### C BCS #### [address] [address] Hemoglobin (Bld) [Mass/Vol] 15.0 g/dL Normal 12.4-17.3 [facility] Comment on above: Performed By: #### C BCS #### [place] [address] [place] [address] Imm Grans % 0.20 % Normal 0.00-1.00 [facility] Comment on above: Performed By: #### C BCS #### [address] [address] Imm Grans Absolute # 0.01 K/uL Normal 0.00-0.10 [facility] Comment on above: Performed By: #### C BCS #### [address] [address] Lymphocytes (Bld) [#/Vol] 1.80 10*3/uL Normal 1.30-2.90 [facility] Comment on above: Performed By: #### C BCS #### [address] [address] Lymphocytes/100 WBC (Bld) 34.2 % Normal 17.0-45.5 [facility] Comment on above: Performed By: #### C BCS #### [place] [address] [place] [address] MCH (RBC) [Entitic mass] 28.3 pg Normal 27.0-31.0 [facility] Comment on above: Performed By: #### C BCS #### [place] [address] [place] [address] MCHC (RBC) [Mass/Vol] 33.9 g/dL Normal 33.0-37.0 [facility] Comment on above: Performed By: #### C BCS #### [place] [address] [place] [address] MCV (RBC) [Entitic vol] 83.6 fL Normal 80.0-94.0 [facility] Comment on above: Performed By: #### C BCS #### [place] [address] [place] [address] Monocytes (Bld) [#/Vol] 0.60 10*3/uL Normal 0.30-0.80 [facility] Comment on above: Performed By: #### C BCS #### [place] [address] [place] [address] Monocytes/100 WBC (Bld) 12.0 % High 5.5-11.7 [facility] Comment on above: Performed By: #### C BCS #### [place] [address] [place] [address] Neutrophils Abs. # 2.69 K/uL Normal 2.20-4.80 [facility] Comment on above: Performed By: #### C BCS #### [address] [place] [address] Neutrophils/100 WBC (Bld) 50.6 % Normal 43.0-65.0 [facility] Comment on above: Performed By: #### C BCS #### [place] [address] [place] [address] Platelet mean volume (Bld) [Entitic vol] 7.7 fL Normal 7.4-10.4 [facility] Comment on above: Performed By: #### C BCS #### [place] [address] [place] [address] Platelets (Bld) [#/Vol] 173 10*3/uL Normal 148-402 [facility] Comment on above: Performed By: #### C BCS #### [place] [address] [place] [address] RBC (Bld) [#/Vol] 5.30 10*6/uL Normal 4.13-5.69 [facility] Comment on above: Performed By: #### C BCS #### [place] [address] [place] [address] WBC (Bld) [#/Vol] 5.3 10*3/uL Normal 3.6-10.8 [facility] Comment on above: Performed By: #### C BCS #### [address] [address] CHEST APon 12-23-2023 CHEST AP EXAMINATION: ONE XRAY VIEW OF THE CHEST 12/23/2023 10:38 am COMPARISON: None. HISTORY: ORDERING SYSTEM PROVIDED HISTORY: POST MEDIPORT REMOVAL FINDINGS: The lungs are without acute focal process. There is no effusion or pneumothorax. The cardiomediastinal silhouette is without acute process. The osseous structures are without acute process. IMPRESSION: No acute process. Normal [facility] Prostate Specific Agon 12-10 Prostate specific Ag [Mass/Vol] 0.5 ng/mL Normal 0.0-4.0 [facility] Comment on above: Result Comment: Trent GOMEZ methodology. According to the [place] [employer], Serum PSA should decrease and [...] or absence of malignant disease. Performed at: [facility] [id number] Manager Educational: Jonny Aj PhD, Phone: [phone] Performed By: #### P SA #### [address] [address] EMERGENCY REPORTon 4 EMERGENCY REPORT [facility] EMERGENCY ROOM REPORT NAME ACCOUNT SEX AGE ADMIT DISCHARGE PT MED. RECORD# NUMBER DATE DATE TYPE KAMERON [id number] Alie 53 11/30/23 11/30/23 3 RONALD Duncan [id number] ROOM: ER DATE OF : 1970 DICTATING [...] David Ramirez MD 11/30/23 15:13 JOB #: [id number] Transcribed By: dane 11/30/23 16:50 Electronically signed by: HIEN Ramirez M.D. 12/05/23 07:03 Page 2 of 2 RONALD MELO Emergency Room Report Normal [facility] SCROTALon 11-30-2023 [place] [address] Patient: KAMERON RONALD Song. Phone#: : [phone] Age: 53 Gender: M Pt. Type: ER Account: [id number] Location: [facility] Ordering: DAVID RAMIREZ Exam Date: 11/30/2023/13:04 Family Phys: YOANDY CABRAL Charge Code: 764074 Physician: [place] Order #: [id number] Dose#: PROCEDURE: SCROTAL ULTRASOUND COMPARISON: [place], CT, CHEST/ABDOMEN/PELVIS W CON, 06/26/2023, 9:19. INDICATIONS: [...] Cary MD on 11/30/2023 at 14:[address] [facility] Absolute lymphocyte countOrd ered By: George Avila on 11-04-2023 Lymphocytes Auto (Unsp spec) [#/Vol] 1.80 10*3/uL 0.83-4.51 [facility] Automated lymphocyte count a s percentage of total leukocytesOrdered By: George Avila on 11-04-2023 Lymphocytes/100 WBC Auto (Unsp spec) 31.1 % 19-41 [facility] Determination of erythrocyte mean corpuscular volume (MCV)Ordered By: George Avila on 11-04-2023 MCV (RBC) [Entitic vol] 81.5 fL 80-94 [facility] Erythrocyte distribution wid th standard deviationOrdered By: George Avila on 11-04-2023 Erythrocyte distribution width (RBC) [Ratio] 24.4 % High 11.6-14.6 [facility] [employer] mix RAST testO rdered By: George Avila on 11-04-2023 Albumin [Mass/Vol] 3.8 g/dL 3.2-5.0 [facility] [facility] Anion gap [Moles/Vol] 5 mmol/L 5-15 [facility] AST [Catalytic activity/Vol] 42 U/L High 15-37 [facility] Hematocrit Auto (Bld) [Volum e fraction]Ordered By: George Avila on 11-04-2023 Hematocrit (Bld) [Volume fraction] 39.6 % Low 40-54 [facility] Immature granulocytes/100 WB C Auto (Bld)Ordered By: George Avila on 11-04-2023 Immature granulocytes/100 WBC (Bld) 0.300 % 0.0-0.9 [facility] Comment on above: IG% - Immature Granu locytes (promyelocytes, myelocytes and metamyelocytes) > 1% indicates that a LEFT SHIFT is Present. Laboratory - Chemistry and C hemistry - challengeOrdered By: George Avila on 11-04-2023 Albumin/Globulin [Mass ratio] 1.1 {ratio} 0.9-2.4 [facility] ALP [Catalytic activity/Vol] 77 U/L 45-117 [facility] ALT [Catalytic activity/Vol] 49 U/L 16-61 [facility] CO2 [Moles/Vol] 27.0 mmol/L 21.0-32.0 [facility] Globulin (S) [Mass/Vol] 3.6 g/dL 2.2-4.2 [facility] Urea nitrogen/Creatinine [Mass ratio] 12.7 mg/mg 10-20 [facility] Laboratory - Hematology and Cell countsOrdered By: George Avila on 11-04-2023 Erythrocyte distribution width (RBC) [Entitic vol] 70.4 fL High 35.1-43.9 [facility] MCH (RBC) [Entitic mass] 27.2 pg 27.0-32.0 [facility] MCHC (RBC) [Mass/Vol] 33.3 g/dL 32-36 [facility] Nucleated RBC/100 WBC (Bld) [Ratio] 0 % 0-5 [facility] Platelet mean volume (Bld) [Entitic vol] 7.9 fL 6.2-12.0 [facility] Platelets (Bld) [#/Vol] 113 10*3/uL Low 150-450 [facility] No Panel InformationOrdered By: George Avila on 11-04-2023 Estimated Creatinine Clearance Calc 116.02 ml/min [facility] Estimated GFR (MDRD) Amer 118 mL/min >60 [facility] Comment on above: GFR Calc Estimated GFR (MDRD) Non-Af Amer 98 mL/min >60 [facility] Comment on above: Non- GFR Calc RBC Auto (Bld) [#/Vol]Ordere d By: George Avila on 11-04-2023 RBC (Bld) [#/Vol] 4.86 10*6/uL 4.6-6.2 [facility] Serum creatinine measurement (mass/volume)Ordered By: George Avila on 11-04-2023 Creatinine [Mass/Vol] 0.86 mg/dL 0.70-1.30 [facility] Comment on above: The validity of the calculated GFR & GFRAA in patients over 70 years has not been determined. Clinical correlation is essential. Serum or plasma calcium annie urement (mass/volume)Ordered By: George Avila on 11-04-2023 Calcium [Mass/Vol] 9.3 mg/dL 8.5-10.1 [facility] Serum or plasma urea nitroge n measurement (mass/volume)Ordered By: George Avila on 11-04-2023 Urea nitrogen [Mass/Vol] 11 mg/dL 7-18 [facility] Trichomonas screening testOr dered By: George Avila on 11-04-2023 Basophils/100 WBC (Bld) 0.5 % 0-1 [facility] Bilirubin [Mass/Vol] 0.70 mg/dL 0.20-1.00 [facility] Comment on above: For patients on eltr ombopag therapy, use of Dimension [place] TBIL is not recommended. Chloride [Moles/Vol] 104 mmol/L 98-107 [facility] Eosinophils/100 WBC (Bld) 0.9 % 0-5 [facility] Glucose [Mass/Vol] 204 mg/dL High 74-106 [facility] Comment on above: Glucose result great er than or equal to 200 mg/dLsuggests DIABETES MELLITUS per A.D.A. criteria. Hemoglobin (Bld) [Mass/Vol] 13.2 g/dL 13.0-16.5 [facility] LDH [Catalytic activity/Vol] 266 U/L High 87-241 [facility] Monocytes/100 WBC (Bld) 20.6 % High 0-10 [facility] Neutrophils (Bld) [#/Vol] 2.7 10*3/uL 2.0-7.7 [facility] Neutrophils/100 WBC (Bld) 46.6 % Low 47-70 [facility] Potassium [Moles/Vol] 4.3 mmol/L 3.5-5.1 [facility] Protein [Mass/Vol] 7.4 g/dL 6.4-8.2 [facility] Sodium [Moles/Vol] 136 mmol/L 136-145 [facility] WBC (Bld) [#/Vol] 5.8 10*3/uL 4.4-11.0 [facility] Laboratory - Chemistry and C hemistry - challengeOrdered By: George Avila on 10-21-2023 Magnesium [Mass/Vol] 2.0 mg/dL 1.6-2.6 [facility] Laboratory - Hematology and Cell countsOrdered By: George Avila on 10-21-2023 Anisocytosis Ql (Bld) 2+ [facility] Ovalocyte detectionOrdered B y: George Avila on 10-21-2023 Ovalocytes LM Ql (Bld) 1+ [facility] COVID-19 virus antigen assay Ordered By: George Avila on 10-14-2023 SARS-CoV-2 (COVID-19) Ag IA.rapid Ql (Resp) [facility] Blood manual differential co mment interpretation (narrative result)Ordered By: George Avila on 09-30-2023 Manual differential comment Kirill (Bld) [Interp] SCANNED [facility] Folate [Mass/volume] in Seru m or PlasmaOrdered By: George Avila on 08-19-2023 Folate [Mass/Vol] 16.60 ng/mL 3.1-55.4 [facility] Iron measurement (mass/mass) Ordered By: George Avila on 08-19-2023 Iron (Unsp spec) [Mass/Mass] 16 ug/dL Low 65-175 [facility] Laboratory - Chemistry and C hemistry - challengeOrdered By: George Avila on 08-19-2023 Cobalamin (Vitamin B12) [Mass/Vol] 360 pg/mL 211-911 [facility] No Panel InformationOrdered By: George Avila on 08-19-2023 Total Iron Binding Capacity 362 ug/dL 250-450 [facility] Serum or plasma ferritin raad surement (mass/volume)Ordered By: George Avila on 08-19-2023 Ferritin [Mass/Vol] 24 ng/mL Low 26-388 [facility] Serum or plasma iron saturat ion measurement (mass fraction)Ordered By: George Avila on 08-19-2023 Iron saturation [Mass fraction] 4.4 % Low 15.0-55.0 [facility] Vital Signs Date Time Vital Sign Value Performing Clinician Faci lity 04-03-2025 15:53-0400 Body height 177.[address] Anca Ramirez DO Work Phone: [facility] 04-03-2025 15:53-0400 Body mass index (BMI) [Ratio] 31.7 kg/m2 Dr. Anca Ramirez DO Work Phone: [facility] 04-03-2025 15:53-0400 Body temperature 97 [degF] Dr. Anca Ramirez DO Work Phone: [facility] 04-03-2025 15:53-0400 Body weight 100.[address] Anca Ramirez DO Work Phone: [facility] 04-03-2025 15:53-0400 Diastolic blood pressure 79 mm[Hg] Dr. Anca Ramirez DO Work Phone: [facility] 04-03-2025 15:53-0400 Heart rate 90 /min Dr. Anca Ramirez DO Work Phone: [facility] 04-03-2025 15:53-0400 Respiratory rate 18 /min Dr. Anca Ramirez DO Work Phone: [facility] 04-03-2025 15:53-0400 SaO2% (BldA) [Mass fraction] 97 % Dr. Anca Ramirez DO Work Phone: [facility] 04-03-2025 15:53-0400 Systolic blood pressure 131 mm[Hg] Dr. Anca Ramirez DO Work Phone: [facility] 12-20-2024 15:55-0400 Body height 177.[address] Anca Ramirez DO Work Phone: [facility] 12-20-2024 15:55-0400 Body mass index (BMI) [Ratio] 31.7 kg/m2 Dr. Anca Ramirez DO Work Phone: [facility] 12-20-2024 15:55-0400 Body temperature 98.5 [degF] Dr. Anca Ramirez DO Work Phone: [facility] 12-20-2024 15:55-0400 Body weight 100.[address] Anca Ramirez DO Work Phone: [facility] 12-20-2024 15:55-0400 Diastolic blood pressure 80 mm[Hg] Dr. Anca Ramirez DO Work Phone: [facility] 12-20-2024 15:55-0400 Heart rate 70 /min Dr. Anca Ramirez DO Work Phone: [facility] 12-20-2024 15:55-0400 Respiratory rate 18 /min Dr. Anca Ramirez DO Work Phone: [facility] 12-20-2024 15:55-0400 SaO2% (BldA) [Mass fraction] 99 % Dr. Anca Ramirez DO Work Phone: [facility] 12-20-2024 15:55-0400 Systolic blood pressure 127 mm[Hg] Dr. Anca Ramirez DO Work Phone: [facility] Encounters Encounter Date Encounter Type Care Provider Facility Start: 04-03-2025 End: 04-03-[address] George Avila MD -[facility] Work Phone: Start: 04-03-2025 End: 04-03-[address] Anca Ramirez DO Work Phone: -[facility] Start: 03-27-2025 End: 03-27-[address] George Avila MD -[facility] Work Phone: Start: 03-27-[address] George Avila MD -[facility] Start: 03-27-2025 End: 03-27-[address] Anca Ramirez DO Work Phone: -[facility] Start: 03-27-2025 End: 03-27-2025 ambulatory [facility] Facility:[facility] Start: 12-20-2024 End: 12-20-[address] George Avila MD -[facility] Work Phone: Start: 12-20-2024 End: 12-20-2024 ambulatory George Aivla Facility:[facility] Start: 11-30-2024 End: 11-30-2024 ambulatory [facility] Facility:[facility] Start: 11-21-2024 End: 11-21-2024 ambulatory Anca Ramirez Facility:[facility] Start: 10-14-2024 End: 10-14-2024 ambulatory Viet Rea Facility:[facility] Start: 10-09-2024 End: 10-09-2024 [facility] Start: 06-22-2024 ambulatory GAYLE [facility] Start: 03-22-2024 End: 03-22-2024 ambulatory ANCA RAMIREZ [facility] Start: 03-21-2024 End: 03-21-2024 ambulatory MELANY MONARodrigo [facility] Start: 03-11-2024 End: 03-11-2024 ambulatory PROVIDER NOT IN SYSTEM [facility] Start: 03-01-2024 End: 03-01-2024 ambulatory ANCA RAMIREZ [facility] Start: 02-24-2024 End: 05-24-2024 ambulatory ANCA RAMIREZ [...] 11-30-2023 Emergency department patient visit DAVID RAMIREZ [facility] Procedures Date Procedure Procedure Detail Performing [...] 1, CBC #### Main Lab - [facility] [address] [place] [address] Start: 10-21-[address] Anca Ramirez DO Work Phone: Start: 10-14-[address] Anca Ramirez DO Work Phone: Plan of Treatment Date Care Activity Detail Author Start: 09-02-2023 Venous catheter care management [facility] Payers Date Payer Category Payer Medicaid [id number] 2023 Self-pay 2023 Unknown [id number] 1970 Unknown [id number] 2.16. [id number] 1970 Unknown [id number] 2.16. [id number] 1970 Unknown [id number] 2.16.8 40.1.308745.3.579.2.651 1970 Unknown [id number] 2.16.8 40.1.421418.3.579.2.651 1970 Unknown [id number] 2.16.8 40.1.263970.3.579.2.651 Unknown [id number] 2.16.8 40.1.540732.3.579.2.443 Unknown [id number] 2.16.8 40.1.838996.3.579.2.443 Unknown [id number] 2.16.8 40.1.954765.3.579.2.528 Unknown [id number] 2.16.8 40.1.611286.3.579.2.528 Unknown [id number] 2.16.8 40.1.019829.3.579.2.528 Unknown [id number] 2.16.8 40.1.486721.3.579.2.528 Unknown [id number] 2.16.8 40.1.477575.3.579.2.528 Unknown [id number] Unknown [id number] 2.16.8 40.1.612369.3.579.2.462 Unknown [id number] 2.16.8 40.1.621003.3.579.2.462 Unknown [id number] 2.16.8 40.1.092618.3.579.2.462 Unknown [id number] 2.16.8 40.1.854042.3.579.2.462 Unknown [id number] 2.16.8 40.1.132242.3.579.2.462 Unknown [id number] 2.16.8 40.1.299775.3.579.2.462 Unknown [id number] 2.16.8 40.1.214037.3.579.2.462 Social History Date Type Detail Facility Start: 11-21-2024 Tobacco smoking stat [facility] Current some day smoker [facility] Start: 1970 Sex Assigned At Male [facility] Radiology Diagnostic study note 03-29-2025 Note Date & Type Note Facility 03-29-2025 Radiology Diagnostic study note [facility] Imaging Services [address] [place] [address] CT Chest, Abd, Pel w/Contrast MR#: [id number] Acct: [id number] Name: RONALD MELO Rep #: [id number] : 1970 M 55 From: Adilson Rivera MD PCP: Dr. Anca Ramirez, DO Status: RE G CLI Study:CT Chest, Abd, Pel w/Contrast Date of E xam: 03/27/25 Exam# [id number] Ordering Dr: Panda Avila MD PROCEDURE: CT CHEST, ABD, PEL W/CONTRAST 03/27/2025 REASON FOR EXAM: COLON [id number] History of partial colon resection and right [...] postoperative changes. Clinical correlation recommended. Reading Location: [id number] CC: Dr. Anca Ramirez DO; Dr. George Avila MD ~ Bilingual Case Manager: Signed [facility] Evaluation note 12-20-2024 Note Date & Type Note Facility 12-20-2024 Evaluation note Diagnosis Onset Date Resolution Colon cancer chronic December 20, 2024 3:50pm Metastatic adenocarcinoma chronic December 20, 2024 3:50pm [facility] Work Phone: Evaluation note 12-20-2024 Note Date & Type Note Facility 12-20-2024 Evaluation note Diagnosis Onset Date Resolution Colon cancer chronic December 20, 2024 3:50pm Metastatic adenocarcinoma chronic December 20, 2024 3:50pm Colon cancer chronic April 03, 2025 3:29pm Metastatic adenocarcinoma chronic April 03, 2025 3:29pm [facility] Work Phone: Clinical Note 10-14-2024 Note Date & Type Note Facility 10-14-2024 Note [facility] Medical Records Department [address] [place] [address] History Physical Exam 10/14/24 1836 MR#: [id number] Acct: [id number] Name: RONALD MELO Rep #: [id number] : 1970 54 From: Viet Rea MD PCP: Dr. Anca Ramirez, DO Status:REG [facility] Location: [place] [address] HPI - General General Date of Service: [...] PO Q6H PRN pain 10/07/24 Unknown History [id number] 250 1 tab PO Q6H PRN pain [...] Ramirez DO; Dr. Viet Rea MD Signed [facility] Progress note 03-22-2024 Note Date & Type Note Facility 03-22-2024 Note Subjective Patient ID: Ronald eMlo is a 54 y.o. male. HPI 54-year-old [...] AUTHENTICATED BY MELANY QUIJANO, ON 03/22/2024 14:17:57 [facility] Ambulatory Clinical Note 01-14-2024 Note Date & Type Note Facility 01-14-2024 [place] [address] HEALTH INFORMATION MANAGEMENT OPERATIVE REPORT : [id number] Signed Patient: RONALD MELO Acct:[id number] MRUN : [id number] : 1970 Sex: M Loc: SDS ADM Date: Room/Bed: DISC Date: 01/08/24 __ Procedure DATE OF SERVICE: 01/08/24 SURGEON: NAVARRO ORTA ATTENDING PHYSICIAN: NAVARRO ORTA ASSISTANT WOMEN'S SOCCER COACH: sheri TYPE OF ANESTHESIA: General Preoperative Diagnosis: [...] CC: ANCA RAMIREZ MD; NAVARRO ORTA MD [facility] History and physical note 01-07-2024 Note Date & Type Note Facility 01-07-2024 [place] [address] HEALTH INFORMATION MANAGEMENT HISTORY AND PHYSICAL : [id number] Signed with Mariaelena Patient: RONALD MELO Acct:[id number] MRUN : [id number] : 1970 Sex: M Loc: SDS ADM [...] for complaints of , then admitted to [facility] for N43.3. RONALD was admitted as a PRE to [facility] for further evaluation and treatment. Pt [...] Co Signed Date/Time: CC: ANCA RAMIREZ MD [facility] Reason for referral (narrative) Note Date & Type Note Facility Reason for referral (narrative) No reason for referral information available [facility] Work Phone: Summary Purpose Family History No Family History Records Found Relationship Condition Age at Onset Recorded Date/T majo mother Malignant neoplasm Unknown father Myocardial infarction Unknown Cardiac disease Unknown Advance Directives No Advanced Directives Records Found Advance Directive Response Recorded Date/ Time Advance Directives on File Yes 2023 11:51am Living Will Yes October 21 11:51am Do you have a Healthcare Power of Chip Machine Operator? Yes October 21, 2023 11:51am Name of Medical Power of Chip Machine Operator Swapna Melo October 21, 2023 11:51am Advance [...] section and content) DATE CREATED AUTHOR 03/25/2024 [facility] DATE CREATED AUTHOR AUTHOR'S ORGANIZ ATION 03/25/2024 [facility] DATE CREATED AUTHOR AUTHOR'S ORGANIZ ATION 05/27/2024 [facility] DATE CREATED AUTHOR AUTHOR'S ORGANIZ ATION 07/08/2024 [facility] DATE CREATED AUTHOR AUTHOR'S ORGANIZ ATION 10/10/2024 [facility] DATE CREATED AUTHOR AUTHOR'S ORGANIZ ATION 12/05/2024 [facility] DATE CREATED AUTHOR AUTHOR'S ORGANIZ ATION 04/05/2025 [facility] Care Teams (unrecognized sec tion and [...] BE BASED ON THE PRIMARY CLINICAL RECORDS. [employer] [facility]. provides no warranty or guarantee of the accuracy or completeness of information in this document.
[2025-04-09 08:08] LABS: Carcinoembryonic Antigen 5.7 ng/mL (0.0-4.7)
== END | disposition home or self-care (01) ==
LOC: LAB 09:58
PROVIDERS: PCP Student in an Organized Health Care Education/Training Program; Referring Provider Internal Medicine Medical Oncology; Visit Provider Internal Medicine Medical Oncology
DX: C62.91 Malignant neoplasm of right testis, unspecified whether descended or undescended (principal); C18.2 Malignant neoplasm of ascending colon
CPT/HCPCS: 36415; 82378